=== PATIENT | male | born 1940 | race Caucasian/White ===

== ENCOUNTER 2016-02-07 14:31 | Inpatient (IN) | payer MEDICARE ==
[~2016-02-07] VITALS: Ht 182.9 cm; Wt 117.9 kg
[~2016-02-07 14:31] MED LIST: AMITRIPTYLINE100 MG PO; ANTIVERT12.5 MG PO; ANTIVERT25 MG PO; ASPIRIN325 MG PO; BUMEX 1 MG TAB1 MG PO; CELEXA20 MG PO; COLACE100 MG PO; EZFE 200200 MG PO; HUMALOG 30100 UNITS/ SC; HYDROCODONE-APA1 TAB PO; IPRAT-ALBUT 0.5-3 ML UPD; K-DUR20 MEQ PO; K-TAB10 MEQ PO; LANOXIN125 MCG PO; LANTUS INSULIN10 ML SC; LISINOPRIL10 MG PO; LOPRESSOR25 MG PO; METAGLIP 5/5001 TAB PO; MOTRIN800 MG PO; NASONEX NASAL S17 GM NS; NITROQUICK0.4 MG SL; NORCO 10/325 TA1 TA1 PO; NYSTATIN ORAL SU5 ML PO; OMEGA-3100 MG PO; PLAVIX75 MG PO; PRILOSEC20 MG PO; SINEMET CR 50-1 EACH PO; SINEMET CR 51 TAB.S1 PO; TOPICORT 0.25 %15 G1 TP; VIBRAMYCIN50 MG PO; ZOCOR40 MG PO
[2016-02-07 16:13] VITALS: BP 140/71
--- NOTE | 2016-02-07 17:58 | NUR ---
Pt was admitted to Rehab Unit from Med Surg. floor. He was and is alert and oriented x 3. Son was with him but has since gone home. He was brought to Rehab via wheelchair and 2 aides from Med Surg. floor. Vital signs were: Temp. 97.8 orally, pulse 76, resp. 14, b/p 140/71, 02Sat. 95%. Pt. has a saline lock in his left forearm. Bed alarm on. 02 at 3L/min per nc. Will be monitoring pt. and assisting prn with adl's. No voiced complaints of pain or discomfort. Call light in reach. Pt. was upset because he thought he was getting a single room and the Charge nurse was asked to speak with this pt. about this.
--- NOTE | 2016-02-07 19:35 | NUR ---
PT IS RESTING IN BED WITH EYES OPEN. ALERT AND ORIENTED X 3. DENIES ACUTE DISCOMFORT AT THIS TIME. LEFT FA SALINE LOCK NOTED. VSS. O2 IS ON @ 3LPM PER NC. SR'S ARE UP X 2 IN BED. CALL LIGHT AND BEDSIDE TABLE ARE WITHIN EASY REACH.
[2016-02-07 21:08] VITALS: BP 114/51
--- NOTE | 2016-02-07 22:11 | NUR ---
PT RESTING IN BED WITH EYES CLOSED. NO DISTRESS NOTED.
--- NOTE | 2016-02-07 23:49 | NUR ---
PT IS RESTING IN BED WITH EYES CLOSED.
--- NOTE | 2016-02-08 02:24 | NUR ---
PT RESTING IN BED WITH EYES CLOSED.
--- NOTE | 2016-02-08 05:45 | NUR ---
PT RESTING QUIETLY, RESPIRATIONS REGULAR AND UNLABORED, NO S/S OF ACUTE DISTRESS.
--- NOTE | 2016-02-08 07:00 | NUR ---
Pt. was received at the beginning of this shift in bed awake and oriented x 3. Call light was in reach. No voiced complaints or signs of discomfort or distress. Will be monitoring him throughout this shift and assisting prn with adl's.
[2016-02-08 08:38] VITALS: BP 132/78
[2016-02-08 12:57] VITALS: Ht 182.9 cm; Wt 117.9 kg
--- NOTE | 2016-02-08 16:56 | NUR ---
Pt. has had an uneventful day. Resting in bed at present time. No complaints of anykind. Blood sugar levels checked per order. Pt. wearing 02 per nc going at 3L/min.
[2016-02-08 19:00] VITALS: BP 141/68
--- NOTE | 2016-02-08 20:00 | NUR ---
PT IS RESTING IN BED WITH EYES OPEN. ALERT AND ORIENTED X 4. DENIES ACUTE DISCOMFORT AT THIS TIME. VSS. USING URINAL PRN. USES O2 @ 3LPM PRN. SR'S ARE UP X 2 IN BED. CALL LIGHT AND BEDSIDE TABLE ARE WITHIN EASY REACH.
--- NOTE | 2016-02-08 21:57 | NUR ---
PT IS RESTING QUIETLY IN BED WITH EYES CLOSED. RESPS ARE EVEN AND UNLABORED. NO ACUTE DISTRESS NOTED.
--- NOTE | 2016-02-09 00:10 | NUR ---
IN BED, RESTING ON LEFT SIDE, EYES CLOSED. WAS EARLIER ASSISTED TO SHOWER BY SNT. PATIENT WAS DRESSED AND LINENS CHANGED.
--- NOTE | 2016-02-09 00:21 | NUR ---
RESTING IN BED WITH EYES CLOSED.
--- NOTE | 2016-02-09 02:58 | NUR ---
PT IS RESTING QUIETLY IN BED WITH EYES CLOSED.
--- NOTE | 2016-02-09 03:55 | NUR ---
PT RESTING QUIETLY, EYES CLOSED, RESPIRATIONS REGULAR AND UNLABORED, NO S/S OF ACUTE DISTRESS.
[2016-02-09 06:58] LABS: BASOPHILS 0.2 % (0.0-2.0); HEMATOCRIT 38.2 % (42.0-54.0); HEMOGLOBIN 12.6 g/dL (13.5-17.5); IMMATURE GRANULOCYTES 0.3 % (0-5); LYMPHOCYTES 20.4 % (15-50); MCH 30.1 pg (26.0-34.0); MCV 91.2 fL (80.0-100.0); MEAN PLATELET VOLUME 11.2 fL (7.4-10.4); MONOCYTES 11.3 % (2-11); NEUTROPHILS 63.8 % (40-80); PLATELET COUNT 135 10x3/uL (130-400); RBC 4.19 10x6/uL (4.20-6.10); RDW 12.7 % (11.5-14.5); WBC 6.3 10x3/uL (4.8-10.8)
[2016-02-09 07:22] LABS: ANION GAP 13.7 mmol/L (8-16); CALCIUM 8.6 mg/dL (8.5-10.1); CARBON DIOXIDE 28.4 mmol/L (21.0-32.0); CREATININE - SERUM 1.8 mg/dL (0.6-1.3); POTASSIUM - SERUM 4.1 mmol/L (3.5-5.1)
--- NOTE | 2016-02-09 07:28 | NUR ---
RESTING QUIETLY IN BED. CALL LIGHT IN REACH
--- NOTE | 2016-02-09 07:40 | NUR ---
PATIENT ALERT/ORIENT X4 SITTING UP AT THE SIDE OF THE BED TO EAT BREAKFAST. CALL LIGHT WITHIN REACH. VOICES NO NEEDS
[2016-02-09 08:15] VITALS: BP 163/73
--- NOTE | 2016-02-09 10:23 | NUR ---
PATIENT IN REHAB ROOM. WORKING WITH PHYSICAL THERAPIST. DENIES ANY PAIN/DISC AT THIS TIME
--- NOTE | 2016-02-09 12:16 | NUR ---
PATIENT SITTING UP IN ROOM TO EAT LUNCH. HAS A VISITOR IN ROOM
--- NOTE | 2016-02-09 14:07 | NUR ---
PATIENT HAS A STEADY GAIT. WALKES FROM BED TO BATHROOM BY SELF
--- NOTE | 2016-02-09 14:34 | NUR ---
SALINE LOCK REMOVED FROM LEFT FOREARM. PATIENT IS NOT RECEIVING ANY IV MEDICATIONS
--- NOTE | 2016-02-09 16:34 | RHP ---
PATIENT: AMBROSE PADILLA MEDICAL RECORD: [id number] ACCOUNT: [id number] LOCATION:[facility] : 39 ADMISSION DATE: 02/07/16 REHABILITATION HISTORY AND PHYSICAL EXAMINATION POST ADMISSION PHYSICIAN EXAMINATION Post-admission Physical Exam and History and Physical DATE OF ADMISSION: 02/07/2016 HISTORY OF PRESENT ILLNESS: The patient is a 75-year-old gentleman who was admitted to the rehab with a working diagnosis of Parkinson's, diabetes and hypoglycemia. The patient is a very friendly 75-year-old gentleman who presents from home secondary to history of Parkinson's. He presented with severe weakness and hypoglycemia. He has got a history of diabetes, COPD, CHF, hypertension, and Parkinson's. He was recently in the hospital from January 03 and where he was brought to the ED with acute mental status changes. The patient was lethargic. He was somewhat arousable and followed commands, but did not remember the events. He knew that he is in the hospital, but could not report the year. His brother stated that he had been confused at home ____. He is admitted with acute mental status changes, fall, hyperkalemia, ____, dehydration at that time. He presents back to the hospital. His electrolyte abnormalities have been resolved, but he is still not able to get up and get around on his own. He lives by himself and will definitely benefit from inpatient rehabilitation. COMORBIDITIES: Include CHF, acute kidney injury, dementia, dehydration, hypertension, hypoglycemia, arthritis, chronic back pain, metabolic encephalopathy. History of numerous falls over the last couple of months, especially since December. History of coronary artery disease, esophageal reflux, hyperlipidemia, O2 dependence at home. He used smokeless tobacco and he has got a history of obstructive sleep apnea, but does not use CPAP. Current medical problems include Parkinson's, dementia, hypertension, coronary artery disease, depression, anxiety, chronic back pain, arthritis, and electrolyte abnormalities. PAST SURGICAL HISTORY: Includes gallbladder surgery, right knee, hernia, stents, and circumcision. ALLERGIES: No known drug allergies. CURRENT MEDICATIONS: Include potassium 10 mEq daily, Protonix 40 mg daily, Flonase nasal spray daily, metoprolol 25 mg daily, lisinopril 10 mg daily, digoxin 0.125 mg daily, Plavix 75 mg daily, Celexa 20 mg daily, Bumex 1.5 mg daily, aspirin 325 mg daily, meclizine 12.5 mg t.i.d. p.r.n., Zocor 40 mg at bedtime, sublingual nitroglycerin p.r.n., DuoNeb updrafts, ibuprofen 800 mg t.i.d. p.r.n. He is on [place] as needed for pain 10/325, metformin 1000 mg b.i.d., glipizide 10 mg b.i.d. with meals and Colace 100 mg daily. He is also on Sinemet 1 tab t.i.d. of the 50/200. He takes Elavil 100 mg q.h.s. HABITS: Does have a history of smokeless tobacco use. FAMILY HISTORY: Noncontributory. SOCIAL HISTORY: The patient wants to return home and be able to take care of HISTORY AND PHYSICAL [id number] AMBROSE PADILLA himself again. REVIEW OF SYSTEMS: GENERAL: Does complain of weakness. HEENT: Denies cold, cough, or congestion. CARDIOVASCULAR: Denies chest pain. PHYSICAL EXAMINATION: VITAL SIGNS: Stable, afebrile. GENERAL: Elderly gentleman in no acute distress, alert upon exam. HEENT: Normocephalic and atraumatic. Mucosa moist. NECK: Supple. No lymphadenopathy. LUNGS: Clear at this time. HEART: Regular rate and rhythm. ABDOMEN: Benign. EXTREMITIES: No clubbing, cyanosis or edema. NEUROLOGIC: He is intact. Does have some changes consistent with Parkinson's, especially shuffling gait when he gets up. I see no obvious pill rolling tremor at this time. ASSESSMENT: This is a 75-year-old gentleman who is admitted to rehab with a working diagnosis of Parkinson's. The patient has potential to make improvement. We instituted the following multidisciplinary therapies including to, but not limited to physical, occupational, respiratory, speech, nutritional services, prosthetics and orthotics. Given his complex condition and risk for more complications, rehabilitation services cannot be provided at a low level of care such as a long term facility. PLAN: 1. Admit to [facility] rehab for intensive inpatient therapy to include the following disciplines: A. Physical therapy to improve gait, all transfer skills and bed mobility to a modified independent level. B. Occupational therapy to improve activities of daily living to a modified independent level. C. Case management to assist with discharge planning and placement options. D. Nutrition to assist with nutritional needs. E. Rehabilitation nursing to assist and monitor the patient underlying medical conditions and to assist with any type of bowel or bladder management. 2. The patient's current medication and medical care will be continued. 3. The patient will be placed on standard fall precautions. 4. The patient's estimated length of stay is approximately 7-10 days. 5. Discuss this patient during care team staff meeting this week. TRANSINT:[id number] Voice Confirmation ID: [id number] DOCUMENT ID: [id number] HISTORY AND PHYSICAL [id number] AMBROSE PADILLA SCOTT MD at 1634 CC: [id number] DICTATION DATE: 02/08/16 151 GRAIN BROKER: 02/08/16 1729 ADM IN [facility] [address] [id number]
--- NOTE | 2016-02-09 16:40 | NUR ---
GLUCOSE LEVEL 60. APPLE JUICE AND VANILLA WAVERS GIVEN. HOLDING METFORMIN AND GLIPZIDE UNTIL AFTER PATENT EATS
--- NOTE | 2016-02-09 17:08 | NUR ---
CARE TEAM MEETING: PATIENT TENATIVE DISCHARGE DATE IS 02/21/16. HE HAS USED [employer] , PATIENT HAS 02, WALKER AND WHEELCHAIR AT HOME. HIS PCP IS DR. MCCARTNEY . WILL CONTINUE TO FOLLOW WITH PATIENT UNTIL DISCHARGED
[2016-02-09 19:00] VITALS: BP 166/69
--- NOTE | 2016-02-09 19:10 | NUR ---
PATIENT IN BED, AWAKE. FAMILY AT BEDSIDE.
--- NOTE | 2016-02-09 21:25 | NUR ---
ASSESSMENT AND HS MEDS COMPLETE. FAMILY MEMBERS PREPARING TO RETURN HOME. PATIENT DENIES CURRENT NEEDS.
--- NOTE | 2016-02-09 22:05 | NUR ---
ASSESSMENT AND HS MEDS COMPLETE. DENIES NEEDS.
--- NOTE | 2016-02-09 23:00 | NUR ---
SNT INFORMS ME PATIENT WANTS TO SLEEP IN BEDSIDE RECLINER HE SAYS BED IS UNCOMFORTABLE. BERNARDA SEAT PAD WAS PLACE IN RECLINER AT BEDSIDE AND ARMED. PATIENT WAS MADE COMFORTABLE IN RECLINER.
--- NOTE | 2016-02-10 02:00 | NUR ---
RESTING IN BED, SUPINE. APPEARS COMFORTABLE.
--- NOTE | 2016-02-10 04:00 | NUR ---
RESTING IN BED, SUPINE. SNORING. NO DISTRESS NOTED.
--- NOTE | 2016-02-10 07:00 | NUR ---
Pt. was received in bed at the beginning of this shift. Oriented x 3. Call light in reach. Vital signs: Temp. 98.0, pulse 78, resp. 14, b/p 148/69, 02Sat. 93%. 02 per nc going at 3L/min. Will be monitoring pt. throughout this shift and offering assist with adl's. No signs of any discomfort or distress.
[2016-02-10 13:26] VITALS: BP 148/69
--- NOTE | 2016-02-10 15:16 | NUR ---
Pt. has gone to therapy this afternoon. He did ask for pain medication this morning and received a [place] 10mg at 1005 because he said, "I hurt all over." His blood sugar levels are monitored closely. At 1000 bs was 226 and at 1130 bs was 164. Will be rechecking bs at 1630.
--- NOTE | 2016-02-10 19:15 | NUR ---
PATIENT IN BED, APPEARED TO BE DOZING BUT WAS WATCHING BOWL GAME ON TV. GAVE HIM HIS MENU TO COMPLETE.
[2016-02-10 21:45] VITALS: BP 152/90
--- NOTE | 2016-02-10 21:45 | NUR ---
ASSESSMENT AND HS MEDS COMPLETE. AGAIN PATIENT IS IRRITABLE AND BELABORING THE POINT THAT HE DOES NOT WANT TO BE BOTHERED BY NURSING AT CERTAIN HOURS WHEN HIS MEDICATIONS AND TREATMENTS ARE SCHEDULED. REMINDED HIM THAT HE IS IN REHAB FOR TREATMENT, THAT THE NURSING STAFF ARE FOLLOWING MD ORDERS TO TIME OF DELIVERY OF CERTAIN MEDICATIONS, AND THAT HE IS IN OUR CARE AND NOT AT HOME. THIS DID NOT SIT WELL WITH PATIENT, BUT I DISCUSSED IT WITH HIM THIS MORNING AND LAST NIGHT AND DAY SHIFT NURSE REPORTED THAT SHE DID ALSO. GAVE PATIENT HIS HS SNACK WITH ORANGE JUICE SUBSTITUTED FOR APPLESAUCE PER PATIENT REQUEST.
--- NOTE | 2016-02-11 | NUR ---
RESTING IN BED, EYES CLOSED.
--- NOTE | 2016-02-11 01:10 | NUR ---
SET OFF BED ALARM ATTEMPTING UP TO USE URINAL AT BEDSIDE. ASSISTED PATIENT UP TO BR COMMODE TO STAND AND URINATE HE WILL NOT SIT TO DO SO. PATIENT WAS INCONTINENT IN HIS UNDERWEAR, A SMALL AMOUNT ON HIS BED, REQUIRING A PINK PAD CHANGE, AND DRIBBLED ALL THE WAY TO COMMODE. CLEANED UP THE FLOOR AFTER CHANGING HIS PINK PAD, CLEANED THE COMMODE RIM (POOR AIM) AND ASSISTED HIM BACK TO BED WHERE HE CHANGED PUT ON FRESH UNDERWEAR. OFFERED HIM A PULL-UP DISPOSABLE BRIEF, BUT PATIENT REFUSED IT.
--- NOTE | 2016-02-11 02:15 | NUR ---
RESTING IN BED ON LEFT SIDE, EYES CLOSED. NO DISTRESS EVIDENT.
--- NOTE | 2016-02-11 04:15 | NUR ---
RESTING IN BED ON LEFT SIDE. AUDIBLE RESPIRATIONS ARE UNLABORED.
--- NOTE | 2016-02-11 06:50 | NUR ---
FSBS 122. PATIENT DENIES NEEDS.
[2016-02-11 06:57] LABS: BASOPHILS 0.2 % (0.0-2.0); EOSINOPHILS 4.5 % (0-7); HEMATOCRIT 41.3 % (42.0-54.0); HEMOGLOBIN 13.8 g/dL (13.5-17.5); IMMATURE GRANULOCYTES 0.2 % (0-5); LYMPHOCYTES 20.6 % (15-50); MCH 30.6 pg (26.0-34.0); MCHC 33.4 g/dL (31.0-37.0); MCV 91.6 fL (80.0-100.0); MEAN PLATELET VOLUME 11.5 fL (7.4-10.4); NEUTROPHILS 62.5 % (40-80); PLATELET COUNT 137 10x3/uL (130-400); RBC 4.51 10x6/uL (4.20-6.10); RDW 12.5 % (11.5-14.5); WBC 5.4 10x3/uL (4.8-10.8)
[2016-02-11 07:34] LABS: ANION GAP 13.3 mmol/L (8-16); CALCIUM 8.5 mg/dL (8.5-10.1); CARBON DIOXIDE 28.9 mmol/L (21.0-32.0); CREATININE - SERUM 1.6 mg/dL (0.6-1.3); POTASSIUM - SERUM 4.2 mmol/L (3.5-5.1)
--- NOTE | 2016-02-11 08:15 | NUR ---
PT RESTING IN BED WITH EYES OPEN CALL LIGHT IN REACH WILL MONITER
[2016-02-11 12:17] VITALS: BP 162/83
--- NOTE | 2016-02-11 14:41 | NUR ---
PT RESTING IN BED WITH EYES OPEN CALL LIGHT IN REACH NO PROBLEMS WILL MONITER
--- NOTE | 2016-02-11 17:39 | NUR ---
PT RESTING IN BED WITH EYES OPEN CALL LIGHT IN REACH WILL MONITER
[2016-02-11 20:00] VITALS: BP 151/81
--- NOTE | 2016-02-11 20:00 | NUR ---
PT IS RESTING IN BED WITH EYES OPEN. ALERT AND ORIENTED X 4. DENIES NEEDS AT THIS TIME. VSS. ASSISTED TO BATHROOM PRN. SR'S ARE UP X 2 IN BED. CALL LIGHT AND BEDSIDE TABLE ARE WITHIN EASY REACH.
--- NOTE | 2016-02-11 21:47 | NUR ---
PT IS RESTING QUIETLY IN BED WATCHING TV. REQUESTED AND GIVEN ORANGE JUICE FOR HIS HS SNACK.
--- NOTE | 2016-02-11 23:41 | NUR ---
PT IS RESTING QUIETLY IN BED WITH EYES CLOSED. RESPS ARE EVEN AND UNLABORED. NO ACUTE DISTRESS NOTED.
--- NOTE | 2016-02-12 00:16 | NUR ---
PT. IN BED LYING ALL THE WAY OVER ON HIS RIGHT SIDE WITH EYES CLOSED AND RESP. EVEN. PT. AROUSES EASILY AND DENIES ANY COMPLAINTS. CALL LIGHT WITHIN REACH.
--- NOTE | 2016-02-12 02:09 | NUR ---
RESTING IN BED WITH EYES CLOSED.
--- NOTE | 2016-02-12 06:18 | NUR ---
PT RESTING QUIETLY IN BED WITH EYES CLOSED. AWOKE EASILY TO VERBAL STIMULI. DENIES NEEDS.
[2016-02-12 07:00] VITALS: BP 171/70
--- NOTE | 2016-02-12 07:00 | NUR ---
Pt. was received in bed with eyes closed at the beginning of this shift. No voiced complaints or signs of discomfort or distress. Alert and oriented x 3. Vital signs were: Temp. 98.0, pulse 74, resp. 18, b/p 171/70, 02Sat. 97% on 3L/min. Will be monitoring him throughout this shift and offering assist with adl's as needed.
--- NOTE | 2016-02-12 19:30 | NUR ---
PT IS RESTING IN BED WATCHING TV. ALERT AND ORIENTED X 4. DENIES ACUTE DISCOMFORT AT THIS TIME. VSS. LARGE ABDOMINAL HERNIA NOTED. SR'S ARE UP X 2 IN BED. CALL LIGHT AND BEDSIDE TABLE ARE WITHIN EASY REACH.
[2016-02-12 19:54] VITALS: BP 143/84
--- NOTE | 2016-02-12 21:14 | NUR ---
PT IS RESTING IN BED WATCHING TV. NO NEEDS VOICED.
--- NOTE | 2016-02-13 00:06 | NUR ---
RESTING IN BED WITH EYES CLOSED.
--- NOTE | 2016-02-13 03:27 | NUR ---
PT RESTING QUIETLY IN BED WITH EYES CLOSED. NO DISTRESS NOTED.
--- NOTE | 2016-02-13 05:30 | NUR ---
PT RESTING QUIETLY, EYES CLOSED, RESPIRATIONS REGULAR AND UNLABORED, NO S/S OF ACUTE DISTRESS.
[2016-02-13 07:00] VITALS: BP 123/60
--- NOTE | 2016-02-13 07:00 | NUR ---
Pt. was received in bed at the begining of todays shift. No complaints of pain or discomfort. Vital signs: Temp. 97.5, pulse 75, resp. 18, b/p 123/60, 02Sat. 99%. Will be monitoring him throughout this day. He gets out of bed and to the bathroom on his own without help. Call light is in reach.
--- NOTE | 2016-02-13 17:43 | NUR ---
Pt. did ask for pain medication around 5pm and received a [place] 10mg at that time for his discomfort. Resting in bed, watching football game on tv.
--- NOTE | 2016-02-13 19:30 | NUR ---
PT IS RESTING IN BED WATCHING TV. ALERT AND ORIENTED X 4. DENIES ACUTE DISCOMFORT AT THIS TIME. VSS. SR'S ARE UP X 2 IN BED. CALL LIGHT AND BEDSIDE TABLE ARE WITHIN EASY REACH.
--- NOTE | 2016-02-13 21:11 | NUR ---
PT IS RESTING QUIETLY IN BED WITH EYES CLOSED. RESPS ARE EVEN AND UNLABORED. NO ACUTE DISTRESS NOTED.
[2016-02-13 22:05] VITALS: BP 152/91
--- NOTE | 2016-02-14 00:06 | NUR ---
RESTING QUIETLY IN BED WITH EYES CLOSED.
--- NOTE | 2016-02-14 03:00 | NUR ---
RESTING IN BED WITH EYES CLOSED.
--- NOTE | 2016-02-14 04:51 | NUR ---
pt resting supine position, respirations regular and unlabored, eyes closed, no s/s of acute distress.
[2016-02-14 06:01] LABS: BASOPHILS 0.3 % (0.0-2.0); EOSINOPHILS 4.3 % (0-7); HEMATOCRIT 40.2 % (42.0-54.0); HEMOGLOBIN 13.4 g/dL (13.5-17.5); IMMATURE GRANULOCYTES 0.2 % (0-5); LYMPHOCYTES 24.3 % (15-50); MCH 30.5 pg (26.0-34.0); MCHC 33.3 g/dL (31.0-37.0); MCV 91.4 fL (80.0-100.0); MEAN PLATELET VOLUME 11.7 fL (7.4-10.4); MONOCYTES 9.4 % (2-11); NEUTROPHILS 61.5 % (40-80); PLATELET COUNT 162 10x3/uL (130-400); RDW 12.3 % (11.5-14.5); WBC 6.3 10x3/uL (4.8-10.8)
[2016-02-14 06:33] LABS: ANION GAP 14.4 mmol/L (8-16); CALCIUM 9.3 mg/dL (8.5-10.1); CARBON DIOXIDE 28.2 mmol/L (21.0-32.0); CREATININE - SERUM 1.7 mg/dL (0.6-1.3); POTASSIUM - SERUM 4.6 mmol/L (3.5-5.1)
--- NOTE | 2016-02-14 08:15 | NUR ---
PT SITTING ON SIDE OF BED EATING BREAKFAST CALL LIGHT IN REACH WILL MONITER
[2016-02-14 08:44] VITALS: BP 124/58
--- NOTE | 2016-02-14 13:55 | NUR ---
PT IN THERAPY PT TOLERATING WELL WILL MONITER
[2016-02-14 19:40] VITALS: BP 144/76
--- NOTE | 2016-02-14 20:00 | NUR ---
PT IS RESTING QUIETLY IN BED WATCHING TV. ALERT AND ORIENTED X 4. VOICED COMPLAINT OF BACK PAIN LEVEL OF 6. STATES: "I WOULD LIKE A PAIN PILL WHEN YOU BRING MY NIGHT PILLS IN." SR'S ARE UP X 2 IN BED. CALL LIGHT AND BEDSIDE TABLE ARE WITHIN EASY REACH.
--- NOTE | 2016-02-14 22:03 | NUR ---
PT IS RESTING IN BED WATCHING TV. NO NEEDS VOICED.
--- NOTE | 2016-02-15 00:11 | NUR ---
PT RESTING IN BED WITH EYES CLOSED.
--- NOTE | 2016-02-15 02:38 | NUR ---
PT RESTING, EYES CLOSED. BED LOW. CL IN REACH.
--- NOTE | 2016-02-15 06:03 | NUR ---
PT RESTING IN BED WITH EYES OPEN. NO NEEDS VOICED.
--- NOTE | 2016-02-15 07:37 | NUR ---
RESTING QUIETLY IN BED. CALL LIGHT IN REACH
--- NOTE | 2016-02-15 08:15 | NUR ---
PT RESTING IN BED WITH EYES OPEN CALL LIGHT IN REACH NO PROBLEMS PT EATING BREAKFAST WILL MONITER
[2016-02-15 08:34] VITALS: BP 119/56
[2016-02-15] MEDS ORDERED: HYDROCODONE-APA1 TAB PO (11:39)
[2016-02-15] MEDS ORDERED: LISINOPRIL10 MG PO (11:39)
[2016-02-15] MEDS ORDERED: GLUCOPHAGE500 MG PO (11:40)
[2016-02-15] MEDS ORDERED: GLUCOTROL 5 MG T5 MG PO (11:40)
--- NOTE | 2016-02-15 14:56 | NUR ---
PT RESTING IN BED WITH EYES OPEN CALL LIGHT IN REACH NO PROBLEMS WILL MONITER
--- NOTE | 2016-02-15 16:04 | NUR ---
PATIENT DISCHARGING HOME 02/16/16 WITH FAMILY. [facility] WILL RESUME CARE OF PATIENT. NO DME NEEDED, PATIENT HAS O2, WALKER , WHEELCHAIR. APPOINTMENT: DR. MCCARTNEY 02/24/16 @ 9:15. PATIENT SCHOICE FORM FOR HOME HEALTH AND [facility] FORM SIGNED AND FILED IN CHART. WILL CONTINUE TO FOLLOW WITH PATIENT UNTIL DISCHARGED
--- NOTE | 2016-02-15 17:14 | NUR ---
PT RESTING IN BED WITH EYES OPEN CALL LIGHT IN REACH NO PROBLEMS WILL MONITER
--- NOTE | 2016-02-15 19:15 | NUR ---
PT. IN BED WITH HOB UP FOR COMFORT AND IS WATCHING TV. ASSESSMENT COMPLETED. PT. REQUESTING HIS PAIN PILL WITH NIGHTTIMES MEDICATIONS TONIGHT FOR HIS MAJOR JOINT PAINS. CALL LIGHT WITHIN REACH.
[2016-02-15 21:19] VITALS: BP 134/109
--- NOTE | 2016-02-15 23:14 | NUR ---
PT. IN BED WITH HOB UP FOR COMFORT AND IS STILL WATCHING TV AND DRINKING HIS ICE WATER. PT. DENIES ANY OTHER NEEDS AT THIS TIME AND HAS HIS CALL LIGHT WITHIN REACH.
[2016-02-16 04:58] LABS: BASOPHILS 0.3 % (0.0-2.0); EOSINOPHILS 4.8 % (0-7); HEMATOCRIT 39.4 % (42.0-54.0); HEMOGLOBIN 12.9 g/dL (13.5-17.5); IMMATURE GRANULOCYTES 0.2 % (0-5); LYMPHOCYTES 24.2 % (15-50); MCH 30.1 pg (26.0-34.0); MCHC 32.7 g/dL (31.0-37.0); MCV 92.1 fL (80.0-100.0); MEAN PLATELET VOLUME 11.7 fL (7.4-10.4); MONOCYTES 10.9 % (2-11); NEUTROPHILS 59.6 % (40-80); PLATELET COUNT 175 10x3/uL (130-400); RBC 4.28 10x6/uL (4.20-6.10); RDW 12.2 % (11.5-14.5); WBC 6.4 10x3/uL (4.8-10.8)
[2016-02-16 05:10] LABS: ANION GAP 11.6 mmol/L (8-16); CALCIUM 8.5 mg/dL (8.5-10.1); CARBON DIOXIDE 31.4 mmol/L (21.0-32.0); CREATININE - SERUM 1.8 mg/dL (0.6-1.3)
--- NOTE | 2016-02-16 06:24 | NUR ---
PT. IN BED WITH HOB UP FOR COMFORT WATCHING TV. PT. HAS NO VOICED NEEDS AND HIS CALL LIGHT IS WITHIN REACH.
--- NOTE | 2016-02-16 08:15 | NUR ---
PT RESTING IN BED WITH EYES OPEN CALL LIGHT IN REACH NO PROBLEMS WILL MONITER
[2016-02-16 09:51] VITALS: BP 178/86
--- NOTE | 2016-02-16 11:45 | NUR ---
PT DISCHARGED TO HOME VIA WHEELCHAIR WITH FAMILY MEMBER MED AND DISCHARGE SUMMARY REVIEWED WITH PT NO QUESTIONS OR CONCERNS PT STATED HE HAD ALL HIS MEDS TOLERATED WELL
== END 2016-02-16 13:59 | disposition home health service (06) | DRG 56 ==
LOC: D.REHAB 14:31
PROVIDERS: ADMIT Emergency Medicine
DX: G20 Parkinson's disease (principal); G93.41 Metabolic encephalopathy; N17.9 Acute kidney failure, unspecified; E11.649 Type 2 diabetes mellitus with hypoglycemia without coma; R53.1 Weakness; J44.9 Chronic obstructive pulmonary disease, unspecified; I11.0 Hypertensive heart disease with heart failure; I50.9 Heart failure, unspecified; F03.90 Unspecified dementia, unspecified severity, without behavioral disturbance, psychotic disturbance, mood disturbance, and anxiety; E86.0 Dehydration; M19.90 Unspecified osteoarthritis, unspecified site; G89.29 Other chronic pain; Z91.81 History of falling; K21.9 Gastro-esophageal reflux disease without esophagitis; E78.5 Hyperlipidemia, unspecified; G47.33 Obstructive sleep apnea (adult) (pediatric); E87.8 Other disorders of electrolyte and fluid balance, not elsewhere classified; F41.8 Other specified anxiety disorders

== ENCOUNTER 2016-04-11 21:24 | Inpatient (IN) | payer MEDICARE ==
[~2016-04-11] VITALS: Ht 188 cm; Wt 42.7 kg
--- NOTE | ~2016-04-11 | HEMODYNAMI ---
PATIENT:AMBROSE PADILLA MEDICAL RECORD: [id number] : 38 LOCATION:[address] ADMISSION DATE: 04/12/16 Generatedon:04/13/201612:33 Patient name: AMBROSE PADILLA Patient #: [id number] SSN: [id number] B: 1940 Date of study: 04/13/2016 Page: Of Hemodynamic Procedure Report Patient Data Patient Demographics Procedure consent was obtained First Name: AMBROSE Gender: Male Last Name: VALERIE : 1940 Middle Initial: R Age: 75 year(s) Patient #: [id number] Race: Unknown Additional ID: [id number] Contact details Address: [address] [place] [address] [address] State: [place] City: [place] Zip code: [address] Past Medical History Allergies: No known allergies Admission Admission Data Admission Date: 04/12/2016 Admission Time: 14:23 Room #: .[facility] Insurance Payor: Medicare, Medicaid Height (in.): 74 BSA: 2.43 (m2) Height (cm.): 187.96 BMI: 33.47 (kg/m2) Weight (lbs.): 260.65 Weight (kg.): 118.23 Lab Results Lab Result Date: 04/13/2016 Lab Result Time: 5:33 Biochemistry Name Units Result Min Max BUN mg/dl 32 --(----)-* 7 18 Creatinine mg/dl 1.4 --(----)*- 0.6 1.3 CBC Name Units Result Min Max Hematocrit % 42.7 --(*---)-- 42 54 Hemoglobin g/dl 13.9 --(*---)-- 13.5 17.5 Procedure Procedure Types Cath Procedure Diagnostic Procedure [facility] w/Coronaries PCI Procedure Coronary Stent Initial Miscellaneous Procedures Moderate Sedation up to 30 minutes Peripheral Cath Diagnostic Procedure Cath Peripheral Gnxhu-Gdotayi-Gnd-Off Procedure Description Procedure Date Procedure Date: 04/13/2016 Procedure Start Time: 12:08 Procedure End Time: 12:29 Procedure Staff Name Function Ronald Wray MD Performing Physician Zacarias Jett RT Scrub Ange Weaver RN Nurse Alek Calvillo RT Monitor Procedure Data Cath Procedure Fluoroscopy Diagnostic fluoroscopy Total fluoroscopy Time: 4.9 time: 4.9 min min Diagnostic fluoroscopy Total fluoroscopy dose: dose: 1105 mGy 1105 mGy Contrast Material Contrast Material Type Amount (ml) Isovue 300 143 Entry Location Entry Primary Successful Side Size Upsize Upsize Entry Closure Succes sful Closure Location (Fr) 1 (Fr) 2 (Fr) Remarks Device Remarks Femoral Left 5 Fr 6 Fr Vascade artery Short Closure System Estimated blood loss: 10 ml Diagnostic catheters Device Type Used For End Catheter Placement Cordis 5Fr Pigtail Procedure Catheter (MP) Cordis 5Fr JL 4.0 Procedure Catheter (MP) Cordis 5Fr 3DRC Catheter Procedure (MP) Cordis 5Fr Pigtail Procedure Catheter (MP) Procedure Complications No complications Procedure Medications Medication Administration Route Dosage Oxygen NC 2 l/min Heparin Flush Bag added to field 2 bags (1000units/500ml NS) Lidocaine 2% added to field 20 Versed I.V. 1 mg Fentanyl I.V. 50 mcg Heparin Bolus I.V. 4000 units Versed I.V. 1 mg Fentanyl I.V. 50 mcg Versed I.V. 1 mg Fentanyl I.V. 50 mcg Hemodynamics Rest BSA: 2.43 (m2) HGB: 13.9 (g/dl) O2 Consumption: Estimated: 292.05 (ml/min) O2 Co nsumption indexed: Estimated:120.19 (ml/min/m) Heart Rate: 84 (bpm) Snapshots Pre Cath Intra NCS Post Cath Vital Signs Time Heart Resp SPO2 etCO2 [id number] NIBP (mmHg) Rhythm Pain Sedation Rate (ipm) (%) (mmHg) (mmHg) Status Level (bpm) 11:58:49 79 16 94 0 0 135/92(128) NSR 0 (11) 10(A) , No pain 12:05:59 78 25 96 0 0 135/81(109) NSR 0 (11) 10(A) , No pain 12:10:19 76 16 97 0 0 134/68(98) NSR 0 (11) 10(A) , No pain 12:14:35 86 19 95 0 0 132/81(104) NSR 0 (11) 9(A) , No pain 12:18:51 80 20 95 0 0 142/84(121) NSR 0 (11) 9(A) , No pain 12:23:30 80 21 95 0 0 151/36(101) NSR 0 (11) 9(A) , No pain 12:27:42 79 22 95 0 0 144/90(111) NSR 0 (11) 9(A) , No pain Medications Time Medication Route Dose Verified Delivered Reason Notes Effectiveness by by 12:00:04 Oxygen NC 2 Ronald Ange Per physician l/min Nils Weaver RN 12:00:15 Heparin Flush added 2 Ronald Ronald used for Bag to bags Nils Wray MD procedure (1000units/500ml field NS) 12:00:22 Lidocaine 2% added 20ml Ronald Ronald used for to vial Nils Wray MD procedure field 12:07:38 Versed I.V. 1 mg Ronald Ange for sedation Nils Weaver RN 12:07:45 Fentanyl I.V. 50 Ronald Ange for sedation mcg Nils Weaver RN 12:09:49 Versed I.V. 1 mg Ronald Ange for sedation Nils Weaver RN 12:09:59 Fentanyl I.V. 50 Ronald Ange for sedation mcg Nils Weaver RN 12:12:06 Versed I.V. 1 mg Ronald Ange for sedation Nils Weaver RN 12:12:24 Fentanyl I.V. 50 Ronald Ange for sedation mcg Nils Weaver RN 12:17:47 Heparin Bolus I.V. 4000 Ronald Ange for dose units Nils Weaver RN anticoagulation verified with dr wray Procedure Log Time Note 11:43:39 Time tracking: Regular hours 11:44:09 Zacarias Jett RT(R) sent for patient. Start room use. 11:44:15 Plan of Care:Hemodynamics will remain stable., Cardiac rhythm will remain stable., Comfort level will be maintained., Respiratory function will remain adequate., Patient/ family verbilizes understanding of procedure., Procedure tolerated without complication., Recovers from procedure without complications.. 11:46:32 Informed consent obtained and on chart 11:48:30 Lab Result : Creatinine 1.4 mg/dl 11:48:30 Lab Result : BUN 32 mg/dl 11:48:30 Lab Result : Hematocrit 42.7 % 11:48:30 Lab Result : Hemoglobin 13.9 g/dl 11:48:50 Patient Height : 74 inches 11:49:00 Patient Weight : 260.65 lbs 11:49:11 Insurance Payor : Medicare, Medicaid 11:49:20 ACC Patient presents with Unstable Angina CCS Anginal Class 3--Marked limitation of physical activity, angina occurs with ordinary activity.. 11:50:23 Patient received from Med II to CCL 1 Alert and oriented. Tansferred to table in Supine position. 11:50:24 Warm blankets applied, and keira hugger turned on for patient comfort. 11:50:24 Correct patient and procedure confirmed by team. 11:50:25 ECG and BP/O2 sat monitors applied to patient. 11:50:38 H&P Date Dictated: 04/12/2016 Within 30 days and on chart.. 11:50:40 Pre-procedure instructions explained to patient. 11:50:40 Pre-op teaching completed and patient verbalized understanding. 12:00:04 Oxygen 2 l/min NC was given by Ange Weaver RN; Per physician; 12:00:15 Heparin Flush Bag (1000units/500ml NS) 2 bags added to field was given by Ronald Wray MD; used for procedure; 12:00:22 Lidocaine 2% 20ml vial added to field was given by Ronald Wray MD; used for procedure; 12:04:22 Family in patients room. 12:04:23 Patient NPO since Midnight. 12:04:29 Patient allergic to No known allergies 12:04:31 Is the patient allergic to Iodine/contrast media? No. 12:04:34 Is patient on blood thinner?Yes 12:04:37 ACC The patient was administered the following blood thiners within the last 24 hours: ACCPlavix 12:04:42 Patient diabetic? No. 12:04:51 Vital chart was started 12:04:52 Baseline sample Acquired. 12:05:05 Rhythm: atrial fibrillation 12:05:15 Previous problem with sedation/anesthesia? No ? 12:05:16 Snore? Yes 12:05:17 Sleep apnea? Yes 12:05:20 Deviated septum? No 12:05:21 Opens mouth fully? Yes 12:05:22 Sticks out tongue? Yes 12:05:27 Airway obstruction? Yes copd 12:05:33 Dentures? Yes out 12:05:37 Pre procedure: right dorsailis pedis pulse 1+ Palpable, but thready & weak; easily obliterated 12:05:39 Pre procedure: left dorsailis pedis pulse 1+ Palpable, but thready & weak; easily obliterated 12:05:42 Patient pain scale 0/10 ?. 12:05:48 IV patent on arrival in left antecubital with 0.9% NaCl at [facility]. 12:05:51 Lab results completed and on chart. 12:05:55 Bilateral groins area was prepped with chlora-prep and draped in sterile fashion 12:05:56 Alarms reviewed by R. N. 12:05:56 Sharps counted by scrub and verified by R.N. 12:05:59 Use device set Femoral Dx 12:06:00 Tegaderm 4 x 4 opened to sterile field. 12:06:01 Acist Manifold opened to sterile field. 12:06:02 Acist Hand Control opened to sterile field. 12:06:03 Acist Syringe opened to sterile field. 12:06:04 Bag Decanter opened to sterile field. 12:06:04 Medline Cath Pack opened to sterile field. 12:06:04 Terumo 5Fr [place] Sheath opened to sterile field. 12:06:05 St Sushil 260cm J .035 wire opened to sterile field. 12:06:06 Diagnostic Infinity 5Fr Multipack catheter opened to sterile field. 12:06:12 Physician arrived 12:06:12 --------ALL STOP TIME OUT------ 12:06:13 Final Timeout: patient, procedure, and site verified with staff and physician. All members of the team are in agreement. 12:06:14 Bilateral groins site verified by team. 12:06:17 Physical assessment completed. ASA score P 3 - A patient with severe systemic disease as per Ronald Wray MD. 12:06:22 Sedation plan: IV Moderate Sedation Versed, Fentanyl 12:07:38 Versed 1 mg I.V. was given by Ange Weaver RN; for sedation; 12:07:45 Fentanyl 50 mcg I.V. was given by Ange Weaver RN; for sedation; 12:08:40 Zero performed for pressure channel P1 12:08:44 Zero performed for pressure channel P1 12:08:53 Procedure started. 12:08:53 Full Disclosure recording started 12:08:57 Local anesthetic to left femerol artery with Lidocaine 2% by Ronald Wray MD.INITIAL ACCESS ONLY 12:09:05 A 5 Fr sheath was inserted into the Left Femoral artery 12:09:26 Procedure type changed to Cath procedure, Diagnostic procedure, LHC, LHC w/Coronaries, PCI procedure, Coronary Stent Initial, Miscellaneous Procedures, Moderate Sedation up to 30 minutes, Peripheral Cath Diagnostic Procedure, Cath Peripheral, Acfsz-Caxluhg-Rve-Off 12:09:49 Versed 1 mg I.V. was given by Ange Weaver RN; for sedation; 12:09:54 A Cordis 5Fr Pigtail Catheter (MP) was advanced over the wire and used for Procedure. 12:09:59 Fentanyl 50 mcg I.V. was given by Ange Weaver RN; for sedation; 12:11:31 LV gram done using ELMORE 12:11:34 Injector settings: Ml/sec: 10, Volume: 20, 12:11:35 LV hemodynamics recorded. 12:11:47 EF : 50 % 12:12:06 Versed 1 mg I.V. was given by Ange Weaver RN; for sedation; 12:12:19 Catheter removed. 12:12:23 A Cordis 5Fr JL 4.0 Catheter (MP) was advanced over the wire and used for Procedure. 12:12:24 Fentanyl 50 mcg I.V. was given by Ange Weaver RN; for sedation; 12:13:14 Lutz Whisper J 300cm 0.014 guide wire opened to sterile field. 12:13:15 LCA angiography performed. 12:13:15 Merit BasixCompak Inflation Kit opened to sterile field. 12:13:16 Terumo 6Fr [place] Sheath opened to sterile field. 12:13:21 Catheter exchanged over wire. 12:13:25 A Cordis 5Fr 3DRC Catheter (MP) was advanced over the wire and used for Procedure. 12:15:10 RCA angiography performed. 12:15:12 Catheter removed. 12:15:24 A Cordis 5Fr Pigtail Catheter (MP) was advanced over the wire and used for Procedure. 12:15:37 Abdominal angiogram w/ runoff was performed. 12:15:40 Right leg runoff performed. 12:15:42 Left leg runoff performed. 12:16:26 Cordis 6FR XBLAD 4.0 guide catheter opened to sterile field. 12:16:45 Catheter removed. 12:16:55 Sheath upsized to a 6 Fr Short. 12:17:47 Heparin Bolus 4000 units I.V. was given by Ange Weaver RN; for anticoagulation; dose verified with dr wray 12:17:53 6 Fr xblad 4 guide catheter was inserted over the wire 12:20:16 ACC PCI Site: [facility] has 95% stenosis. 12:20:18 ACC Pre-intervention JOSE Flow is 3. 12:20:25 [place] Restorius Choice PT Extra Support J 300cm .014 gu opened to sterile field. 12:20:30 choice pt wire advanced. 12:20:31 Wire advanced across lesion. 12:21:04 Inflation number: 1 A [place] Restorius Bacon 3.5 X 15 balloon was prepped and advanced across the Mid CX, then inflated to 21 PAULETTE for 0:10 (min:sec). 12:21:07 Balloon removed over the wire. 12:22:53 Inflation Number: 2 A Medtronic Integrity 4.0 X 15 stent was prepped and advanced across the Mid CX. The stent was deployed at 21 PAULETTE for 0:10 (min:sec). 12:22:57 ACC Post-intervention JOSE Flow is 3. 12:23:02 Stent catheter was removed intact over wire. 12:23:03 Wire removed. 12:23:04 Guide catheter removed. 12:23:56 Vascade 6/7 Fr Closure Device opened to sterile field. 12:24:41 Sheath removed intact; hemostasis achieved with Vascade Closure System to the Left Femoral artery. 12:24:43 Procedure ended.(Physican Out) 12:24:53 Fluoroscopy time 04.90 minutes. 12:24:57 Fluoroscopy dose: 1105 mGy 12:24:57 Flurop Dose total: 1105 12:25:15 Contrast amount:Isovue 300 143ml. 12:25:17 Sharps counted by scrub and verified by R.N. 12:25:20 Insertion/operative site no bleeding no hematoma. 12:25:23 Post-op/insertion site Left Femoral artery dressed using a 4 x 4 and Tegaderm. 12:25:40 Post left femerol artery:stable, soft, clean and dry 12:25:46 Post Procedure Pulses reassessed and unchanged 12:25:48 Post-procedure physical assessment completed. ASA score P 3 - A patient with severe systemic disease as per Ronald Wray MD. 12:25:51 Post procedure rhythm: unchanged. 12::54 Estimated blood loss: 10 ml 12::55 Post procedure instruction explained to patient.Patient verbalizes understanding. 12::56 Post procedure instruction explained to patient.Patient verbalizes understanding. 12::57 Patient needs reinforcement of post procedure teaching. 12:28:42 Procedure and supply charges have been captured, reviewed, submitted and are correct. 12::45 Procedure Complication : No complications 12::48 Vital chart was stopped 12::49 See physician's report for complete and final results. 12::50 Report given to PCU. 12::53 Patient transfered to PCU with Stretcher. 12:29:27 Procedure ended. 12:29:27 Full Disclosure recording stopped 12:30:02 ACC-PCI Only Patient was given prescriptions, or instructed by Ronald Wray MD to start/continue the following medications upon discharge: Plavix 12:30:04 End room use (Document Last) Intervention Summary Intervention Notes Time ActionType Lesion and Equipment Action# Pressure Duration Attributes Used 12:21:04 Inflate Mid CX [place] 1 21 00:10 balloon Sci Bacon 3.5 X 15 balloon 12:22:53 Place stent Mid CX Medtronic 2 21 00:10 Integrity 4.0 X 15 stent Device Usage Item Name Manufacture Quantity Catalog Number Hospital Part Current Mini [facility] Lot# / Charge Number Stock Stock Serial# Code Tegaderm 4 3M 1 [id number] 5 x 4 Acist Acist 1 39233 272763 [id number] [id number] 5 Manifold Medical Systems Inc Acist Hand Acist 1 97013 085867 356474 792290 5 Control Medical Systems Inc Acist Acist 1 24211 832053 644165 705524 20 Syringe Medical Systems Inc Bag Microtek 1 2002S 665125 47605 860730 5 Decanter Medical Inc. Medline Cardinal 1 [id number] 032524 25290 184457 5 Cath Pack Health Terumo 5Fr Terumo 1 [id number] 147061 430173 688753 [address] St Sushil 1 925743 925758 536350 050349 30 260cm J .035 wire Diagnostic Cardinal 1 [id number] 006435 82120 968317 30 Infinity Health 5Fr Multipack catheter Cordis 5Fr Cardinal 1 810358 5 Pigtail Health Catheter (MP) Cordis 5Fr Cardinal 1 388486 5 JL 4.0 Health Catheter (MP) Lutz Lutz 1 [id number] 796436 342378 175700 5 Whisper J Vascular 300cm 0.014 guide wire [facility] 1 [id number] 583550 089712 463491 15 BasixCompak Medical Inflation Kit Terumo 6Fr Terumo 1 [id number] 157670 671804 598768 40 [place] Sheath Cordis 5Fr Cardinal 1 075451 5 3DRC Health Catheter (MP) Cordis 6FR Cardinal 1 [id number] 146617 149130 203100 3 XBLAD 4.0 Health guide catheter [place] Sci [place] 1 [id number] 12223220180813 551487 5 Choice PT Scientific Extra Support J 300cm .014 gu [place] Sci [place] 1 [id number] 392185 871086 223578 1 [id number] Bacon Scientific 3.5 X 15 balloon Medtronic Medtronic 1 [id number] 326769 732687 7 [id number] Integrity 4.0 X 15 stent Vascade 6/7 Cardiva 1 [id number] 222573 284601 348238 5 Fr Closure Medical, Device Inc. Signature Audit Wyocena Stage Time Signature Unsigned Intra-Procedure 04/13/2016 Alek Calvillo 12:33:10 PM RT(R) Signatures Monitor : Alek Calvillo RT Signature : Date : Time : [facility] [address] [place] [place] [address]
--- NOTE | ~2016-04-11 | HEMODYNAMI ---
PATIENT:AMBROSE PADILLA MEDICAL RECORD: [id number] : 38 LOCATION[facility] [id number] ADMISSION DATE: 04/12/16 Generatedon:04/14/201615:23 Patient name: AMBROSE PADILLA Patient #: [id number] SSN: [id number] : 1940 Date of study: 04/14/2016 Page: Of Hemodynamic Procedure Report Patient Data Patient Demographics Procedure consent was obtained First Name: AMBROSE Gender: Male Last Name: VALERIE : 1940 Middle Initial: R Age: 75 year(s) Patient #: [id number] Race: SSN: [id number] Additional ID: [id number] Contact details Address: [address] [place] [address] [address] State: [place] City: [place] Zip code: [address] Past Medical History Allergies: No known allergies Admission Admission Data Admission Date: 04/12/2016 Admission Time: 14:23 Arrival Date: 04/12/2016 Arrival Time: 14:23 Admit Source: Other Insurance Payor: Medicare, Room #: D.2139 Medicaid Height (in.): 74 BSA: 2.43 (m2) Height (cm.): 187.96 BMI: 33.47 (kg/m2) Weight (lbs.): 260.65 Weight (kg.): 118.23 Lab Results Lab Result Date: 04/14/2016 Lab Result Time: 0:00 Biochemistry Name Units Result Min Max BUN mg/dl 32 --(----)-* 7 18 Creatinine mg/dl 1.4 --(----)*- 0.6 1.3 CBC Name Units Result Min Max Hemoglobin g/dl 13.9 --(*---)-- 13.5 17.5 Procedure Procedure Types Cath Procedure Diagnostic Procedure PCI Procedure Coronary Atherectomy Atherectomy w/Stent Coronary Initial Miscellaneous Procedures Moderate Sedation up to 45 minutes Procedure Description Procedure Date Procedure Date: 04/14/2016 Procedure Start Time: 14:04 Procedure End Time: 15:15 Procedure Staff Name Function Ronald Wray MD Performing Physician Alek Calvillo RT Scrub Audrey Peres RT Scrub Jakob Angel RN Nurse Marysol Power RT Monitor Procedure Data Cath Procedure Fluoroscopy Diagnostic fluoroscopy Total fluoroscopy Time: 31 time: 31 min min Diagnostic fluoroscopy Total fluoroscopy dose: dose: 3651 mGy 3651 mGy Contrast Material Contrast Material Type Amount (ml) Isovue 370 194 Entry Location Entry Primary Successful Side Size Upsize Upsize Entry Closure Montoya ccessful Closure Location (Fr) 1 (Fr) 2 (Fr) Remarks Device Remarks Femoral Right 7 Fr Exoseal artery Short Femoral Right 6 Fr Manual vein Short Compression Estimated blood loss: 5 ml Procedure Complications No complications Procedure Medications Medication Administration Route Dosage Oxygen NC 2 l/min Lidocaine 2% added to field 20 Heparin Flush Bag added to field 2 bags (1000units/500ml NS) 0.9% NaCl I.V. 100 ml/hr Versed I.V. 1 mg Fentanyl I.V. 50 mcg unlisted medication added to field 1000 Versed I.V. 1 mg Fentanyl I.V. 50 mcg Heparin Bolus I.V. 5000 units Versed I.V. 1 mg Fentanyl I.V. 50 mcg Versed I.V. 1 mg Fentanyl I.V. 50 mcg Versed I.V. 1 mg Fentanyl I.V. 50 mcg Nitroglycerin IC/IA I.C. 200 mcg Versed I.V. 1 mg Fentanyl I.V. 50 mcg Heparin Bolus I.V. 3000 units Versed I.V. 1 mg Versed I.V. 1 mg Versed I.V. 1 mg Fentanyl I.V. 50 mcg Fentanyl I.V. 50 mcg Plavix P.O. 75 mg Hemodynamics Rest BSA: 2.43 (m2) HGB: 13.9 (g/dl) O2 Consumption: Estimated: 291.8 (ml/min) O2 Con sumption indexed: Estimated:120.08 (ml/min/m) Heart Rate: 84 (bpm) Snapshots Pre Cath Intra NCS Post Cath Vital Signs Time Heart Resp SPO2 NIBP (mmHg) Rhythm Pain Sedation Rate (ipm) (%) Status Level (bpm) 13:48:01 80 17 95 199/98(142) NSR 0 (11) 10(A) , No pain 13:52:44 82 17 93 182/86(139) NSR 0 (11) 10(A) , No pain 13:57:19 80 20 95 179/95(131) NSR 0 (11) 10(A) , No pain 14:01:55 79 18 93 175/85(125) NSR 0 (11) 10(A) , No pain 14:06:23 78 17 95 160/92(130) NSR 0 (11) 9(A) , No pain 14:10:54 78 18 94 167/78(120) NSR 0 (11) 9(A) , No pain 14:17:21 80 20 96 158/67(107) NSR 0 (11) 9(A) , No pain 14:21:35 81 21 94 144/72(112) NSR 0 (11) 9(A) , No pain 14:25:55 82 18 96 156/75(110) NSR 0 (11) 9(A) , No pain 14:30:13 85 20 97 153/69(120) NSR 0 (11) 9(A) , No pain 14:34:23 89 18 93 132/70(96) NSR 0 (11) 9(A) , No pain 14:39:26 88 20 97 155/79(115) NSR 0 (11) 9(A) , No pain 14:43:44 89 19 95 160/92(110) NSR 0 (11) 9(A) , No pain 14:48:04 90 19 98 174/126(135) NSR 0 (11) 9(A) , No pain 14:52:32 91 19 97 191/113(143) NSR 0 (11) 9(A) , No pain 14:57:07 91 22 95 181/102(143) NSR 0 (11) 9(A) , No pain 15:01:35 94 18 94 176/99(139) NSR 0 (11) 9(A) , No pain 15:06:20 97 18 98 207/112(165) NSR 0 (11) 9(A) , No pain 15:12:41 96 16 96 Time NSR 0 (11) 10(A) Exceeded , No pain Medications Time Medication Route Dose Verified Delivered Reason N otes Effectiveness by by 13:46:08 Oxygen NC 2 l/min Ronald Buffie used for Nils Angel RN procedure 13:46:15 Lidocaine 2% added 20ml vial Ronald Ronald for local to Nils Wray MD anesthetic field 13:46:21 Heparin Flush added 2 bags Ronaldcortney Cardenas used for Bag to Nils Wray MD procedure (1000units/500ml field NS) 13:46:30 0.9% NaCl I.V. 100 ml/hr Ronaldcortney Robert Per physician Nils Angel RN 13:58:40 Versed I.V. 1 mg Ronald Buffie for sedation Nils Angel RN 13:58:46 Fentanyl I.V. 50 mcg Ronald Buffie for sedation Nils Angel RN 14:04:18 Versed I.V. 1 mg Ronald Buffie for sedation Nils Angel RN 14:04:22 Fentanyl I.V. 50 mcg Ronald Buffie for sedation Nils Angel RN 14:09:39 Heparin Bolus I.V. 5000 units Ronald Robert for v erified Nils Angel RN anticoagulation with dr wray 14:09:42 Versed I.V. 1 mg Ronald Buffie for sedation Nils Angel RN 14:09:46 Fentanyl I.V. 50 mcg Ronald Buffie for sedation Nils Angel RN 14:12:53 Versed I.V. 1 mg Ronald Buffie for sedation Nils Angel RN 14:12:58 Fentanyl I.V. 50 mcg Ronald Buffie for sedation Nils Angel RN 14:20:50 Versed I.V. 1 mg Ronald Buffie for sedation Nils Angel RN 14:20:53 Fentanyl I.V. 50 mcg Ronald Buffie for sedation Nils Angel RN 14:24:26 Versed I.V. 1 mg Ronald Ronald for sedation Nils Wray MD 14:24:29 Fentanyl I.V. 50 mcg Ronald Cardenas for sedation Nils Wray MD 14:24:42 diamondkiersten added 1000 ml Ronald Buffie Per physician mixture to ns/20ml Nils Angel RN field viperslide 14:32:31 Heparin Bolus I.V. 3000 units Ronald Robert for v erified Nils Angel RN anticoagulation with dr wray 14:33:43 Nitroglycerin I.C. 200 mcg Ronald Cardenas for IC/IA Nils johnson 14:45:03 Versed I.V. 1 mg Ronald Robert for sedation Nils Angel RN 14:45:07 Versed I.V. 1 mg Ronald Robert for sedation Nils Angel RN 14:50:14 Versed I.V. 1 mg Ronald Robert for sedation Nils Angel RN 14:50:27 Fentanyl I.V. 50 mcg Ronald Robert for sedation Nils Angel RN 15:04:31 Fentanyl I.V. 50 mcg Ronald Robert for sedation Nils Angel RN 15:23:05 Plavix P.O. 75 mg Ronald Robert for Nils Angel RN antiplatelet therapy Procedure Log Time Note 13:10:31 Jakob Angel RN sent for patient. Start room use. 13:23:58 Informed consent obtained and on chart 13:24:04 Admit Source: Other 13:24:08 Arrival Date: 04/12/2016 2:23:00 PM 13:24:40 Lab Result : Creatinine 1.4 mg/dl 13:24:40 Lab Result : BUN 32 mg/dl 13:24:40 Lab Result : Hemoglobin 13.9 g/dl 13:25:03 Diagnostic Cath Status : Elective 13:25:37 Time tracking: Regular hours 13:25:41 Plan of Care:Hemodynamics will remain stable., Cardiac rhythm will remain stable., Comfort level will be maintained., Respiratory function will remain adequate., Patient/ family verbilizes understanding of procedure., Procedure tolerated without complication., Recovers from procedure without complications.. 13:33:51 Patient received from Pre/Post Procedure Room to CCL 2 Alert and oriented. Tansferred to table in Supine position. 13:33:52 Warm blankets applied, and keira hugger turned on for patient comfort. 13:33:53 Correct patient and procedure confirmed by team. 13:33:56 ECG and BP/O2 sat monitors applied to patient. 13:45:32 Baseline sample Acquired. 13:45:32 Vital chart was started 13:45:46 Rhythm: sinus rhythm 13:45:47 Full Disclosure recording started 13:46:08 Oxygen 2 l/min NC was given by Jakob Angel RN; used for procedure; 13:46:09 H&P Date Dictated: 04/14/2016 Within 30 days and on chart.. 13:46:11 Pre-procedure instructions explained to patient. 13:46:11 Pre-op teaching completed and patient verbalized understanding. 13:46:12 Family in waiting room. 13:46:14 Patient NPO since Midnight. 13:46:15 Lidocaine 2% 20ml vial added to field was given by Ronald Wray MD; for local anesthetic; 13:46:19 Is the patient allergic to Iodine/contrast media? No. 13:46:21 Heparin Flush Bag (1000units/500ml NS) 2 bags added to field was given by Ronald Wray MD; used for procedure; 13:46:21 Was the patient premedicated? No 13:46:24 Is patient on blood thinner?Yes 13:46:27 ACC The patient was administered the following blood thiners within the last 24 hours: ACCPlavix 13:46:30 0.9% NaCl 100 ml/hr I.V. was given by Jakob Angel RN; Per physician; 13:46:38 Patient diabetic? No. 13:46:41 Previous problem with sedation/anesthesia? No ? 13:46:43 Snore? Yes 13:46:44 Sleep apnea? Yes 13:46:45 Deviated septum? No 13:46:47 Opens mouth fully? Yes 13:46:48 Sticks out tongue? Yes 13:46:53 Airway obstruction? Yes copd 13:47:01 Dentures? Yes in tight 13:47:04 Pre procedure: right dorsailis pedis pulse 1+ Palpable, but thready & weak; easily obliterated 13:47:07 Patient pain scale 0/10 ?. 13:47:13 IV patent on arrival in left forearm with 0.9% NaCl at [facility]. 13:47:16 Lab results completed and on chart. 13:47:20 Right groin area was prepped with chlora-prep and draped in sterile fashion 13:47:21 Alarms reviewed by R. N. 13:47:21 Sharps counted by scrub and verified by R.N. 13:53:12 Terumo 7Fr Costa Sheath opened to sterile field. 13:53:28 VIPER .014 335 CM guide wire opened to sterile field. 13:53:29 Viperslide LUBRICANT opened to sterile field. 13:54:23 Use device set Femoral PCI 13:54:30 Acist Syringe opened to sterile field. 13:54:30 Acist Hand Control opened to sterile field. 13:54:31 Bag Decanter opened to sterile field. 13:54:32 Medline Cath Pack opened to sterile field. 13:54:32 Terumo 6Fr Costa Sheath opened to sterile field. 13:54:39 St Sushil 260cm J .035 wire opened to sterile field. 13:54:39 Merit BasixCompak Inflation Kit opened to sterile field. 13:54:40 Acist Manifold opened to sterile field. 13:54:42 Tegaderm 4 x 4 opened to sterile field. 13:55:34 5Fr J Tip Temporary Pacing Catheter opened to sterile field. 13:56:10 Lutz Whisper J 300cm 0.014 guide wire opened to sterile field. 13:58:01 Physician arrived 13:58:02 --------ALL STOP TIME OUT------ 13:58:02 Final Timeout: patient, procedure, and site verified with staff and physician. All members of the team are in agreement. 13:58:04 Right groin site verified by team. 13:58:07 Physical assessment completed. ASA score P 2 - A patient with mild systemic disease as per Ronald Wray MD. 13:58:10 Sedation plan: IV Moderate Sedation Versed, Fentanyl 13:58:13 Zero performed for pressure channel P1 13:58:20 Zero performed for pressure channel P1 13:58:40 Versed 1 mg I.V. was given by Jakob Angel RN; for sedation; 13:58:46 Fentanyl 50 mcg I.V. was given by Jakob Angel RN; for sedation; 14:00:45 Diamondback 360 1.25 Micro Atherectomy catheter opened to sterile field. 14:01:52 PCI Cath status Elective 14:04:12 Procedure started. 14:04:15 Local anesthetic to right femoral artery with Lidocaine 2% by Ronald Wray MD.INITIAL ACCESS ONLY 14:04:18 Versed 1 mg I.V. was given by Jakob Angel RN; for sedation; 14:04:22 Fentanyl 50 mcg I.V. was given by Jakob Angel RN; for sedation; 14:05:05 A 7 Fr Short sheath was inserted into the Right Femoral artery 14:05:28 Local anesthetic to left femoral vein with Lidocaine 2% by Ronald Wray MD.ADDITIONAL ACCESS 14:05:46 A 6 Fr Short sheath was inserted into the Right Femoral vein 14:06:44 Temporary pacer inserted 14:07:43 Temporary pacer turned on with the following settings: Rate 40, MA 5, Mode: Demand. 14:08:02 7 Fr ar 2 sh guide catheter was inserted over the wire 14:09:39 Heparin Bolus 5000 units I.V. was given by Jakob Angel RN; for anticoagulation; verified with dr wray 14::42 Versed 1 mg I.V. was given by Jakob Angel RN; for sedation; 14::46 Fentanyl 50 mcg I.V. was given by Jakob Angel RN; for sedation; 14:10:17 Medtronic Launcher 7Fr HS II SH guide catheter opened to sterile field. 14:10:40 Guide Catheter removed. unable to cannulate vessel. 14:10:42 Medtronic Launcher 7Fr HS II guide catheter opened to sterile field. 14:10:50 7 Fr hs 2 sh guide catheter was inserted over the wire 14:10:54 RCA angiography performed. 14:11:00 Injector settings: Ml/sec: 3, Volume: 6, 14:12:51 5Fr J Tip Temporary Pacing Catheter opened to sterile field. 14:12:53 Versed 1 mg I.V. was given by Jakob Angel RN; for sedation; 14:12:58 Fentanyl 50 mcg I.V. was given by Jakob Angel RN; for sedation; 14:13:11 whisper wire advanced. 14:14:50 The [place] Sci Craighead 3.5 X 15 balloon was advanced and then removed because of failure to cross lesion 14:15:12 VIPER .014 335 CM guide wire opened to sterile field. 14:16:31 Wire removed. 14:17:22 viper wire advanced. 14:20:18 Wire advanced across lesion. 14:20:50 Versed 1 mg I.V. was given by Jakob Angel RN; for sedation; 14:20:53 Fentanyl 50 mcg I.V. was given by Jakob Angel RN; for sedation; 14:21:04 The [place] Sci [place] 1.5 X 20 balloon was advanced and then removed because of failure to cross lesion 14:22:04 Diamondback solution initiated IA via Diamondback device per MD: 0.9% NS 1000ml, Viperslide 20ml, Verapamil 5mg, Nitroglycerin 5mg. 14:22:04 Diamondback solution initiated IA via Diamondback device per MD: 0.9% NS 1000ml, Viperslide 20ml, Verapamil 5mg, Nitroglycerin 5mg. 14:24:26 Versed 1 mg I.V. was given by Ronald Wray MD; for sedation; 14::29 Fentanyl 50 mcg I.V. was given by Ronald Wray MD; for sedation; 14:24:42 diamondback mixture 1000 ml ns/20ml viperslide added to field was given by Jakob Angel RN; Per physician; 14:29:39 multiple runs made with diamondback to Mid RCA 14:32:31 Heparin Bolus 3000 units I.V. was given by Jakob Angel RN; for anticoagulation; verified with dr wray 14:33:43 Nitroglycerin IC/IA 200 mcg I.C. was given by Ronald Wray MD; for vasodilation; 14:41:34 diamondback removed 14:44:25 viper wire exchanged for choice pt extra support 14:45:03 Versed 1 mg I.V. was given by Jakob Angel RN; for sedation; 14:45:07 Versed 1 mg I.V. was given by Jakob Angel RN; for sedation; 14:45:24 Inflation number: 1 A [place] Sci Craighead 3.5 X 15 balloon was prepped and advanced across the Mid RCA, then inflated to 13 PAULETTE for 0:10 (min:sec). 14:45:40 Inflation number: 2 The [place] Sci Craighead 3.5 X 15 balloon was reinflated across the Mid RCA, to 13 PAULETTE for 0:10 (min:sec). 14:45:51 Inflation number: 3 The [place] Sci Craighead 3.5 X 15 balloon was reinflated across the Mid RCA, to 13 PAULETTE for 0:10 (min:sec). 14:46:15 Inflation number: 4 The [place] Sci Craighead 3.5 X 15 balloon was reinflated across the Mid RCA, to 17 PAULETTE for 0:10 (min:sec). 14:47:15 Balloon removed over the wire. 14:50:14 Versed 1 mg I.V. was given by Jakob Angel RN; for sedation; 14:50:27 Fentanyl 50 mcg I.V. was given by Jakob Angel RN; for sedation; 14:50:31 Inflation Number: 1 A Medtronic Integrity 3.5 X 26 stent was prepped and advanced across the Prox RCA. The stent was deployed at 23 PAULETTE for 0:10 (min:sec). 14:51:08 Stent catheter was removed intact over wire. 14:52:40 Inflation number: 5 A [place] Sci [place] 4.0 X 20 balloon was prepped and advanced across the Mid RCA, then inflated to 15 PAULETTE for 0:10 (min:sec). 14:53:05 Inflation number: 6 The [place] Sci Craighead 4.0 X 20 balloon was reinflated across the Mid RCA, to 15 PAULETTE for 0:10 (min:sec). 14:53:32 Inflation number: 7 The [place] Sci Craighead 4.0 X 20 balloon was reinflated across the Mid RCA, to 15 PAULETTE for 0:10 (min:sec). 14:53:48 Inflation number: 8 The [place] Sci Craighead 4.0 X 20 balloon was reinflated across the Mid RCA, to 17 PAULETTE for 0:10 (min:sec). 14:54:19 Balloon removed over the wire. 14:55:30 Inflation Number: 9 A Medtronic Integrity 3.5 X 22 stent was prepped and advanced across the Mid RCA. The stent was deployed at 21 PAULETTE for 0:10 (min:sec). 14:55:59 Stent catheter was removed intact over wire. 14:58:14 The Medtronic Integrity 3.5 X 22 stent was advanced then removed because of failure to cross lesion 15:00:04 wire exchanged for choice pt extra support 15:00:13 Washburn Sci Choice PT Extra Support J 300cm .014 gu opened to sterile field. 15:02:08 Balloon removed over the wire. 15:02:23 Inflation Number: 10 A Medtronic Integrity 3.5 X 22 stent was prepped and advanced across the Mid RCA. The stent was deployed at 23 PAULETTE for 0:10 (min:sec). 15:02:29 Inflation number: 11 The stent balloon was then re-inflated across the Mid RCA to 23 PAULETTE for 0:10 (min:sec). 15:03:18 Stent catheter was removed intact over wire. 15:04:21 Inflation Number: 12 A Medtronic Integrity 3.5 X 22 stent was prepped and advanced across the Mid RCA. The stent was deployed at 23 PAULETTE for 0:10 (min:sec). 15:04:31 Fentanyl 50 mcg I.V. was given by Jakob Angel RN; for sedation; 15:05:25 Stent catheter was removed intact over wire. 15:05:26 Wire removed. 15:05:27 Guide catheter removed. 15:05:40 Cordis 7Fr Exoseal opened to sterile field. 15:05:59 Sheath removed intact; hemostasis achieved with Exoseal to the Right Femoral artery. 15:06:28 Sheath removed intact; hemostasis achieved with Manual Compression to the Right Femoral vein. 15:06:32 Procedure ended.(Physican Out) 15:08:25 Fluoroscopy time 31.00 minutes. 15:08:37 Flurop Dose total: 3651 15:08:37 Fluoroscopy dose: 3651 mGy 15:08:52 Contrast amount:Isovue 370 194ml. 15:08:54 Sharps counted by scrub and verified by R.N. 15:08:55 Insertion/operative site no bleeding no hematoma. 15:08:58 Post-op/insertion site Right Femoral artery dressed using a 4 x 4 and Tegaderm. 15:09:01 Post right femoral artery:stable 15:09:03 Post Procedure Pulses reassessed and unchanged 15:09:19 Post procedure rhythm: unchanged. 15:09:37 Estimated blood loss: 5 ml 15:09:39 Post procedure instruction explained to patient.Patient verbalizes understanding. 15:09:39 Patient needs reinforcement of post procedure teaching. 15:11:16 Procedure type changed to Cath procedure, Diagnostic procedure, PCI procedure, Coronary Atherectomy, Atherectomy w/Stent Coronary Initial, Miscellaneous Procedures, Moderate Sedation up to 45 minutes 15:13:52 Medtronic Launcher 7Fr AR 2.0 SH guide catheter opened to sterile field. 15:14:06 Procedure and supply charges have been captured, reviewed, submitted and are correct. 15:14:13 Procedure Complication : No complications 15:14:16 Vital chart was stopped 15:14:16 See physician's report for complete and final results. 15:15:20 Report given to Pre/Post Procedure Room. 15:15:23 Patient transfered to Pre/Post Procedure Room with Stretcher. 15:15:25 Procedure ended. 15:15:25 Full Disclosure recording stopped 15:15:33 ACC-PCI Only Patient was given prescriptions, or instructed by Ronald Wray MD to start/continue the following medications upon discharge: Plavix 15:15:35 End room use (Document Last) 15:23:05 Plavix 75 mg P.O. was given by Jakob Angel RN; for antiplatelet therapy; Intervention Summary Intervention Notes Time ActionType Lesion and Equipment Action# Pressure Duration Attributes Used 14:14:50 Discard Washburn Balloon Sci Craighead 3.5 X 15 balloon 14:21:04 Discard [place] Balloon Sci [place] 1.5 X 20 balloon 14:45:24 Inflate Mid RCA Washburn 1 13 00:10 balloon Sci Craighead 3.5 X 15 balloon 14:45:40 Reinflate Mid RCA Washburn 2 13 00:10 balloon Sci Craighead 3.5 X 15 balloon 14:45:51 Reinflate Mid RCA Washburn 3 13 00:10 balloon Sci Craighead 3.5 X 15 balloon 14:46:15 Reinflate Mid RCA Wash[place] 4 17 00:10 balloon Sci Craighead 3.5 X 15 balloon 14:50:31 Place stent Prox RCA Medtronic 1 23 00:10 Integrity 3.5 X 26 stent 14:52:40 Inflate Mid RCA Wash[place] 5 15 00:10 balloon Sci [place]head 4.0 X 20 balloon 14:53:05 Reinflate Mid RCA Wash[place] 6 15 00:10 balloon Sci [place]head 4.0 X 20 balloon 14:53:32 Reinflate Mid RCA [place] 7 15 00:10 balloon Sci [place] 4.0 X 20 balloon 14:53:48 Reinflate Mid RCA [place] 8 17 00:10 balloon Sci [place] 4.0 X 20 balloon 14:55:30 Place stent Mid RCA Medtronic 9 21 00:10 Integrity 3.5 X 22 stent 14:58:14 Discard Medtronic Stent Integrity 3.5 X 22 stent 15:02:23 Place stent Mid RCA Medtronic 10 23 00:10 Integrity 3.5 X 22 stent 15:02:29 Reinflate Mid RCA Medtronic 11 23 00:10 stent Integrity balloon 3.5 X 22 stent 15:04:21 Place stent Mid RCA Medtronic 12 23 00:10 Integrity 3.5 X 22 stent Device Usage Item Name Manufacture Quantity Catalog Number [facility] Part Current M inimal Lot# / Charge Number Stock Stock Serial# Code Terumo 7Fr Terumo 1 [id number] 161044 205203 5 Costa Sheath VIPER .014 Cardiovascular 2 [id number] 830836 5 335 CM systems guide wire Viperslide Cardiovascular 1 VPR-SLD 311018 352168 5 LUBRICANT systems Acist ist Medical 1 15251 331875 686287 504968 2 0 Syringe Systems Inc Acist Hand Acist Medical 1 57147 910911 855811 067150 5 Control Systems Inc Bag Microtek 1 2002S 981807 76237 646179 5 DemystData Inc. Medline Cardinal 1 [id number] 371957 70765 883212 5 Cath Pack TempoIQ Terumo 6Fr Terumo 1 [id number] 447271 231597 956143 [address] St Sushil 1 [id number] 650645 168359 059912 3 0 260cm J .035 wire [facility] 1 [id number] 070969 997994 599513 1 5 BasixCompak Inflation Kit [facility] 1 96650 105600 200985 994643 5 Manifold Systems Inc Tegaderm 4 3M 1 1626W 857418 364810 892886 5 x 4 5Fr J Tip Persaud 2 [id number] 394222 75817 115794 2 Temporary Lifesciences Pacing Catheter Lutz Lutz 1 [id number] 028597 841060 298571 5 Whisper J Vascular 300cm 0.014 guide wire Diamondback Cardiovascular 1 [id number] 056554 867199 766804 5 360 1.25 systems Micro Atherectomy catheter Medtronic Medtronic 1 [id number] 671219 760501 088805 0 Launcher 7Fr HS II SH guide catheter Medtronic Medtronic 1 [id number] 956121 544754 247906 0 Launcher 7Fr HS II guide catheter Wash[place] Sci Washburn 1 [id number] 095806 505443 217415 1 [id number] Craighead Scientific 3.5 X 15 balloon Wash[place] Sci Washburn 1 [id number] 642839 730749 052802 1 [employer] Scientific 1.5 X 20 balloon Medtronic Medtronic 1 [id number] 937710 738423 176705 5 [id number] Integrity 3.5 X 26 stent Wash[place] Sci Washburn 1 [id number] 690172 460629 132510 1 [employer] [facility] 4.0 X 20 balloon Medtronic Medtronic 3 [id number] 575433 664289 2 [id number] Integrity [id number] 3.5 X 22 [id number] stent Wash[place] Sci Washburn 1 [id number] 458631 609379 786499 5 Choice PT Scientific Extra Support J 300cm .014 gu Cordis 7Fr Cardinal 1 EX700 017886 640996 696131 5 [facility] Medtronic Medtronic 1 [id number] 642982 645293 478629 0 Launcher 7Fr AR 2.0 SH guide catheter Signature Audit [place] Stage Time Signature Unsigned Intra-Procedure 04/14/2016 Marysol HOLT(Magali) 3:23:47 PM Signatures Monitor : Marysol Power RT Signature : Date : Time : [facility] [address], [place] [address]
[~2016-04-11 21:24] MED LIST changes: +GLUCOPHAGE500 MG PO; +GLUCOTROL 5 MG T5 MG PO
[2016-04-11 22:32] LABS: BASOPHILS 0.3 % (0.0-2.0); EOSINOPHILS 3.3 % (0-7); HEMATOCRIT 38.5 % (42.0-54.0); HEMOGLOBIN 12.5 g/dL (13.5-17.5); IMMATURE GRANULOCYTES 0.3 % (0-5); LYMPHOCYTES 17.2 % (15-50); MCH 29.2 pg (26.0-34.0); MCHC 32.5 g/dL (31.0-37.0); MEAN PLATELET VOLUME 10.8 fL (7.4-10.4); MONOCYTES 8.5 % (2-11); NEUTROPHILS 70.4 % (40-80); PLATELET COUNT 147 10x3/uL (130-400); RBC 4.28 10x6/uL (4.20-6.10); RDW 12.8 % (11.5-14.5); WBC 7.2 10x3/uL (4.8-10.8)
[2016-04-11 22:52] LABS: ALBUMIN 3.3 g/dL (3.4-5.0); ANION GAP 11.1 mmol/L (8-16); BILIRUBIN - TOTAL 0.52 mg/dL (0.2-1.3); CALCIUM 8.8 mg/dL (8.5-10.1); CARBON DIOXIDE 31.3 mmol/L (21.0-32.0); CREATININE - SERUM 1.2 mg/dL (0.6-1.3); POTASSIUM - SERUM 4.4 mmol/L (3.5-5.1); PROTEIN - SERUM 7.1 g/dL (6.4-8.2)
[2016-04-12 00:15] LABS: TROPONIN-I 0.067 ng/mL (0.000-0.060)
[2016-04-12] MEDS ORDERED: LANTUS INSULIN10 ML SC (01:52)
[2016-04-12 02:01] VITALS: BP 206/107; BMI 34.7
[2016-04-12 04:00] VITALS: BP 187/98
--- NOTE | 2016-04-12 04:44 | NUR ---
PT RECEIVED VIA STRETCHER FROM BREE FERRERA IN THE ER @ APPROX 01:30 THIS AM. PT IS AWAKE, ALERT, ORIENTED, PLEASANT, CAN ANSWER MOST OF HIS MEDICATION QUESTIONS, DENIES ANY ACUTE DISTRESS OR NEEDS AT THIS TIME. PT WAS EDUCATED ON HOW AND WHEN TO USE HIS CALL, PT DENIES THE NEED FOR A URINAL OR BEDSIDE COMMODE AT THIS TIME. TELEMETRY PLACED, PT UP AD GARIMA. CONTINUE TO MONITOR CLOSELY.
--- NOTE | 2016-04-12 06:25 | NUR ---
PT AWAKE, ALERT, ORIENTED, RECEIVING RESP TX AT THIS TIME. DENIES ANY NEEDS. CONTINUE TO MONITOR CLOSELY.
--- NOTE | 2016-04-12 07:43 | NUR ---
AM ROUNDING DONE WITH PATIENT ASKING FOR ORANGE JUICE, GIVEN. LEFT AC SEEN WITH SALINE LOCK. ON 3L PER NC. ON HEART MONITOR SHOWING SR, HR 89. WILL CONTINUE TO MONIOTOR.
[2016-04-12 08:49] VITALS: BP 175/84
--- NOTE | 2016-04-12 10:03 | NUR ---
PATIENT IS UP AD GARIMA TO RESTROOM TO VOID, ON LASIX. PATIENT HAS A VERY LARGE RIGHT HERNIA.
[2016-04-12 12:45] VITALS: BP 201/96
[2016-04-12 13:43] LABS: CKMB 94.4 U/L (0.0-3.6); CREATINE KINASE 87 UL (21-232); DIGOXIN 0.69 ng/mL (0.90-2.00)
[2016-04-12 14:09] VITALS: Ht 188 cm; Wt 42.7 kg
--- NOTE | 2016-04-12 15:20 | NUR ---
PATIENT TO REFUSE TO WEAR SCD'S.
[2016-04-12 15:44] VITALS: BP 181/90
[2016-04-12 17:50] LABS: CREATINE KINASE 88 UL (21-232); TROPONIN-I 0.038 ng/mL (0.000-0.060)
--- NOTE | 2016-04-12 18:39 | NUR ---
RECEIVING UPDRAFT TREATMENT AT THIS TIME. WILL CONTINUE TO MONITOR.
--- NOTE | 2016-04-12 19:50 | NUR ---
PT LYING IN BED WATCHING TV, ASSESSMENT COMPLETED, NO ACUTE DISTRESS NOTED, DENIES NEEDS, SR'S UP, CL IN REACH
[2016-04-12 20:00] VITALS: BP 134/86
--- NOTE | 2016-04-12 20:38 | NUR ---
MEDS GIVEN PER MAR, RADHA WELL, NO NEEDS NOTED FALL PRECAUTIONS IN PLACE, CL IN REACH
--- NOTE | 2016-04-12 23:27 | NUR ---
RESTING WITH EYES CLOSED, NO DISTRESS NOTED, FALL PRECATIONS IN PLACE, CL IN REACH
[2016-04-13] VITALS: BP 126/92
[2016-04-13 00:02] LABS: CKMB 214.9 U/L (0.0-3.6); CREATINE KINASE 91 UL (21-232); TROPONIN-I 0.041 ng/mL (0.000-0.060)
--- NOTE | 2016-04-13 01:11 | NUR ---
RESTING WITH EYES CLOSED, SNORING RESP, NO DISTRES NOTED, SR'S UP , CL IN REACH
[2016-04-13 04:00] VITALS: BP 122/65
--- NOTE | 2016-04-13 04:00 | NUR ---
MEDS GIVEN PER MAR, RADHA WELL, DENIES NEEDS, CL IN REACH
[2016-04-13 05:47] LABS: BASOPHILS 0.2 % (0.0-2.0); EOSINOPHILS 2.3 % (0-7); HEMATOCRIT 42.7 % (42.0-54.0); HEMOGLOBIN 13.9 g/dL (13.5-17.5); IMMATURE GRANULOCYTES 0.1 % (0-5); LYMPHOCYTES 17.3 % (15-50); MCH 29.3 pg (26.0-34.0); MCHC 32.6 g/dL (31.0-37.0); MCV 89.9 fL (80.0-100.0); MEAN PLATELET VOLUME 11.1 fL (7.4-10.4); NEUTROPHILS 70.1 % (40-80); PLATELET COUNT 169 10x3/uL (130-400); RBC 4.75 10x6/uL (4.20-6.10); RDW 12.7 % (11.5-14.5)
[2016-04-13 06:13] LABS: ANION GAP 12.9 mmol/L (8-16); CALCIUM 8.8 mg/dL (8.5-10.1); CARBON DIOXIDE 32.5 mmol/L (21.0-32.0); CREATININE - SERUM 1.4 mg/dL (0.6-1.3)
[2016-04-13 06:15] LABS: POTASSIUM - SERUM 3.4 mmol/L (3.5-5.1)
--- NOTE | 2016-04-13 06:28 | NUR ---
40 MEQ KCL GIVEN PER E. PROTOCOL FOR LEVEL OF 3.4 ALONG WITH ROUTINE MED, RADHA WELL, DENIES NEEDS, CL IN REACH
[2016-04-13 06:31] LABS: WBC 9.1 10x3/uL (4.8-10.8)
--- NOTE | 2016-04-13 07:38 | NUR ---
AM ROUNDING MADE. ON 3L PER NC. ON HEART MONITOR SHOWING UCAF TO CAF, HR 89-113. WILL BE MADE NPO PAST BREAKFAST FOR HEART CATH. LARGE RIGHT HERNIA SEEN. LEFT AC SALINE LOCK. WILL CONTINUE TO MONITOR.
[2016-04-13 07:49] VITALS: BP 129/89
--- NOTE | 2016-04-13 08:49 | NUR ---
AM MEDS GIVEN WITH WATER, MADE NPO NOW.
--- NOTE | 2016-04-13 11:54 | NUR ---
TO WRAPPER LEAF INSPECTOR VIA BED.
--- NOTE | 2016-04-13 12:06 | NUR ---
FIRST TIMED EKG DONE ORDERED. FSBS IS 271, COVERED WITH 10 U INSULIN ORDERED. WILL CONTINUE TO MONITOR.
--- NOTE | 2016-04-13 12:49 | NUR ---
1140-RETURNS FROM PACKAGING LINE ATTENDANT RECOVERY WITH DRESSING TO LEFT GROIN, DRY AND INTACT. AREA SOFT TO PALPATE, PPP AND STRONG. DENIES NEEDS, TO LAY FLAT X 4 HOURS.
--- NOTE | 2016-04-13 13:47 | NUR ---
Nutrition follow-up: Diet: AHA PO intake 100% of meals Labs reviewed +BM Wt: 260# RDN following.
--- NOTE | 2016-04-13 15:05 | NUR ---
Patient Name: AMBROSE PADILLA Admission Status: ER Accout number: [id number] Admission Date: 04-12-2016 : 1940 Admission Diagnosis: Attending: GIUSEPPE Current LOS: 1 Anticipated DC Date: Planned Disposition: Home with Home Health Primary Insurance: MEDICARE A & B Discharge Planning Comments: * Is the patient Alert and Oriented? Yes 0 * How many steps to enter\exit or inside your home? ELEVATOR 0 * PCP DR. MCCARTNEY 0 * Pharmacy [facility] [address] * Preadmission Environment Home Alone 0 * ADLs Independent 0 * Equipment Cane Other Oxygen Walker Wheelchair 0 * Other Equipment POWER WHEELCHAIR HOME AND PORTABLE OXYGEN [place] [facility] PATIENT - MEDICAL EQUIPMENT PROVIDER 0 * List name and contact numbers for known caregivers / representatives who currently or will assist patient after discharge: JHONATHAN PADILLA, SON, MAGEN PADILLA, BROTHER, BETH SOMMERS, DTR, 0 * Community resources currently utilized Home Health 0 * Please name any agencies selected above. [facility], 0 * Additional services required to return to the preadmission environment? No 0 * Can the patient safely return to the preadmission environment? Yes 0 * Has this patient been hospitalized within the prior 30 days at any hospital? No 0 CM MET WITH PT IN ROOM TO DISCUSS DISCHARGE PLANNING AND NEEDS. PT REPORTS LIVING AT HOME INDEPENDENTLY AND ALONE AT THE [facility]. PT REPORTS HAVING ALL NEEDED MEDICAL EQUIPMENT PROVIDED BY [place] PATIENT. PT HAS [facility] FOR NURSING, THE PHYSICAL THERAPY RECENTLY COMPLETED. M DISCUSSED AVAILABILITY OF HOME HEALTH, REHAB SERVICES AND MEDICAL EQUIPMENT. PT DENIES NEED FOR REHAB SERVICES AND IS UNSURE IF HE WILL NEED HOME HEALTH PHYSICAL THERAPY AFTER HOSPITALIZATION BUT DOES WANT HIS HOME HEALTH RESUMED AT DISCHARGE.PT DENIES OTHER DISCHARGE NEEDS, REPORTS HIS DAUGHTER OR SON WILL PICK HIM UP FOR DISCHARGE HOME. TO RESUME HOME HEALTH AT DISCHARGE, NOTIFY [facility] AT [phone], FAX DISCHARGE INFORMATION TO [facility] AT [phone]. CM TO FOLLOW AND ASSIST IF NEEDED. Sample Tester Grinder: Anthony Mc
--- NOTE | 2016-04-13 15:52 | NUR ---
PATIENT SAT AT 30 DEGREES POST LEFT HEART CATH. LEFT GROIN DRESSING STILL DRY AND INTACT. PPP AND STRONG. WILL CONTINUE TO MONITOR.
[2016-04-13 16:21] VITALS: BP 143/82
--- NOTE | 2016-04-13 18:25 | NUR ---
LEFT GROIN DRESSING STILL INTACT. WILL CONTINUE TO MONIOTR.
[2016-04-13 20:00] VITALS: BP 162/73
--- NOTE | 2016-04-13 22:43 | NUR ---
PT IS ALERT AND ORIENTED, ABLE TO VERBALIZE NEEDS. HE IS ABLE TO GET UP AND USE THE URINAL AT THE BEDISE. O2 IS AT 2 3 LITERS AND THE INCISION SITE FOR THE LEFT GROIN LOOKS GOOD. THE DRESSING IS INTACT. THERE IS TELEMETRY IN PLACE WHICH SHOWS CONTROLED AND UNCONTROLED A-FIB. THE BED IS LOW, RAILS UP X'S 2 WITH THE CALL LIGHT AT HAND.
[2016-04-14] VITALS: BP 143/80
[2016-04-14 04:00] VITALS: BP 147/70
--- NOTE | 2016-04-14 04:14 | NUR ---
PT HAS BEEN NPO SINCE MIDNIGHT FOR A ORDERED HEART CATH. HE HAD ONE BUT THE SURGERY FOR FOR A SECOND ONE WHICH IS TO BE DONE TODAY. THE 3RD ONE IS OT PATIENT AND WILL BE DONE BY OUTPATIENT.
[2016-04-14 06:53] LABS: BASOPHILS 0.2 % (0.0-2.0); EOSINOPHILS 3.1 % (0-7); HEMATOCRIT 42.2 % (42.0-54.0); HEMOGLOBIN 13.7 g/dL (13.5-17.5); IMMATURE GRANULOCYTES 0.2 % (0-5); LYMPHOCYTES 15.9 % (15-50); MCH 29.8 pg (26.0-34.0); MCHC 32.5 g/dL (31.0-37.0); MEAN PLATELET VOLUME 10.7 fL (7.4-10.4); MONOCYTES 9.6 % (2-11); PLATELET COUNT 198 10x3/uL (130-400); RBC 4.59 10x6/uL (4.20-6.10)
[2016-04-14 06:56] LABS: MCV 91.9 fL (80.0-100.0); WBC 11.9 10x3/uL (4.8-10.8)
[2016-04-14 07:01] LABS: ANION GAP 13.5 mmol/L (8-16); CARBON DIOXIDE 33.3 mmol/L (21.0-32.0); POTASSIUM - SERUM 3.8 mmol/L (3.5-5.1)
[2016-04-14 07:06] LABS: CREATININE - SERUM 1.9 mg/dL (0.6-1.3)
[2016-04-14 08:13] VITALS: BP 148/75
--- NOTE | 2016-04-14 09:24 | NUR ---
PT PREOPPED FOR ARCHERY INSTRUCTOR AND WAITING FOR CATH TEAM TO COME AND TAKE PT PT LAYING IN BED WITH FAMILY AT BEDSIDE NO DISTRESS OBSERVED WILL MONITOR
--- NOTE | 2016-04-14 10:37 | NUR ---
PT ASSESMENT COMPLETED NO DISTRESS OBSERVED CALL LIGHT IN REACHS RX2 BED LOW AND LOCKED RESPERATIONS EVEN AND UNLBOARED. PT VERY CONCERENED REGARDING METFORMIN BETH CORONEL SPOKE WITH PT AND EXPLAINED RATIONALE PER BETH PT VERBALIZED UNDERSTANDING, PT AMBULATORY WITH NO ASSISTANCE NEEDED WILL MONITOR
--- NOTE | 2016-04-14 10:39 | NUR ---
PT WAITING OF CABINET PROFESSIONAL TO ARRIVE TO TAKE PT TO HAVE STENT PLACED NO DISTRESS OBSERVED PT FAMILY IN ROOM AT SIDE WILL MONITOR
[2016-04-14 11:52] VITALS: BP 165/96
--- NOTE | 2016-04-14 14:05 | NUR ---
Nutrition Follow Up: Chart reviewed. Pt is eating 92% meal avg on an AHA diet. Wt gain of 12# since admit. ? +BM 04/13/16. I>O. Labs noted - BUN, Cr, Glucose elevated. Meds noted including Lasix, Glipizide, Metformin. Pt with good po intake at this time. Rec continue current diet. Will continue to provide selective menus and honor food preferences. RD following.
--- NOTE | 2016-04-14 15:41 | NUR ---
PT ARRIVED BACK FROM [facility] FAMILY IN ROOM AT BEDSIDE NO DISTRESS OBSERVED PT TO LAY FLAT UNTIL 1930 THIS EVENING NO S/S OF HEMOTOMA TO LEFT GROIN CALL LIGHT IN REACH SR X2 BED LOW AND LOCKED WILL MONITOR
--- NOTE | 2016-04-14 15:42 | NUR ---
PERIPHEAL PULSES CHECKED AND PRESENT AND STRONG FEET WARM TO TOUCH AND PT VERBALIZED UNDERSTANDING LAYING FLAT TELEMETRY PLACED ON PT AND READING SR AT THIS TIME
--- NOTE | 2016-04-14 16:12 | NUR ---
Patient Name: AMBROSE PADILLA Encounter No: [id number] : 1940 Primary Insurance: MEDICARE A & B Anticipated DC Date: Planned Disposition: Home with Home Health External Planned Provider: [facility] DCP follow-up note: CM MET WITH PT AND FAMILY IN ROOM TO DISCUSS DISCHAGE PLANNING AND NEEDS. PT CONTINUES TO REPORT PLAN TO DISCHARGE HOME WITH [facility] OF [facility], FAMILY TO TRANSPORT HOME. IMPORTANT MESSAGE FROM MEDICARE PROVIDED AND EXPLAINED. TO RESUME HOME HEALTH AT DISCHARGE, NOTIFY [facility] AT [phone], FAX DISCHARGE INFORMATION TO [facility] AT [phone]. CM TO FOLLOW AND ASSIST IF NEEDED. Harvest Worker Field Crop: Anthony Mc
--- NOTE | 2016-04-14 19:42 | NUR ---
RECEIVED REPORT, R,GROIN- DRESSING-CDI, L, [id number], VISITING WITH FAMILY, [id number], [id number], BED IS LOW, SRX2, CALL LIGHT IN REACH, WILL CONTINUE TO MONITOR
[2016-04-14 20:55] VITALS: BP 187/87
--- NOTE | 2016-04-14 22:34 | NUR ---
PT LAYING IN BED NO DISTRESS OBSERVED CALL LIGHT IN REACH NO HEMOTOMA OBSERVED NO BLEEDING WILL MONITOR
[2016-04-15 00:11] VITALS: BP 173/81
--- NOTE | 2016-04-15 02:39 | NUR ---
ASSESSMENT COMPLETE, DENIES ANY NEEDS, CALL LIGHT IN REACH, WILL CONTINUE TO MONITOR
[2016-04-15 04:49] VITALS: BP 172/73
[2016-04-15 06:38] LABS: BASOPHILS 0.1 % (0.0-2.0); HEMATOCRIT 36.6 % (42.0-54.0); HEMOGLOBIN 11.5 g/dL (13.5-17.5); IMMATURE GRANULOCYTES 0.1 % (0-5); LYMPHOCYTES 9.6 % (15-50); MCHC 31.4 g/dL (31.0-37.0); MCV 92.2 fL (80.0-100.0); MEAN PLATELET VOLUME 10.9 fL (7.4-10.4); MONOCYTES 9.7 % (2-11); NEUTROPHILS 78.5 % (40-80); RBC 3.97 10x6/uL (4.20-6.10); RDW 12.9 % (11.5-14.5)
[2016-04-15 06:41] LABS: PLATELET COUNT 139 10x3/uL (130-400); WBC 8.5 10x3/uL (4.8-10.8)
[2016-04-15 07:11] LABS: ANION GAP 12.6 mmol/L (8-16); CALCIUM 8.5 mg/dL (8.5-10.1); CARBON DIOXIDE 30.3 mmol/L (21.0-32.0); CREATININE - SERUM 1.7 mg/dL (0.6-1.3); POTASSIUM - SERUM 3.9 mmol/L (3.5-5.1)
[2016-04-15 08:01] VITALS: BP 140/70
--- NOTE | 2016-04-15 09:40 | NUR ---
PT ASSESSMENT COMPLETED PT LAYIN AZUL BED NO DISTRESS OBSERVED BED ALARM ON AND WORKING AND EXPLAINED OT PT PT VERBALIZED UNDERSTANDING. RIGHT AND LEFT GROIN AREA NO HEMOTOMA BRUSING OR BLEEDING OBSERVED TELEMETRY READING 86 SR AT THIS TIME WILL MONITOR
--- NOTE | 2016-04-15 11:56 | NUR ---
DR OLGUIN AND DR MOSS ROUNDED ON PT AND MIRIAMAY FOR DC HOME RX GIVEN TO PT BY DR BOWIE
[2016-04-15 12:02] VITALS: BP 159/80
[2016-04-15] MEDS ORDERED: HYDROCODON-ACE1 EAC7 PO (12:09)
--- NOTE | 2016-04-15 12:40 | NUR ---
PT DISCHARGED HOME DISCHARGE INSTRUCTIONS REVIEWED AND PT VERBALIZED UNDERSTANDING NO DISTRESS OBSERVED SON IN ROOM TO ESCORT PT HOME IVP DC'D AND CATH INTACT
--- NOTE | 2016-04-15 16:22 | NUR ---
Late Entry Patient discharged to home w/ [facility]. TC to [place] and spoke with on-call nurse. Faxed discharge instructions and discharge medication list. Faxed clinical update.
--- NOTE | 2016-04-24 10:08 | OP ---
PATIENT NAME: AMBROSE PADILLA MEDICAL RECORD: [id number] :[birth year] LOCATION:D.M2 D.2139 ADMISSION DATE:04/12/16 SURGEON: NARINDER SOUZA MD DATE OF OPERATION: 04/14/2016 PROCEDURES: 1. Rotational atherectomy, RCA. 2. PTCA stent, RCA. 3. Selective coronary angiography. INDICATIONS: Angina and coronary artery disease. PROCEDURE IN DETAIL: After informed consent was obtained and after a detailed explanation of risks, benefits as well as alternative therapies, the patient elected to proceed with angiogram and angioplasty. The right femoral area was prepped and draped in normal sterile fashion. The right femoral artery was cannulated via modified Seldinger technique with placement of 6-Bulgarian sheath. All catheters exchanged through this sheath. FINDINGS: The temporary pacemaker was placed secondary to bradycardia during the procedure. The right coronary has multiple areas of subtotal stenosis. This was addressed with a ____ Diamondback andreas. Multiple andreas runs were made. This was then extended going from distal to proximal, 3.5 x 22, 3.5 x 22, 3.5 x 22, 4 0. x 26, all Integrity stents. Result was 0% residual stenosis. OVERALL IMPRESSION: Successful percutaneous transluminal coronary angioplasty stent of the right coronary artery going from multiple areas of heavy calcified subtotal stenosis to 0% residual stenosis. TRANSINT:[id number] Voice Confirmation ID: [id number] DOCUMENT ID: [id number] NARINDER SOUZA MD at 1008 CC: [id number] DICTATION DATE: 04/14/16 1517 BATHING SUIT MAKER: 04/14/162058 DIS IN 04/15/16 [place] [id number]
--- NOTE | 2016-04-24 10:08 | OP ---
PATIENT NAME: AMBROSE PADILLA MEDICAL RECORD: [id number] :[birth year] LOCATION:D.M2 D.2139 ADMISSION DATE:04/12/16 SURGEON: NARINDER SOUZA MD DATE OF OPERATION: 04/13/2016 PROCEDURES: 1. Aortofemoral runoff. 2. Abdominal aortography. INDICATIONS: Claudication and peripheral vascular disease. PROCEDURE IN DETAIL: After informed consent was obtained and after detailed explanation of risks, benefits as well as alternative therapies, the patient elected to proceed with angiogram and aortofemoral runoff. The right femoral area was prepped and draped in normal sterile fashion. Right femoral artery was cannulated via modified Seldinger technique with placement of 6-German sheath. All catheters exchanged through this sheath. FINDINGS: Abdominal aortography was performed. The catheter was pulled down for aortofemoral runoff. Abdominal aortography reveals no significant abdominal aortic disease. No dissection or aneurysm formation. No renal artery stenosis. RIGHT LE. Iliac: The common internal and external iliacs are moderately calcified, moderately tortuous, but no significant flow-limiting disease. 2. Femoral system: The common superficial and deep femoral have moderate irregularities, but no flow-limiting stenosis. 3. Popliteal and infrapopliteal vessels: The popliteal is patent. Anterior tibial and posterior tibial were totally occluded. Peroneal is patent, although diffusely diseased, with single-vessel runoff to the foot. LEFT LE. Iliac: The common internal and external iliacs are moderately calcified, moderately tortuous, but no significant flow-limiting disease. 2. Femoral system: The common superficial and deep femoral have moderate irregularities, but no flow-limiting stenosis. 3. Popliteal and infrapopliteal vessels: The popliteal is patent. Anterior tibial and posterior tibial were totally occluded. Peroneal is patent, although diffusely diseased, with single-vessel runoff to the foot. OVERALL IMPRESSION: Infrapopliteal disease bilaterally, diffuse disease with one-vessel runoff to the foot through the peroneal. Continue medical management of the peripheral vascular disease and peripheral risk factors. TRANSINT:[id number] Voice Confirmation ID: [id number] DOCUMENT ID: [id number] NARINDER SOUZA MD at 1008 CC: [id number] DICTATION DATE: 04/13/16 1228 PIGMENT MIXER: 04/13/162012 DIS IN 04/15/16 [facility] [address] [place] [address]
--- NOTE | 2016-04-24 10:08 | EC ---
PATIENT:AMBROSE PADILLA DATE OF SERVICE: 04/12/16 SEX: M MEDICAL RECORD: [id number] DATE OF : [birth year] LOCATION:D.M2 D.213 AGE OF PATIENT: 75 ADMISSION DATE: 04/12/16 REFERRING PHYSICIAN: INTERPRETING PHYSICIAN: NARINDER WRAY MD ECHOCARDIOGRAM REPORT ECHO CHARGES 4 ECHO COMPLETE CLINICAL DIAGNOSIS: DYSPNEA ECHOCARDIOGRAPHIC MEASUREMENTS (adult normal given) AC root (d.<3.7cm) 4.1 LV Septum d (<1.2 cm> 1.7 Valve Excursion 1.2 LV Septum (systole) 2.4 Left Atria (s.<4.0cm> 4.0 LVPW d(<1.2cm) 1.4 RV (d.<2.3cm) 3.5 LVPW (sytole) 2.4 LV diastole(<5.6CM) 5.6 MV E-F(>70mm/sec) LV systole 2.9 LVOT Diameter 2.2 MV exc.(>10mm) Est.ejection fraction (50-75%) Pericardial Effusion N DOPPLER: LVIT A 93.0 E 73.0 LA RVSP 23.0 LVOT 101 AOP1/2T Asc. Ao 227 RVOT 85.0 RA PA 106 AV Gradient Peak 21.0 AV Mean 12.4 AV Area 1.7 MV Gradient Peak 4.0 MV Mean 1.6 MV Area COMMENTS: Health And Physical Education Professor: Momo BACHOE Grounds Maintenance Worker:1 Dr. Wray TAPE# PACS DATE OF SERVICE: 04/12/2016 Echocardiogram FINDINGS: 1. Left ventricular chamber size is within normal limits. Left ventricular systolic function is normal. Overall ejection fraction estimated at 55%. 2. Left atrium, right atrium, and right ventricular chamber sizes are upper limits of normal, left atrium measures 4.0 cm. 3. Valvular structures: Aortic valve demonstrates mild calcific aortic ECHOCARDIOGRAM REPORT [id number] AMBROSE PADILLA stenosis. Valve area calculates to 1.7 cm-squared. There is a gradient of 21 mm across the valve. The remaining valvular structures have normal structure and motion. 4. Doppler interrogation elsewise reveals mild mitral regurgitation. No other valvular insufficiency or stenosis. 5. No evidence of pericardial effusion or left ventricular thrombus. TRANSINT:[id number] Voice Confirmation ID: [id number] DOCUMENT ID: [id number] NARINDER WRAY MD at 1008 CC: [id number] DICTATION DATE: 04/12/16 1440 DUCO POLISHER: 04/12/16 1645 DIS IN 04/15/16 [place] [id number] [place] [address]
--- NOTE | 2016-04-24 10:08 | OP ---
PATIENT NAME: AMBROSE PADILLA MEDICAL RECORD: [id number] :38 LOCATION:D.M2 D.2139 ADMISSION DATE:04/12/16 SURGEON: NARINDER SOUZA MD DATE OF OPERATION: 04/13/2016 PROCEDURES: 1. PTCA stent, left circumflex. 2. Left heart catheterization. 3. Selective coronary angiography. 4. Left ventriculogram. INDICATIONS: Angina and coronary artery disease. PROCEDURE IN DETAIL: After informed consent was obtained and after a detailed explanation of the risks, benefits as well as alternative therapies, the patient elected to proceed with angiogram and angioplasty. The right femoral area had a pre-existing sheath from aortofemoral runoff. All catheters exchanged through this sheath. FINDINGS: The left ventriculogram was performed in the standard 30-degree ELMORE view, reveals good cardiac wall motion throughout all segments. Overall ejection fraction estimated 60%. SELECTIVE CORONARY ANGIOGRAPHY: 1. Left main showed no significant angiographic disease. 2. Left anterior descending has multiple areas of up to 90% stenosis throughout the mid vessel. 3. Left circumflex has 95% stenosis in the mid vessel. 4. Right coronary has multiple areas of 90%-95% stenosis. PTCA STENT OF THE LEFT CIRCUMFLEX: The stent used is a 4.0 x 18 mm Integrity. Result was 0% residual stenosis. OVERALL IMPRESSION: Successful percutaneous transluminal coronary angioplasty stent of the left circumflex going from 95% initial stenosis to 0% residual. PLAN: PTCA stent of the RCA and LAD in the near future in a staged fashion. TRANSINT:[id number] Voice Confirmation ID: [id number] DOCUMENT ID: [id number] NARINDER SOUZA MD at 1008 CC: [id number] DICTATION DATE: 04/13/16 1228 SUPERVISOR VOLUNTEER SERVICES: 04/13/162013 DIS IN 04/15/16 [place] [address] [place] [address]
--- NOTE | 2016-04-24 10:08 | CN ---
PATIENT NAME:AMBROSE PADILLA MEDICAL RECORD: [id number] : [birth year] LOCATION:. D.2139 ADMIT DATE: 04/12/16 ACCOUNT: [id number] CONSULTING PHYSICIAN: NARINDER SOUZA MD REFERRING PHYSICIAN: INES BOWIE MD DATE OF CONSULTATION: 04/12/2016 Cardiology Consultation DIAGNOSES: 1. Non-Q-wave myocardial infarction. 2. Coronary artery disease. 3. Previous coronary stenting. 4. Peripheral vascular disease. 5. Claudication. 6. Chronic obstructive pulmonary disease. 7. Hypertension. 8. Hyperlipidemia. HISTORY OF PRESENT ILLNESS: Mr. Padilla presents with increasing chest pain, chest discomfort compatible with angina. His troponin is positive. EKG has T-wave inversions throughout the lateral and anterior leads. He does have a history of cardiac stenting, multivessel stenting in the past, peripheral stenting as well. He is on simvastatin for cholesterol, metoprolol for blood pressure. He does remain on aspirin and Plavix. PHYSICAL EXAMINATION: GENERAL APPEARANCE: Well-nourished, well-developed, appears stated age. Level of distress, comfortable. PSYCHIATRIC: Mental status, alert, normal affect. Orientation, oriented to time, place and person. EYES: Lids and conjunctiva, noninjected. No discharge, no pallor. ENT: Lips, teeth, gums, normal dentition. Oropharynx, no cyanosis, no pallor. NECK: Carotid arteries, bilateral normal upstroke, no bruits, no thrills. JUGULAR VEINS: No jugular venous pressure or distention. CERVICAL LYMPH NODES: Nontender, nonenlarged. THYROID: Not enlarged. Nontender. No nodules. LUNGS: Respiratory effort, unlabored. CHEST: Normal curvature. No thoracic deformity. No chest wall tenderness. Percussion, resonant. Auscultation, clear. No wheezes, no rales, no rhonchi. CARDIOVASCULAR: Precordial exam, nondisplaced. No heaves or pericardial thrills. Rate and rhythm, regular. Heart sounds, normal S1, normal S2. No S3, no gallop, no rub. Systolic murmur, not heard. Diastolic murmur, not heard. EXTREMITIES: No cyanosis, no edema. Peripheral pulses, full and equal in all extremities, except as noted. No bruits appreciated. ABDOMEN: Soft, nondistended. Normal aorta. No bruit. Nontender. No masses. Liver, nontender, no hepatomegaly. Spleen, nontender, no splenomegaly. MUSCULOSKELETAL: No joint tenderness. No joint swelling. No erythema. NEUROLOGICAL: Normal gait, normal strength, normal tone. SKIN: Warm and dry. REVIEW OF SYSTEMS: The patient reports easy bruising but reports no swollen glands. The patient reports no fever, no night sweats, no significant weight gain, no significant weight loss. No significant exercise tolerance. The patient reports no dry eyes, no irritation, no vision change. Patient reports CONSULT REPORT [id number] AMBROSE PADILLA no difficulty hearing and no ear pain. Patient reports no frequent nose bleeds or nose and sinus problems. Patient reports on arm pain on exertion. No shortness of breath while lying down. No history of heart murmur. Patient reports no cough, no wheezing or coughing up blood. Patient reports no abdominal pain, no vomiting. Normal appetite. No diarrhea and not vomiting blood. No nausea and no constipation. Patient reports no incontinence. No difficulty urinating. No hematuria. No increased frequency. Patient reports no muscle aches. No weakness, no arthralgias, no back pain. No swelling of the extremities. Patient reports no abnormal mole, no jaundice, no rashes. Reports no loss of consciousness. No weakness and no numbness. No seizures, dizziness, or headaches. The patient reports no depression, no sleep disturbance, feeling safe in a relationship and no alcohol abuse. Patient reports on fatigue. Reports no runny nose or sinus pressure. No itching, no hives, and no frequent sneezing. OVERALL IMPRESSION: Non-Q-wave myocardial infarction with abnormal ECG, most likely he has recurrent hemodynamically significant coronary artery disease. We will proceed with coronary angiography. Further care depends upon findings of the angiography. TRANSINT:[id number] Voice Confirmation ID: [id number] DOCUMENT ID: [id number] NARINDER SOUZA MD at 1008 CC: [id number] DICTATION DATE: 04/12/16 1346 DIRECTIONAL BORE OPERATOR: 04/12/16 1811 DIS IN 04/15/16 [facility] [address] [place] [address]
== END 2016-04-15 12:53 | disposition home health service (06) | DRG 248 ==
LOC: D.ER 21:24 → D.M2 04-12 00:36 → OBSVTIME 04-12 00:36 → D.M2 04-12 14:23
PROVIDERS: Emergency Medicine; Internal Medicine Interventional Cardiology; ADMIT Emergency Medicine
PROC: B205YZZ Plain Radiography of Left Heart using Other Contrast (ICD-10-PCS; 2016-04-13)
PROC: 02703DZ Dilation of Coronary Artery, One Artery with Intraluminal Device, Percutaneous Approach (ICD-10-PCS; principal; 2016-04-13 13:30)
PROC: 02703GZ Dilation of Coronary Artery, One Artery with Four or More Intraluminal Devices, Percutaneous Approach (ICD-10-PCS; 2016-04-13 13:30)
PROC: 4A023N7 Measurement of Cardiac Sampling and Pressure, Left Heart, Percutaneous Approach (ICD-10-PCS; 2016-04-13 13:30)
PROC: 02C03ZZ Extirpation of Matter from Coronary Artery, One Artery, Percutaneous Approach (ICD-10-PCS; 2016-04-13 13:30)
PROC: B201YZZ Plain Radiography of Multiple Coronary Arteries using Other Contrast (ICD-10-PCS; 2016-04-13 13:30)
DX: I21.4 Non-ST elevation (NSTEMI) myocardial infarction (principal); I50.23 Acute on chronic systolic (congestive) heart failure; J96.21 Acute and chronic respiratory failure with hypoxia; I13.0 Hypertensive heart and chronic kidney disease with heart failure and stage 1 through stage 4 chronic kidney disease, or unspecified chronic kidney disease; J44.1 Chronic obstructive pulmonary disease with (acute) exacerbation; J98.11 Atelectasis; I70.213 Atherosclerosis of native arteries of extremities with intermittent claudication, bilateral legs; I25.10 Atherosclerotic heart disease of native coronary artery without angina pectoris; E11.22 Type 2 diabetes mellitus with diabetic chronic kidney disease; N18.9 Chronic kidney disease, unspecified; G47.33 Obstructive sleep apnea (adult) (pediatric); G20 Parkinson's disease; F02.80 Dementia in other diseases classified elsewhere, unspecified severity, without behavioral disturbance, psychotic disturbance, mood disturbance, and anxiety; E78.5 Hyperlipidemia, unspecified; Z99.81 Dependence on supplemental oxygen; D64.9 Anemia, unspecified; K21.9 Gastro-esophageal reflux disease without esophagitis; Z87.891 Personal history of nicotine dependence

== ENCOUNTER → 2016-04-24 07:33 | Outpatient (CLI) | payer MEDICARE ==
[~2016-04-24] VITALS: Ht 188 cm; Wt 122.7 kg
--- NOTE | ~2016-04-24 | HEMODYNAMI ---
PATIENT:AMBROSE PADILLA MEDICAL RECORD: [id number] : 38 LOCATION:D.CAT ADMISSION DATE: 04/24/16 Generatedon:04/24/201610:32 Patient name: AMBROSE PADILLA Patient #: [id number] SSN: [id number] : 1940 Date of study: 04/24/2016 Page: Of Hemodynamic Procedure Report Patient Data Patient Demographics Procedure consent was obtained First Name: AMBROSE Gender: Male Last Name: VALERIE : 1940 Middle Initial: R Age: 75 year(s) Patient #: [id number] Race: SSN: [id number] Additional ID: [id number] Contact details Address: [address] [place] [address] [place] State: [place] City: [facility] Zip code: [address] Past Medical History Allergies: No known allergies Admission Admission Data Admission Date: 04/24/2016 Admission Time: 7:33 Arrival Date: 04/24/2016 Arrival Time: 10:00 Admit Source: Other Insurance Payor: Medicare Weight (lbs.): 270 Weight (kg.): 122.47 Lab Results Lab Result Date: 04/24/2016 Lab Result Time: 0:00 Biochemistry Name Units Result Min Max BUN mg/dl 25 --(----)-* 7 18 Creatinine mg/dl 1.1 --(--*-)-- 0.6 1.3 CBC Name Units Result Min Max Hemoglobin g/dl 10.9 *-(----)-- 13.5 17.5 Procedure Procedure Types Cath Procedure PCI Procedure Coronary Stent Initial Miscellaneous Procedures Moderate Sedation up to 30 minutes Procedure Description Procedure Date Procedure Date: 04/24/2016 Procedure Start Time: 10:16 Procedure End Time: 10:29 Procedure Staff Name Function Ronald Wray MD Performing Physician Marysol Power RT Scrub Jakob Angel RN Nurse Audrey Peres RT Monitor Indication Angina Procedure Data Cath Procedure Fluoroscopy Diagnostic fluoroscopy Total fluoroscopy Time: 2.7 time: 2.7 min min Diagnostic fluoroscopy Total fluoroscopy dose: 416 dose: 416 mGy mGy Contrast Material Contrast Material Type Amount (ml) Isovue 370 55 Entry Location Entry Primary Successful Side Size Upsize Upsize Entry Closure Succes sful Closure Location (Fr) 1 (Fr) 2 (Fr) Remarks Device Remarks Femoral Right 7 Fr Exoseal artery Short Estimated blood loss: 5 ml Procedure Complications No complications Procedure Medications Medication Administration Route Dosage Oxygen NC 2 l/min Lidocaine 2% added to field 20 Heparin Flush Bag added to field 2 bags (1000units/500ml NS) 0.9% NaCl I.V. 100 ml/hr Versed I.V. 1 mg Fentanyl I.V. 50 mcg Fentanyl I.V. 100 mcg Versed I.V. 1 mg Fentanyl I.V. 50 mcg Heparin Bolus I.V. 4000 units Hemodynamics Rest HGB: 10.9 (g/dl) Heart Rate: 80 (bpm) Snapshots Pre Cath Intra NCS Post Cath Vital Signs Time Heart Resp SPO2 etCO2 AL2gwgg NIBP (mmHg) Rhythm Pain Sedatio n Rate (ipm) (%) (mmHg) (mmHg) Status Level (bpm) 8:58:19 84 17 95 0 0 173/97(149) NSR 0 (11) 10(A) , No pain 9:02:47 73 12 97 0 0 177/104(147) NSR 0 (11) 10(A) , No pain 9:09:00 85 23 96 0 0 174/101(144) NSR 0 (11) 10(A) , No pain 9:13:29 72 19 96 0 0 175/101(144) NSR 0 (11) 10(A) , No pain 9:17:57 72 20 96 0 0 179/99(144) NSR 0 (11) 10(A) , No pain 9:22:23 73 20 95 0 0 182/102(152) NSR 0 (11) 10(A) , No pain 9:26:53 73 20 96 0 0 175/98(157) NSR 0 (11) 10(A) , No pain 9:31:22 79 24 95 0 0 173/92(146) NSR 0 (11) 10(A) , No pain 9:35:46 73 15 96 0 0 178/98(144) NSR 0 (11) 10(A) , No pain 9:40:14 75 21 96 0 0 178/94(143) NSR 0 (11) 10(A) , No pain 9:44:40 82 19 96 0 0 178/89(133) NSR 0 (11) 10(A) , No pain 9:49:07 81 20 94 0 0 176/93(142) NSR 0 (11) 10(A) , No pain 9:53:35 79 15 95 0 0 176/87(140) NSR 0 (11) 10(A) , No pain 9:57:59 73 18 96 0 0 168/101(141) NSR 0 (11) 10(A) , No pain 10:02:25 77 14 94 0 0 166/91(139) NSR 0 (11) 10(A) , No pain 10:06:52 72 21 93 0 0 170/93(132) NSR 0 (11) 10(A) , No pain 10:11:16 70 19 95 0 0 166/96(139) NSR 0 (11) 10(A) , No pain 10:15:38 71 21 94 0 0 159/89(146) NSR 0 (11) 9(A) , No pain 10:19:56 73 19 94 0 0 169/92(127) NSR 0 (11) 9(A) , No pain 10:24:20 77 20 93 0 0 159/93(131) NSR 0 (11) 9(A) , No pain 10:28:41 84 17 95 0 0 163/98(137) NSR 0 (11) 9(A) , No pain 10:31:14 82 16 96 0 0 174/94(134) NSR 0 (11) 10(A) , No pain Medications Time Medication Route Dose Verified Delivered Reason Notes Effectiveness by by 8:55:37 Oxygen NC 2 Ronald Robert used for l/min 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 100 Ronald Buffie Per physician ml/hr Nils Angel RN 10:06:22 Fentanyl I.V. 100 Ronald Magañaie for back pain mcg Nils Angel RN 10:11:05 Versed I.V. 1 mg Ronald Magañaie for sedation Nils Angel RN 10:11:12 Fentanyl I.V. 50 Ronald Magañaie for sedation mcg Nils Angel RN 10:18:35 Versed I.V. 1 mg Ronald Robert for sedation Nils Angel RN 10:19:08 Fentanyl I.V. 50 Ronald Magañaie for back pain mcg Nils Angel RN 10:21:48 Heparin Bolus I.V. 4000 Ronald Robert for verifi ed units Nils Angel RN anticoagulation with dr wray Procedure Log Time Note 8:31:18 Informed consent obtained and on chart 8:31:24 Diagnostic Cath Status : Elective 8:32:57 Indication : Angina 8:33:08 Admit Source: Other 8:33:18 Arrival Date: 04/24/2016 10:00:00 AM 8:33:27 Insurance Payor : Medicare 8:33:45 Jakob Angel RN sent for patient. Start room use. 8:34:53 Time tracking: Regular hours 8:34:59 Plan of Care:Hemodynamics will remain stable., Cardiac rhythm will remain stable., Comfort level will be maintained., Respiratory function will remain adequate., Patient/ family verbilizes understanding of procedure., Procedure tolerated without complication., Recovers from procedure without complications.. 8:55:37 Oxygen 2 l/min NC was given by Jakob Angel RN; used for procedure; 8:56:57 Patient received from Pre/Post Procedure Room to CCL 1 Alert and oriented. Tansferred to table in Supine position. 8:56:58 Warm blankets applied, and keira hugger turned on for patient comfort. 8:56:59 Correct patient and procedure confirmed by team. 8:56:59 ECG and BP/O2 sat monitors applied to patient. 8:57:04 Vital chart was started 9:00:02 Patient diabetic? Yes. 9:00:05 If diabetic: On Metformin? No 9:00:06 Is patient on blood thinner?Yes 9:00:10 ACC The patient was administered the following blood thiners within the last 24 hours: ACCPlavix 9:00:14 Snore? Yes 9:00:15 Sleep apnea? Yes 9:00:22 Airway obstruction? Yes COPD 9:00:27 Dentures? Yes OUT 9:00:38 Baseline sample Acquired. 9:00:44 Rhythm: sinus rhythm 9:00:46 Full Disclosure recording started 9:01:01 H&P Date Dictated: 04/21/2016 Within 30 days and on chart., H&P Addendum completed by physician on day of procedure. (MUST COMPLETE FOR ALL OUTPATIENTS). 9:01:03 Pre-procedure instructions explained to patient. 9:01:06 Pre-op teaching completed and patient verbalized understanding. 9:01:40 Family in waiting room. 9:01:50 Patient NPO since Midnight. 9:01:55 Is the patient allergic to Iodine/contrast media? No. 9:02:08 Patient pain scale 0/10 ?. 9:02:16 IV patent on arrival in left hand with 0.9% NaCl at KVO. 9:02:26 Lab results completed and on chart. 9:02:30 Right groin area was prepped with chlora-prep and draped in sterile fashion 9:02:40 Alarms reviewed by R. N. 9:02:41 Sharps counted by scrub and verified by R.N. 9:10:01 Lab Result : Hemoglobin 10.9 g/dl 9:10:01 Lab Result : Creatinine 1.1 mg/dl 9:10:01 Lab Result : BUN 25 mg/dl 9:10:16 Use device set Femoral PCI 9:10:17 Acist Syringe opened to sterile field. 9:10:18 Acist Hand Control opened to sterile field. 9:10:18 Bag Decanter opened to sterile field. 9:10:19 Medline Cath Pack opened to sterile field. 9:10:20 St Sushil 260cm J .035 wire opened to sterile field. 9:10:20 Merit BasixCompak Inflation Kit opened to sterile field. 9:10:20 Acist Manifold opened to sterile field. 9:10:21 Tegaderm 4 x 4 opened to sterile field. 9:19:10 Baseline sample Acquired. 9:23:11 Lidocaine 2% 20ml vial added to field was given by Ronald Wray MD; for local anesthetic; 9:23:20 Heparin Flush Bag (1000units/500ml NS) 2 bags added to field was given by Ronald Wray MD; used for procedure; 9:23:30 0.9% NaCl 100 ml/hr I.V. was given by Jakob Angel RN; Per physician; 9:36:41 Zero performed for pressure channel P1 9:38:49 Zero performed for pressure channel P1 ::44 Physician arrived ::44 --------ALL STOP TIME OUT------ :44 Final Timeout: patient, procedure, and site verified with staff and physician. All members of the team are in agreement. 10:05:46 Right groin site verified by team. 10::49 Physical assessment completed. ASA score P 2 - A patient with mild systemic disease as per Ronald Wray MD. 10:05:56 Sedation plan: IV Moderate Sedation Versed, Fentanyl 10:06:22 Fentanyl 100 mcg I.V. was given by Jakob Angel RN; for back pain; 10:11:05 Versed 1 mg I.V. was given by Jakob Angel RN; for sedation; 10:11:12 Fentanyl 50 mcg I.V. was given by Jakob Angel RN; for sedation; 10:12:14 Lutz Portable Internetisper J 300cm 0.014 guide wire opened to sterile field. 10:13:27 Terumo 7Fr Provencal Sheath opened to sterile field. 10:16:20 PCI Cath status Elective 10:16:22 Procedure started. 10:16:31 Local anesthetic to right femoral artery with Lidocaine 2% by Ronald Wray MD.INITIAL ACCESS ONLY 10:16:42 A 7 Fr Short sheath was inserted into the Right Femoral artery 10:17:40 SinglePlatformtronic Launcher 7Fr EBU 4.0 guide catheter opened to sterile field. 10:18:35 Versed 1 mg I.V. was given by Jakob Angel RN; for sedation; 10:19:08 Fentanyl 50 mcg I.V. was given by Jakob Angel RN; for back pain; 10:19:39 Heavener Sci Amplatz Super Stiff 75CM guide wire opened to sterile field. 10:19:49 7 Fr ebu 4 guide catheter was inserted over the wire 10:20:02 whisper wire advanced. 10:21:48 Heparin Bolus 4000 units I.V. was given by Jakob Angel RN; for anticoagulation; verified with dr wray 10::58 Inflation Number: 1 A Medtronic Integrity 3.0 X 18 stent was prepped and advanced across the Mid LAD. The stent was deployed at 17 PAULETTE for 0:10 (min:sec). 10:25:12 Inflation number: 2 The stent balloon was then re-inflated across the Mid LAD to 21 PAULETTE for 0:10 (min:sec). 10::56 Stent catheter was removed intact over wire. 10::57 Wire removed. 10::58 Guide catheter removed. 10:26:25 Cordis 7Fr Exoseal opened to sterile field. 10::48 Sheath removed intact; hemostasis achieved with Exoseal to the Right Femoral artery. 10::50 Procedure ended.(Physican Out) 10:27:30 Fluoroscopy time 02.70 minutes. 10::52 Flurop Dose total: 416 10::52 Fluoroscopy dose: 416 mGy 10::00 Contrast amount:Isovue 370 55ml. 10:28:02 Sharps counted by scrub and verified by R.N. 10:28:03 Insertion/operative site no bleeding no hematoma. 10:28:16 Post-op/insertion site Right Femoral artery dressed using a 4 x 4 and Tegaderm. 10:28:19 Post right femoral artery:stable 10::21 Post Procedure Pulses reassessed and unchanged 10:28:24 Post procedure rhythm: unchanged. 10:28:27 Estimated blood loss: 5 ml 10::29 Post procedure instruction explained to patient.Patient verbalizes understanding. 10:28:29 Patient needs reinforcement of post procedure teaching. 10:28:34 Procedure type changed to Cath procedure, PCI procedure, Coronary Stent Initial, Miscellaneous Procedures, Moderate Sedation up to 30 minutes 10:28:35 Procedure and supply charges have been captured, reviewed, submitted and are correct. 10:29:00 Procedure Complication : No complications 10::03 Vital chart was stopped 10::03 See physician's report for complete and final results. 10:29:08 Report given to Pre/Post Procedure Room. 10:29:11 Patient transfered to Pre/Post Procedure Room with Stretcher. 10::19 Procedure ended. 10:: Full Disclosure recording stopped 10:29:27 ACC-PCI Only Patient was given prescriptions, or instructed by Ronald Wray MD to start/continue the following medications upon discharge: Plavix 10:29:28 End room use (Document Last) 10:30:04 Patient Weight : 270 kg Intervention Summary Intervention Notes Time ActionType Lesion and Equipment Action# Pressure Duration Attributes Used 10:24:58 Place stent Mid LAD Medtronic 1 17 00:10 Integrity 3.0 X 18 stent 10:25:12 Reinflate Mid LAD Medtronic 2 21 00:10 stent Integrity balloon 3.0 X 18 stent Device Usage Item Name Manufacture Quantity Catalog Hospital Part Current Minimal Lot# / Number Charge Number Stock Stock Serial# Code Acist Acist 1 [id number] [id number] 875976 [id number] 20 Syringe Medical Systems Inc Acist Hand Acist 1 56557 457159 996743 520370 5 Control Medical Systems Inc Bag Microtek 1 2002S 813200 98217 912504 5 Thoughtful Media Inc. Medline Cardinal 1 [id number] 222910 [address] St Sushil 1 290923 398099 461766 238192 30 260cm J .035 wire Merit Merit 1 [id number] 053496 428708 767673 15 Basix[place] Lights Medical Inflation Kit Acist Acist 1 30503 260893 490065 198779 5 Kurtosys Medical Systems Inc Tegaderm 4 3M 1 1626W 731427 314787 228494 5 x 4 Lutz Lutz 1 [id number] 713503 719463 296835 5 Whisper J Vascular 300cm 0.014 guide wire Terumo 7Fr Terumo 1 [id number] 614377 016908 261122 5 Provencal Sheath Medtronic Medtronic 1 [id number] 687363 044571 595055 0 Launcher 7Fr EBU 4.0 guide catheter Heavener Sci Heavener 1 [id number] 658373 052862 069502 5 Amplatz Scientific Super Stiff 75CM guide wire Medtronic Medtronic 1 [id number] 336849 752486 752514 5 [id number] Integrity 3.0 X 18 stent Cordis 7Fr Cardinal 1 EX700 320033 447451 418154 5 SocialStay Signature Audit [place] Stage Time Signature Unsigned Intra-Procedure 04/24/2016 Marysol Power 10:32:47 AM RT(R) Signatures Monitor : Audrey Peres Signature : RT Date : Time : [facility] [address] [place] [address]
[~2016-04-24 07:33] MED LIST changes: +HYDROCODON-ACE1 EAC7 PO
[2016-04-24 08:20] VITALS: BP 164/86; Ht 188 cm; Wt 122.7 kg
[2016-04-24 08:37] LABS: BASOPHILS 0.1 % (0.0-2.0); EOSINOPHILS 3.6 % (0-7); HEMATOCRIT 34.5 % (42.0-54.0); HEMOGLOBIN 10.9 g/dL (13.5-17.5); IMMATURE GRANULOCYTES 0.3 % (0-5); LYMPHOCYTES 12.6 % (15-50); MCH 28.5 pg (26.0-34.0); MCHC 31.6 g/dL (31.0-37.0); MCV 90.3 fL (80.0-100.0); MEAN PLATELET VOLUME 10.3 fL (7.4-10.4); MONOCYTES 7.8 % (2-11); NEUTROPHILS 75.6 % (40-80); RBC 3.82 10x6/uL (4.20-6.10); RDW 12.9 % (11.5-14.5); WBC 7.7 10x3/uL (4.8-10.8)
[2016-04-24 08:38] LABS: PLATELET COUNT 177 10x3/uL (130-400)
[2016-04-24 08:45] LABS: ANION GAP 10.9 mmol/L (8-16); CALCIUM 8.8 mg/dL (8.5-10.1); CARBON DIOXIDE 30.6 mmol/L (21.0-32.0); CREATININE - SERUM 1.1 mg/dL (0.6-1.3); POTASSIUM - SERUM 4.5 mmol/L (3.5-5.1)
--- NOTE | 2016-04-24 11:00 | NUR ---
BP 155/82 HR 82 CHEST PAIN IS DENIED O2 AT 2 LITERS NASAL NO DISTRESS NOTED. FEMSTOP TO R/GROIN CDI NO BLEEDING HEMATOMA MARKED. PRESSURE TO FEMSTOP AT 178 INSTRUCTED PATIENT TO KEEP HEAD FLAT ON PILLOW WITH RLE STRAIGHT
--- NOTE | 2016-04-24 11:30 | NUR ---
1130 VSS WITH CHEST PAIN DENIED FEMSTOP REMAINS IN PLACE WITH NO BLEEDING AT SITE.
--- NOTE | 2016-04-24 11:42 | NUR ---
PATIENT COMPLAINS OF PAIN TO R/LEG PRESSURE RELEASED ON FEMSTOP TO 90 NO BLEEDING NO HEMATOMA NOTED. DR SOUZA NOTIFIED FOR PAIN MED WITH ORDERS RECIEVED
--- NOTE | 2016-04-24 12:15 | NUR ---
1215 PATIENT RESTING QUIELTY RESPONDS TO VERBAL WITH PAIN RATED AT 2 ON SCALE AFTER NORCO GIVEN ORAL. FEMSTOP REMAINS IN PLACE WITH NO PRESSURE HELD NO BLEEDING NO HEMATOMA NOTED
--- NOTE | 2016-04-24 12:45 | NUR ---
RESTING IN BED WITH EYES CLOSED. VSS, NO C/O AT THIS TIME. RIGHT GROIN DRSG CDI, NO BLEEDING OR HEMATOMA NOTED.
--- NOTE | 2016-04-24 13:15 | NUR ---
1315 FEMSTOP REMOVED WITH DRESSING APPLIED NO BLEEDING NO HEMATOMA NOTED 1345 RESTING QUIETLY WITH EYES CLOSED NO DISTRESS NOTED FAMILY AT SIDE VSS WITH DRESSING TO R/GROIN CDI
--- NOTE | 2016-04-24 13:56 | NUR ---
PIV REMOVED FROM LEFT ARM WITH DRESSING APPLIED 7 FR VASCADE R/GROIN CDI NO BLEEDING NO HEMATOMA NOTED. CHEST PAIN IS DENIED PATIENT REPOSITIONED TO SITTING WITH HOB UP 45 DEGREES TO GET DRESSED FOR DISCHARGE HOME
--- NOTE | 2016-04-24 13:59 | NUR ---
PATIENT UP TO BEDSIDE DRESSED VERBAL AND WRITTEN DISCHARGE GONE OVER WITH PATIENT AND FAMILY. CHEST PAIN IS DENIED. TRANSPORTED VIA TO PARKING FOR FAMILY TO DRIVE HOME
--- NOTE | 2016-05-09 14:37 | HP ---
PATIENT: AMBROSE PADILLA MEDICAL RECORD: [id number] ACCOUNT: [id number] LOCATION:ARIANA : 38 ADMISSION DATE: 04/24/16 HISTORY AND PHYSICAL EXAMINATION ADMITTING DIAGNOSES: 1. Angina. 2. Coronary artery disease. 3. Recent percutaneous transluminal coronary angioplasty stent right coronary artery and left circumflex with significant disease left anterior descending. 4. Hypertension. 5. Hyperlipidemia. HISTORY OF PRESENT ILLNESS: Mr. Padilla presented with unstable angina, found to have severe history of coronary artery disease. He underwent Diamondback atherectomy, PTCA stent of the RCA, underwent PTCA stent of the left circumflex. He is now brought back for PTCA stent of the LAD. PHYSICAL EXAMINATION: GENERAL APPEARANCE: Well-nourished, well-developed, appears stated age. Level of distress, comfortable. PSYCHIATRIC: Mental status, alert, normal affect. Orientation, oriented to time, place and person. EYES: Lids and conjunctiva, noninjected. No discharge, no pallor. ENT: Lips, teeth, gums, normal dentition. Oropharynx, no cyanosis, no pallor. NECK: Carotid arteries, bilateral normal upstroke, no bruits, no thrills. JUGULAR VEINS: No jugular venous pressure or distention. CERVICAL LYMPH NODES: Nontender, nonenlarged. THYROID: Not enlarged. Nontender. No nodules. LUNGS: Respiratory effort, unlabored. CHEST: Normal curvature. No thoracic deformity. No chest wall tenderness. Percussion, resonant. Auscultation, clear. No wheezes, no rales, no rhonchi. CARDIOVASCULAR: Precordial exam, nondisplaced. No heaves or pericardial thrills. Rate and rhythm, regular. Heart sounds, normal S1, normal S2. No S3, no gallop, no rub. Systolic murmur, not heard. Diastolic murmur, not heard. EXTREMITIES: No cyanosis, no edema. Peripheral pulses, full and equal in all extremities, except as noted. No bruits appreciated. ABDOMEN: Soft, nondistended. Normal aorta. No bruit. Nontender. No masses. Liver, nontender, no hepatomegaly. Spleen, nontender, no splenomegaly. MUSCULOSKELETAL: No joint tenderness. No joint swelling. No erythema. NEUROLOGICAL: Normal gait, normal strength, normal tone. SKIN: Warm and dry. REVIEW OF SYSTEMS: The patient reports easy bruising but reports no swollen glands. The patient reports no fever, no night sweats, no significant weight gain, no significant weight loss. No significant exercise tolerance. The patient reports no dry eyes, no irritation, no vision change. Patient reports no difficulty hearing and no ear pain. Patient reports no frequent nose bleeds or nose and sinus problems. Patient reports on arm pain on exertion. No shortness of breath while lying down. No history of heart murmur. Patient reports no cough, no wheezing or coughing up blood. Patient reports no abdominal pain, no vomiting. Normal appetite. No diarrhea and not vomiting blood. No nausea and no constipation. Patient reports no incontinence. No difficulty urinating. No hematuria. No increased frequency. Patient reports no muscle aches. No weakness, no arthralgias, no back pain. No swelling of the HISTORY AND PHYSICAL [id number] [facility] extremities. Patient reports no abnormal mole, no jaundice, no rashes. Reports no loss of consciousness. No weakness and no numbness. No seizures, dizziness, or headaches. The patient reports no depression, no sleep disturbance, feeling safe in a relationship and no alcohol abuse. Patient reports on fatigue. Reports no runny nose or sinus pressure. No itching, no hives, and no frequent sneezing. OVERALL IMPRESSION: Critical disease of the left anterior descending. We will proceed with transcatheter revascularization of the left anterior descending. TRANSINT:[id number] Voice Confirmation ID: [id number] DOCUMENT ID: [id number] NARINDER SOUZA MD at 1437 CC: [id number] DICTATION DATE: 04/24/16 1013 AGRONOMY SPECIALIST: 04/24/16 1039 DEP CLI 04/24/16 [place] [id number]
--- NOTE | 2016-05-09 14:37 | OP ---
PATIENT NAME: ABMROSE PADILLA MEDICAL RECORD: [id number] :38 LOCATION:D.CAT ADMISSION DATE: SURGEON: NARINDER SOUZA MD DATE OF OPERATION: 04/24/2016 PROCEDURES: 1. PTCA stent of LAD. 2. Selective coronary angiography. INDICATION: Angina and coronary artery disease. DESCRIPTION OF THE PROCEDURE: After informed consent was obtained and after a detailed explanation of risks, benefits as well as alternative therapies, the patient elected to proceed with angiogram and angioplasty. The right femoral area was prepped and draped in normal sterile fashion. The right femoral artery was cannulated via modified Seldinger technique with placement of a 7-Kittitian sheath. All catheters exchanged through this sheath. FINDINGS: The left anterior descending has an 80% stenosis. The mid vessel was addressed with a 3.0 x 18 mm Integrity stent. Result was 0% residual stenosis. OVERALL IMPRESSION: Successful percutaneous transluminal coronary angioplasty stent of the left anterior descending going from 80% initial stenosis to 0% residual. TRANSINT:[id number] Voice Confirmation ID: [id number] DOCUMENT ID: [id number] NARINDER SOUZA MD at 1437 CC: [id number] DICTATION DATE: 04/24/16 1031 CEMENTER MACHINE APPLICATOR: 04/24/16 1750 [facility] CLI 04/24/16 [place] [id number] [place] [address]
== END | disposition home or self-care (01) ==
LOC: D.CATH 07:33
PROVIDERS: Internal Medicine Interventional Cardiology
DX: I25.119 Atherosclerotic heart disease of native coronary artery with unspecified angina pectoris (principal); Z95.5 Presence of coronary angioplasty implant and graft; I10 Essential (primary) hypertension; E78.5 Hyperlipidemia, unspecified

== ENCOUNTER 2016-07-10 09:31 | Observation (INO) | payer MEDICARE ==
[~2016-07-10] VITALS: Ht 188 cm; Wt 77.3 kg
--- NOTE | ~2016-07-10 | HEMODYNAMI ---
PATIENT:AMBROSE PADILLA MEDICAL RECORD: [id number] : 38 LOCATION[facility] D[id number] ADMISSION DATE: 07/10/16 Generatedon:07/11/201610:31 Patient name: AMBROSE PADILLA Patient #: [id number] SSN: [id number] : 1940 Date of study: 07/11/2016 Page: Of Hemodynamic Procedure Report Patient Data Patient Demographics Procedure consent was obtained First Name: AMBROSE Gender: Male Last Name: VALERIE : 1940 Middle Initial: R Age: 75 year(s) Patient #: [id number] Race: SSN: [id number] Additional ID: [id number] Contact details Address: [address] [place] [address] [place] State: [place] City: [facility] Zip code: [address] Past Medical History Allergies: No known allergies Admission Admission Data Admission Date: 07/10/2016 Admission Time: 9:31 Arrival Date: 07/10/2016 Arrival Time: 9:31 Admit Source: Other Insurance Payor: Medicare Room #: D.2114 Weight (lbs.): 169.76 Weight (kg.): 77 Lab Results Lab Result Date: 07/11/2016 Lab Result Time: 0:00 Biochemistry Name Units Result Min Max BUN mg/dl 31 --(----)-* 7 18 Creatinine mg/dl 1.3 --(---*)-- 0.6 1.3 CBC Name Units Result Min Max Hemoglobin g/dl 11 *-(----)-- 13.5 17.5 Procedure Procedure Types Cath Procedure Diagnostic Procedure C [facility] w/Coronaries PCI Procedure Coronary Stent Initial Miscellaneous Procedures Moderate Sedation up to 30 minutes Procedure Description Procedure Date Procedure Date: 07/11/2016 Procedure Start Time: 10:10 Procedure End Time: 10:28 Procedure Staff Name Function Ronald Wray MD Performing Physician Marysol Power RT Scrub Jakob Angel RN Nurse Audrey Peres RT Monitor Indication Angina Procedure Data Cath Procedure Fluoroscopy Diagnostic fluoroscopy Total fluoroscopy Time: 3.8 time: 3.8 min min Diagnostic fluoroscopy Total fluoroscopy dose: dose: 467.5 mGy 467.5 mGy Contrast Material Contrast Material Type Amount (ml) Isovue 300 136 Entry Location Entry Primary Successful Side Size Upsize Upsize Entry Closure Succes sful Closure Location (Fr) 1 (Fr) 2 (Fr) Remarks Device Remarks Femoral Right 5 Fr 6 Fr Exoseal artery Short Estimated blood loss: 5 ml Diagnostic catheters Device Type Used For End Catheter Placement Cordis 5Fr Pigtail Procedure Catheter (MP) Cordis 5Fr JL 4.0 Procedure Catheter (MP) Diagnostic Infinity 5Fr Left Coronary JL 5 catheter Angiography Cordis 5Fr 3DRC Catheter Right Coronary (MP) Angiography Procedure Complications No complications Procedure Medications Medication Administration Route Dosage Oxygen NC 3 l/min Oxygen 6 l/min Lidocaine 2% added to field 20 Heparin Flush Bag added to field 2 bags (1000units/500ml NS) 0.9% NaCl I.V. 100 ml/hr Zofran I.V. 4 mg Plavix P.O. 75 mg Versed I.V. 0.5 mg Fentanyl I.V. 25 mcg Versed I.V. 0.5 mg Fentanyl I.V. 25 mcg Versed I.V. 0.5 mg Fentanyl I.V. 25 mcg Fentanyl I.V. 25 mcg Heparin Bolus I.V. 4000 units Fentanyl I.V. 25 mcg Hemodynamics Rest HGB: 11 (g/dl) Heart Rate: 75 (bpm) Pressure Samples Time Site Value (mmHg) Purpose Heart Use Rate(bpm) 10:12 LV 169/29,76 Snapshot 74 Snapshots Pre Cath Intra NCS Post Cath Vital Signs Time Heart Resp SPO2 NIBP (mmHg) Rhythm Pain Sedation Rate (ipm) (%) Status Level (bpm) 9:41:16 86 22 81 191/98(163) NSR 0 (11) 10(A) , No pain 9:45:58 68 16 90 191/104(156) NSR 0 (11) 10(A) , No pain 9:50:41 86 15 93 190/109(149) NSR 0 (11) 10(A) , No pain 9:55:21 66 27 94 166/88(149) NSR 0 (11) 10(A) , No pain 9:59:54 72 25 94 158/107(133) NSR 0 (11) 10(A) , No pain 10:04:22 68 16 94 162/94(128) NSR 0 (11) 10(A) , No pain 10:08:55 70 24 94 167/92(137) NSR 0 (11) 10(A) , No pain 10:13:23 74 21 96 158/80(111) NSR 0 (11) 10(A) , No pain 10:17:49 76 16 94 136/110(126) NSR 0 (11) 10(A) , No pain 10:22:48 68 22 93 Measuring NSR 0 (11) 10(A) , No pain 10:23:11 68 22 92 140/89(127) NSR 0 (11) 10(A) , No pain 10:27:37 70 23 93 161/79(141) NSR 0 (11) 10(A) , No pain Medications Time Medication Route Dose Verified Delivered Reason Notes Effectiveness by by 9:29:17 Oxygen NC 3 Ronald Buffie used for l/min Nils Angel RN procedure 9:41:34 Oxygen simple 6 Ronald Buffie for low 02 mask l/min Nils Angel RN sats 9:48:46 Lidocaine 2% added 20ml Ronaldcortney Cardenas for local to vial Nils Wray MD anesthetic field 9:48:52 Heparin Flush added 2 Ronaldcortney Cardenas used for Bag to bags Nils Wray MD procedure (1000units/500ml field NS) 9:49:05 Zofran I.V. 4 mg Ronald Robert Per pt Nils Angel RN physician states nausea. 9:49:05 0.9% NaCl I.V. 100 Ronald Robert Per ml/hr Nils Angel RN physician 9:52:18 Plavix P.O. 75 mg Ronald Robert for Nils Angel RN antiplatelet therapy 9:55:19 Versed I.V. 0.5 Ronald Buffie for sedation mg Nils Angel RN 9:55:25 Fentanyl I.V. 25 Ronald Magañaie for sedation mcg Nils Angel RN 9:57:57 Versed I.V. 0.5 Ronald Magañaie for sedation mg Nils Angel RN 9:58:02 Fentanyl I.V. 25 Ronald Robert for sedation mcg Nils Angel RN 10:08:05 Versed I.V. 0.5 Ronald Robert for sedation mg Nils Angel RN 10:08:11 Fentanyl I.V. 25 Ronald Robert for sedation mcg Nils Angel RN 10:11:45 Fentanyl I.V. 25 Ronald Robert for sedation mcg Nils Angel RN 10:17:17 Heparin Bolus I.V. 4000 Ronald Robert Per verified units Nils Angel RN physician with dr wray 10:20:09 Fentanyl I.V. 25 Ronald Robert for sedation mcg Nils Angel RN Procedure Log Time Note 9:06:07 Informed consent obtained and on chart 9:06:12 Diagnostic Cath Status : Elective 9:07:01 Indication : Angina 9:07:06 Jakob Angel RN sent for patient. Start room use. 9:07:07 Time tracking: Regular hours 9:07:11 Plan of Care:Hemodynamics will remain stable., Cardiac rhythm will remain stable., Comfort level will be maintained., Respiratory function will remain adequate., Patient/ family verbilizes understanding of procedure., Procedure tolerated without complication., Recovers from procedure without complications.. 9:07:48 Lab Result : BUN 31 mg/dl 9:07:48 Lab Result : Hemoglobin 11 g/dl 9:07:48 Lab Result : Creatinine 1.3 mg/dl 9:11:04 Patient Weight : 77 kg 9:11:07 Admit Source: Other 9:11:10 Arrival Date: 07/10/2016 9:31:00 AM 9:11:32 Insurance Payor : Medicare 9:29:17 Oxygen 3 l/min NC was administered by Jakob Angel RN; used for procedure; 9:29:17 Patient received from Med II to CCL 3 Alert and oriented. Tansferred to table in Supine position. 9:29:35 Warm blankets applied, and keira hugger turned on for patient comfort. 9:29:35 Correct patient and procedure confirmed by team. 9:29:37 ECG and BP/O2 sat monitors applied to patient. 9:38:34 Vital chart was started 9:38:37 Baseline sample Acquired. 9:38:46 Rhythm: sinus tachycardia 9:38:48 Full Disclosure recording started 9:39:14 H&P Date Dictated: 07/10/2016 Within 30 days and on chart., H&P Addendum completed by physician on day of procedure. (MUST COMPLETE FOR ALL OUTPATIENTS). 9:39:16 Pre-procedure instructions explained to patient. 9:39:22 Pre-op teaching completed and patient verbalized understanding. 9:39:24 Family in waiting room. 9:39:26 Patient NPO since Midnight. 9:39:35 Patient allergic to No known allergies 9:39:40 Is the patient allergic to Iodine/contrast media? No. 9:39:45 Is patient on blood thinner?Yes 9:39:56 Patient diabetic? Yes. 9:40:04 If diabetic: On Metformin? Yes 9:40:11 If on Metformin: Last Dose? 07/11/2016 9:40:32 Previous problem with sedation/anesthesia? No ? 9:40:36 Snore? Yes 9:41:34 Oxygen 6 l/min simple mask was administered by Jakob Angel RN; for low 02 sats; 9:42:32 Sleep apnea? Yes 9:42:33 Deviated septum? No 9:42:35 Opens mouth fully? Yes 9:42:37 Sticks out tongue? Yes 9:42:40 Airway obstruction? Yes copd 9:44:20 Dentures? Yes out 9:44:23 Pre procedure: right dorsailis pedis pulse 1+ Palpable, but thready & weak; easily obliterated 9:44:25 Patient pain scale 0/10 ?. 9:44:32 IV patent on arrival in right forearm with 0.9% NaCl at KVO. 9:44:35 Lab results completed and on chart. 9:45:03 Right groin area was prepped with chlora-prep and draped in sterile fashion 9:45:04 Alarms reviewed by R. N. 9:45:04 Sharps counted by scrub and verified by R.N. 9:48:46 Lidocaine 2% 20ml vial added to field was administered by Ronald Wray MD; for local anesthetic; 9:48:52 Heparin Flush Bag (1000units/500ml NS) 2 bags added to field was administered by Ronald Wray MD; used for procedure; 9:49:05 Zofran 4 mg I.V. was administered by Jakob Angel RN; Per physician; pt states nausea. 9:49:05 0.9% NaCl 100 ml/hr I.V. was administered by Jakob Angel RN; Per physician; 9:52:18 Plavix 75 mg P.O. was administered by Jakob Angel RN; for antiplatelet therapy; 9:52:42 Use device set Femoral Dx 9:52:44 Acist Syringe opened to sterile field. 9:52:44 Bag Decanter opened to sterile field. 9:52:45 Medline Cath Pack opened to sterile field. 9:52:45 Terumo 5Fr [place] Sheath opened to sterile field. 9:52:46 St Sushil 260cm J .035 wire opened to sterile field. 9:52:47 Acist Hand Control opened to sterile field. 9:52:48 Acist Manifold opened to sterile field. 9:52:48 Diagnostic Infinity 5Fr Multipack catheter opened to sterile field. 9:52:49 Tegaderm 4 x 4 opened to sterile field. 9:53:49 Physician arrived 9:53:49 --------ALL STOP TIME OUT------ 9:53:50 Final Timeout: patient, procedure, and site verified with staff and physician. All members of the team are in agreement. 9:53:52 Right groin site verified by team. 9:53:54 Physical assessment completed. ASA score P 3 - A patient with severe systemic disease as per Ronald Wray MD. 9:53:57 Sedation plan: IV Moderate Sedation Versed, Fentanyl 9:55:14 Zero performed for pressure channel P1 9:55:19 Versed 0.5 mg I.V. was administered by Jakob Angel RN; for sedation; 9:55:25 Fentanyl 25 mcg I.V. was administered by Jakob Angel RN; for sedation; 9:55:56 Procedure type changed to Cath procedure, Diagnostic procedure, LHC, LHC w/Coronaries, PCI procedure, Coronary Stent Initial, Miscellaneous Procedures, Moderate Sedation up to 30 minutes 9:57:57 Versed 0.5 mg I.V. was administered by Jakob Angel RN; for sedation; 9:58:02 Fentanyl 25 mcg I.V. was administered by Jakob Angel RN; for sedation; 10:08:05 Versed 0.5 mg I.V. was administered by Jakob Angel RN; for sedation; 10:08:11 Fentanyl 25 mcg I.V. was administered by Jakob Angel RN; for sedation; 10:10:05 Procedure started. 10:10:20 Local anesthetic to right femoral artery with Lidocaine 2% by Ronald Wray MD.INITIAL ACCESS ONLY 10:11:02 A 5 Fr sheath was inserted into the Right Femoral artery 10:11:31 A Cordis 5Fr Pigtail Catheter (MP) was advanced over the wire and used for Procedure. 10:11:45 Fentanyl 25 mcg I.V. was administered by Jakob Angel RN; for sedation; 10:12:30 LV hemodynamics recorded. 10:12:32 LV gram done using ELMORE 10:12:41 EF : 50 % 10:12:43 Catheter removed. 10:13:02 A Cordis 5Fr JL 4.0 Catheter (MP) was advanced over the wire and used for Procedure. 10:13:37 Catheter removed. unable to cannulate vessel. 10:14:40 A Diagnostic Infinity 5Fr JL 5 catheter was advanced over the wire and used for Left Coronary Angiography. 10:15:26 LCA angiography performed. 10:15:29 Injector settings: Ml/sec: 3, Volume: 6, 10:16:03 [place]-8 BasixCompak Inflation Kit opened to sterile field. 10:16:34 Lutz Whisper J 300cm 0.014 guide wire opened to sterile field. 10:16:40 Terumo 6Fr [place] Sheath opened to sterile field. 10:16:57 Catheter removed. 10:17:01 A Cordis 5Fr 3DRC Catheter (MP) was advanced over the wire and used for Right Coronary Angiography. 10:17:17 Heparin Bolus 4000 units I.V. was administered by Jakob Angel RN; Per physician; verified with dr wray 10:17:18 Glofoxtronic Launcher 6Fr EBU 4.5 guide catheter opened to sterile field. 10:19:15 RCA angiography performed. 10:19:18 Injector settings: Ml/sec: 3, Volume: 6, 10:19:21 Catheter removed. 10:19:22 Proceeding to intervention. 10:19:28 Sheath upsized to a 6 Fr Short. 10:19:39 6 Fr ebu 4.5 guide catheter was inserted over the wire 10:19:50 whisper wire advanced. 10:20:09 Fentanyl 25 mcg I.V. was administered by Jakob Angel RN; for sedation; 10::49 Inflation Number: 1 A Medtronic Resolute 3.5 X 26 stent was prepped and advanced across the Prox CX. The stent was deployed at 0 PAULETTE for 0:10 (min:sec). 10::17 Inflation number: 2 The stent balloon was then re-inflated across the Prox CX to 17 PAULETTE for 0:10 (min:sec). 10::51 Stent catheter was removed intact over wire. 10::52 Wire removed. 10::52 Guide catheter removed. 10:23:18 Cordis 6Fr Exoseal opened to sterile field. 10:23:50 Sheath removed intact; hemostasis achieved with Exoseal to the Right Femoral artery. 10:24:00 Procedure ended.(Physican Out) 10::52 Fluoroscopy time 03.80 minutes. 10:25:59 Flurop Dose total: 467.5 10:25:59 Fluoroscopy dose: 467.5 mGy 10:26:19 Contrast amount:Isovue 300 136ml. 10:26:21 Sharps counted by scrub and verified by R.N. 10:26:35 Insertion/operative site no bleeding no hematoma. 10:26:40 Post-op/insertion site Right Femoral artery dressed using a 4 x 4 and Tegaderm. 10:26:44 Post right femoral artery:stable 10:26:47 Post Procedure Pulses reassessed and unchanged 10::52 Post procedure rhythm: unchanged. 10:26:55 Estimated blood loss: 5 ml 10:27:09 Post procedure instruction explained to patient.Patient verbalizes understanding. 10:27:10 Patient needs reinforcement of post procedure teaching. 10:27:12 Procedure and supply charges have been captured, reviewed, submitted and are correct. 10:27:38 Procedure Complication : No complications 10:27:41 Vital chart was stopped 10:27:42 See physician's report for complete and final results. 10:28:02 Report given to [facility]. 10:28:05 Patient transfered to [facility] with Stretcher. 10:28:07 Procedure ended. 10:28:07 Full Disclosure recording stopped 10:28:15 ACC-PCI Only Patient was given prescriptions, or instructed by Ronald Wray MD to start/continue the following medications upon discharge: Plavix 10::17 End room use (Document Last) Intervention Summary Intervention Notes Time ActionType Lesion and Equipment Action# Pressure Duration Attributes Used 10:21:49 Place stent Prox CX Medtronic 1 0 00:10 Resolute 3.5 X 26 stent 10:22:17 Reinflate Prox CX Medtronic 2 17 00:10 stent Resolute balloon 3.5 X 26 stent Device Usage Item Name Manufacture Quantity Catalog Hospital Part Current Minimal Lot# / Number Charge Number Stock Stock Serial# Code Acist Acist 1 [id number] 519817 898054 20 Syringe Medical Systems Inc Bag Microtek 1 2002S 215478 55779 870766 5 DecAscension [employer] Inc. Medline Cardinal 1 [id number] 045202 89920 439230 5 Cath Pack Health Terumo 5Fr Terumo 1 [id number] 419169 354526 201398 [address] St Sushil 1 925810 520037 214783 269001 30 260cm J .035 wire Acist Hand Acist 1 24809 059134 033330 921243 5 Euroling Medical Systems Inc Acist Acist 1 45296 116056 444473 335776 5 PharmMD Medical Systems Inc Diagnostic Cardinal 1 [id number] 642482 08118 049166 30 Infinity Health 5Fr Multipack catheter Tegaderm 4 3M 1 1626W 076472 609439 522212 5 x 4 Cordis 5Fr Cardinal 1 021378 5 Pigtail Health Catheter (MP) Cordis 5Fr Cardinal 1 486985 5 JL 4.0 Health Catheter (MP) Diagnostic Cardinal 1 [id number] 209654 896517 176100 5 Infinity Health 5Fr JL 5 catheter Merit Merit 1 [id number] 972229 540196 662313 15 BasixCompak Medical Inflation Kit Lutz Lutz 1 [id number] 339294 265110 748075 5 Whisper J Vascular 300cm 0.014 guide wire Terumo 6Fr Terumo 1 [id number] 345168 829192 392882 40 [place] Sheath Cordis 5Fr Cardinal 1 313854 5 3DRC Health Catheter (MP) Medtronic Medtronic 1 [id number] 854713 80433 879442 0 Launcher 6Fr EBU 4.5 guide catheter Medtronic Medtronic 1 [id number] 451608 605566 3 [id number] Resolute 3.5 X 26 stent Cordis 6Fr Cardinal 1 EX600 722690 174689 761960 10 [facility] Health Signature Audit [place] Stage Time Signature Unsigned Intra-Procedure 07/11/2016 Marysol Tono 10:31:42 AM RT(R) Signatures Monitor : Audrey Peres Signature : RT Date : Time : [facility] [address] [place] [address]
[2016-07-10 10:12] LABS: BASOPHILS 0.1 % (0-2); EOSINOPHILS 2.4 % (0-7); IMMATURE GRANULOCYTES 0.1 % (0-5); LYMPHOCYTES 11.9 % (15-50); MCHC 31.4 g/dL (31.0-37.0); MCV 89.1 fL (80.0-100.0); MEAN PLATELET VOLUME 10.1 fL (7.4-10.4); MONOCYTES 6.7 % (2-11); NEUTROPHILS 78.8 % (40-80); PLATELET COUNT 136 10x3/uL (130-400); RBC 3.93 10x6/uL (4.20-6.10); RDW 13.8 % (11.5-14.5); WBC 6.7 10x3/uL (4.8-10.8)
[2016-07-10 10:22] LABS: ALBUMIN 2.9 g/dL (3.4-5.0); ALKALINE PHOSPHATASE 70 U/L (46-116); ALT (SGPT) 16 U/L (10-68); CALC OSMOLALITY 292 mosm/kg (275-300); CARBON DIOXIDE 29.1 mmol/L (21.0-32.0); CHLORIDE - SERUM 107 mmol/L (98-107); CREATININE - SERUM 1.3 mg/dL (0.6-1.3); POTASSIUM - SERUM 4.9 mmol/L (3.5-5.1); PROTEIN - SERUM 6.7 g/dL (6.4-8.2); SODIUM 143 mmol/L (136-145); UREA NITROGEN 31 mg/dL (7-18); eGFR NON AFRICAN AMERICAN 57 mL/min (90-120)
[2016-07-10 10:27] LABS: GLUCOSE 118 mg/dL (74-106)
[2016-07-10 10:31] LABS: CHOL - HDL RATIO 5.1 ratio (2.3-4.9); CHOLESTEROL, TOTAL 143 mg/dL (0-200); CKMB 81.1 U/L (0.0-3.6); CREATINE KINASE 74 UL (21-232); HDL CHOLESTEROL 28 mg/dL (32-96); LDL CHOLESTEROL 82 mg/dL (0-100); LDL-HDL RATIO 2.9 ratio (1.5-3.5); TRIGLYCERIDE 169 mg/dL (30-200); TROPONIN-I 0.029 ng/mL (0.000-0.060)
[2016-07-10 12:32] VITALS: BP 169/84; Ht 188 cm; Wt 77.3 kg
[2016-07-10] MEDS ORDERED: K-DUR20 MEQ PO (12:51)
[2016-07-10 14:42] LABS: CKMB 90.4 U/L (0.0-3.6); CREATINE KINASE 80 UL (21-232); TROPONIN-I 0.055 ng/mL (0.000-0.060)
[2016-07-10 17:06] VITALS: BP 167/83
[2016-07-10 19:45] VITALS: BP 164/86
[2016-07-10 20:42] LABS: CKMB 112.8 U/L (0.0-3.6); CREATINE KINASE 82 UL (21-232); TROPONIN-I 0.048 ng/mL (0.000-0.060)
[2016-07-11 01:51] VITALS: BP 196/94
[2016-07-11 05:48] VITALS: BP 198/94
[2016-07-11 08:19] VITALS: BP 189/88
[2016-07-11 08:38] LABS: BASOPHILS 0.1 % (0-2); EOSINOPHILS 1.5 % (0-7); HEMATOCRIT 38.2 % (42.0-54.0); HEMOGLOBIN 11.9 g/dL (13.5-17.5); IMMATURE GRANULOCYTES 0.1 % (0-5); LYMPHOCYTES 11.5 % (15-50); MCH 27.6 pg (26.0-34.0); MCHC 31.2 g/dL (31.0-37.0); MCV 88.6 fL (80.0-100.0); MEAN PLATELET VOLUME 10.9 fL (7.4-10.4); MONOCYTES 8.2 % (2-11); NEUTROPHILS 78.6 % (40-80); PLATELET COUNT 142 10x3/uL (130-400); RBC 4.31 10x6/uL (4.20-6.10); RDW 13.9 % (11.5-14.5); WBC 6.7 10x3/uL (4.8-10.8)
[2016-07-11 08:54] LABS: CALCIUM 8.7 mg/dL (8.5-10.1); CARBON DIOXIDE 28.4 mmol/L (21.0-32.0); CREATININE - SERUM 1.2 mg/dL (0.6-1.3); POTASSIUM - SERUM 4.4 mmol/L (3.5-5.1)
[2016-07-11 11:52] VITALS: BP 159/77
--- NOTE | 2016-07-11 15:49 | OP ---
PATIENT NAME: AMBROSE PADILLA MEDICAL RECORD: [id number] :38 LOCATION:D.M2 D.2114 ADMISSION DATE:07/11/16 SURGEON: NARINDER SOUZA MD DATE OF OPERATION: 07/11/2016 PROCEDURES: 1. PTCA stent left circumflex. 2. Left heart catheterization. 3. Selective coronary angiography. 4. Left ventriculogram. INDICATIONS: Angina and coronary artery disease. PROCEDURE IN DETAIL: After informed consent was obtained and after detailed explanation of risks, benefits as well as alternative therapies, the patient elected to proceed with angiogram and angioplasty. The right femoral area was prepped and draped in normal sterile fashion. The right femoral artery was cannulated via modified Seldinger technique with placement of 6-Maori sheath. All catheters exchanged through this sheath. FINDINGS: Left ventriculogram was performed in standard 30 degree ELMORE view, reveals preserved cardiac wall motion, ejection fraction 50%. SELECTIVE CORONARY ANGIOGRAPHY: 1. Left main showed no significant angiographic disease. 2. Left anterior descending has previously placed stents, these are widely patent with no significant restenosis. No disease elsewhere throughout the LAD or its branches. 3. Right coronary has previously placed stents, these are widely patent with no significant restenosis. No disease elsewise throughout the RCA or its branches. 4. Left circumflex has previously placed stents. The stents are patent; however, proximal to the stent, there is 80% stenosis. PTCA STENT OF THE LEFT CIRCUMFLEX: The stent used was a 3.5 x 26 mm Resolute, taken to 17 atmospheres. Result was 0% residual stenosis. OVERALL IMPRESSION: Successful percutaneous transluminal coronary angioplasty stent of the left circumflex going from 80% initial stenosis to 0% residual. TRANSINT:[id number] Voice Confirmation ID: [id number] DOCUMENT ID: [id number] NARINDER SOUZA MD at 1549 CC: [id number] DICTATION DATE: 07/11/16 1028 COMMERCIAL SALES REPRESENTATIVE: 07/11/16 1045 [place] [address]
== END 2016-07-11 15:48 | disposition home or self-care (01) ==
LOC: D.ER 09:31 → D.M2 09:31 → D.OPS 09:31 → EDSTATUS 11:25 → D.M2 11:26 → OBSVTIME 07-11 10:30 → D.OPS 07-11 10:30 → D.M2 07-11 15:48
PROVIDERS: Emergency Medicine; ADMIT Internal Medicine Interventional Cardiology
DX: I25.119 Atherosclerotic heart disease of native coronary artery with unspecified angina pectoris (principal); I11.0 Hypertensive heart disease with heart failure; I50.9 Heart failure, unspecified; Z95.5 Presence of coronary angioplasty implant and graft; E11.9 Type 2 diabetes mellitus without complications; F03.90 Unspecified dementia, unspecified severity, without behavioral disturbance, psychotic disturbance, mood disturbance, and anxiety; G20 Parkinson's disease; J44.9 Chronic obstructive pulmonary disease, unspecified; F41.9 Anxiety disorder, unspecified; F32.9 Major depressive disorder, single episode, unspecified
CPT/HCPCS: 93458; C9600

== ENCOUNTER 2016-07-11 17:10 | Inpatient (IN) | payer MEDICARE ==
[~2016-07-11] VITALS: Ht 188 cm; Wt 118.7 kg
[2016-07-11 19:12] LABS: ANION GAP 13.4 mmol/L (8-16); CALCIUM 8.2 mg/dL (8.5-10.1); CARBON DIOXIDE 28.5 mmol/L (21.0-32.0); CREATININE - SERUM 1.5 mg/dL (0.6-1.3); POTASSIUM - SERUM 4.9 mmol/L (3.5-5.1)
[2016-07-11 19:17] LABS: BASOPHILS 0.1 % (0-2); EOSINOPHILS 0.7 % (0-7); HEMATOCRIT 38.5 % (42.0-54.0); HEMOGLOBIN 11.7 g/dL (13.5-17.5); IMMATURE GRANULOCYTES 0.2 % (0-5); LYMPHOCYTES 9.2 % (15-50); MCH 27.3 pg (26.0-34.0); MCHC 30.4 g/dL (31.0-37.0); MEAN PLATELET VOLUME 10.8 fL (7.4-10.4); MONOCYTES 6.8 % (2-11); RBC 4.28 10x6/uL (4.20-6.10); RDW 14.2 % (11.5-14.5); WBC 8.1 10x3/uL (4.8-10.8)
[2016-07-11 19:20] LABS: PLATELET COUNT 174 10x3/uL (130-400)
[2016-07-11 19:27] LABS: TROPONIN-I 0.164 ng/mL (0.000-0.060)
--- NOTE | 2016-07-11 20:45 | NUR ---
RECEIVED FROM ER, IV-LFA-SL, TELEMTRY ORDER, PT HAS OWN 02 AND CALL PHONE WITH HIM, BED IS LOW, SRX2, CALL LIGHT IN REACH, WILL CONTINUE PLAN OF CARE
[2016-07-11 23:29] VITALS: BMI 21.8
[2016-07-11 23:40] VITALS: BP 169/68
--- NOTE | 2016-07-12 00:53 | NUR ---
PT RESTING, PLACED ON FALL PRECAUTION, EXPLAINED HE HAD CATH TODAY AND WHEN HE GOT HOME HAD A SYNCOPE EPISODE, WE ARE JUST TRYING TO PROTECT HIM FROM FALLS, BOX ALARM IS ON, CALL LIGHT IN REACH, WILL CONTINUE TO MONITOR
--- NOTE | 2016-07-12 01:57 | NUR ---
OUTPUT 600
[2016-07-12 03:31] VITALS: BP 162/71
[2016-07-12 08:31] VITALS: BP 166/62
[2016-07-12 12:29] VITALS: BP 172/84
--- NOTE | 2016-07-12 12:32 | NUR ---
HIT ARM ON BEDSIDE TABLE AND TORE SKIN L FOREARM - DRSG APPLIED
[2016-07-12 13:30] VITALS: Ht 188 cm; Wt 118.7 kg
[2016-07-12 15:45] VITALS: BP 190/80
--- NOTE | 2016-07-12 16:31 | NUR ---
RATIONALE FOR SCD'S EXPLAINED. REFUSED SCD'S
--- NOTE | 2016-07-12 19:32 | NUR ---
RECEIVED REPORT, SON IN ROOM, PT ASKING TO TAKE SHOWER, REMOVED TELEMTRY AND WRAP IV, IV-LFA-SL,WILL CONTINUE PLAN OF CARE
[2016-07-12 20:00] VITALS: BP 175/67
[2016-07-13] VITALS: BP 196/94
--- NOTE | 2016-07-13 01:43 | NUR ---
ASSESSMENT COMPLETE, SEE FLOW SHEET, PT SLEEPING, BED IS LOW, SRX2, CALL LIGHT IN REACH, WILL CONTINUE TO MONITOR
--- NOTE | 2016-07-13 03:38 | NUR ---
FIELD REP AT BEDSIDE TO OBTAIN VITALS, WILL CONTINUE WITH PLAN OF CARE.
[2016-07-13 04:00] VITALS: BP 136/77
[2016-07-13 05:46] LABS: BASOPHILS 0.1 % (0-2); EOSINOPHILS 3.5 % (0-7); HEMATOCRIT 36.4 % (42.0-54.0); HEMOGLOBIN 11.4 g/dL (13.5-17.5); IMMATURE GRANULOCYTES 0.3 % (0-5); LYMPHOCYTES 16.1 % (15-50); MCH 27.7 pg (26.0-34.0); MCHC 31.3 g/dL (31.0-37.0); MCV 88.6 fL (80.0-100.0); MEAN PLATELET VOLUME 10.9 fL (7.4-10.4); PLATELET COUNT 162 10x3/uL (130-400); RBC 4.11 10x6/uL (4.20-6.10); RDW 13.9 % (11.5-14.5); WBC 7.6 10x3/uL (4.8-10.8)
[2016-07-13 06:12] LABS: ANION GAP 8.9 mmol/L (8-16); CALCIUM 8.2 mg/dL (8.5-10.1); CARBON DIOXIDE 31.1 mmol/L (21.0-32.0); CREATININE - SERUM 1.6 mg/dL (0.6-1.3)
--- NOTE | 2016-07-13 07:08 | NUR ---
AM ROUNDS- PT IN BED, REQUESTED A TOWEL TO BE SPREAD OUT ON THE FLOOR BY THE BATHROOM. DENIES ANY OTHER NEEDS AT THIS TIME. CALL LIGHT IN REACH, NAD NOTED, WILL CONTINUE TO MONITOR.
[2016-07-13 08:00] VITALS: BP 126/78
[2016-07-13 12:00] VITALS: BP 122/69
--- NOTE | 2016-07-13 13:29 | HP ---
PATIENT: AMBROSE PADILLA MEDICAL RECORD: [id number] ACCOUNT: [id number] LOCATION:[address] : 38 ADMISSION DATE: 07/11/16 HISTORY AND PHYSICAL EXAMINATION DATE OF SERVICE: 07/12/2016 DIAGNOSES: 1. Shortness of breath and pulmonary edema. 2. Cardiomyopathy. 3. Coronary artery disease. 4. Recent percutaneous transluminal coronary angioplasty stent of the left circumflex. 5. Hypertension. 6. Diabetes. HISTORY OF PRESENT ILLNESS: Mr. Padilla underwent PTCA stent yesterday as an outpatient. When he got home, he became very short of breath, presented to the Emergency Room and found to have pulmonary edema. He does have a cardiomyopathy, ischemic with moderately reduced ejection fraction. The cardiomyopathy is not new most likely with the IV fluids after the cardiac procedure, he went into congestive heart failure because of this and due to his chronic systolic dysfunction. PHYSICAL EXAMINATION: GENERAL APPEARANCE: Well-nourished, well-developed, appears stated age. Level of distress, comfortable. PSYCHIATRIC: Mental status, alert, normal affect. Orientation, oriented to time, place and person. EYES: Lids and conjunctiva, noninjected. No discharge, no pallor. ENT: Lips, teeth, gums, normal dentition. Oropharynx, no cyanosis, no pallor. NECK: Carotid arteries, bilateral normal upstroke, no bruits, no thrills. JUGULAR VEINS: No jugular venous pressure or distention. CERVICAL LYMPH NODES: Nontender, nonenlarged. THYROID: Not enlarged. Nontender. No nodules. LUNGS: Respiratory effort, unlabored. CHEST: Normal curvature. No thoracic deformity. No chest wall tenderness. Percussion, resonant. Auscultation, clear. No wheezes, no rales, no rhonchi. CARDIOVASCULAR: Precordial exam, nondisplaced. No heaves or pericardial thrills. Rate and rhythm, regular. Heart sounds, normal S1, normal S2. No S3, no gallop, no rub. Systolic murmur, not heard. Diastolic murmur, not heard. EXTREMITIES: No cyanosis, no edema. Peripheral pulses, full and equal in all extremities, except as noted. No bruits appreciated. ABDOMEN: Soft, nondistended. Normal aorta. No bruit. Nontender. No masses. Liver, nontender, no hepatomegaly. Spleen, nontender, no splenomegaly. MUSCULOSKELETAL: No joint tenderness. No joint swelling. No erythema. NEUROLOGICAL: Normal gait, normal strength, normal tone. SKIN: Warm and dry. REVIEW OF SYSTEMS: The patient reports easy bruising but reports no swollen glands. The patient reports no fever, no night sweats, no significant weight gain, no significant weight loss. No significant exercise tolerance. The patient reports no dry eyes, no irritation, no vision change. Patient reports no difficulty hearing and no ear pain. Patient reports no frequent nose bleeds or nose and sinus problems. Patient reports on arm pain on exertion. No HISTORY AND PHYSICAL [id number] AMBROSE PADILLA shortness of breath while lying down. No history of heart murmur. Patient reports no cough, no wheezing or coughing up blood. Patient reports no abdominal pain, no vomiting. Normal appetite. No diarrhea and not vomiting blood. No nausea and no constipation. Patient reports no incontinence. No difficulty urinating. No hematuria. No increased frequency. Patient reports no muscle aches. No weakness, no arthralgias, no back pain. No swelling of the extremities. Patient reports no abnormal mole, no jaundice, no rashes. Reports no loss of consciousness. No weakness and no numbness. No seizures, dizziness, or headaches. The patient reports no depression, no sleep disturbance, feeling safe in a relationship and no alcohol abuse. Patient reports on fatigue. Reports no runny nose or sinus pressure. No itching, no hives, and no frequent sneezing. OVERALL IMPRESSION: Marked improvement after IV diuresis. He still remains hypertensive. We will add Procardia XL to his medical regimen for his hypertension. We will not increase his beta-german as his heart rate is often in the 50s and 40s. He is on lisinopril. We will continue the IV Lasix, hopefully the heart failure and pulmonary edema will clear. TRANSINT:[id number] Voice Confirmation ID: [id number] DOCUMENT ID: [id number] NARINDER SOUZA MD at 1329 CC: [id number] DICTATION DATE: 07/12/16 1634 QUARTER SUPERVISOR: 07/12/16 1720 [place] [address]
[2016-07-13 16:22] VITALS: BP 162/92
--- NOTE | 2016-07-13 17:00 | NUR ---
Patient Name: AMBROSE PADILLA Admission Status: ER Accout number: [id number] Admission Date: 07-11-2016 : 1940 Admission Diagnosis:HEART FAILURE, UNSPECIFIED Attending: OLMAN Current LOS: 2 Anticipated DC Date: 07-15-2016 Planned Disposition: Home with Home Health Primary Insurance: MEDICARE A & B PLANNED EXTERNAL PROVIDER: [facility] Discharge Planning Comments: * Is the patient Alert and Oriented? Yes 0 * How many steps to enter\exit or inside your home? ELEVATOR 0 * PCP DR. MCCARTNEY 0 * Pharmacy [facility] 0 * Preadmission Environment Home Alone 0 * ADLs Independent 0 * Equipment Cane Other Oxygen Wheelchair 0 * Other Equipment POWER WHEELCHAIR HOME AND PORTABLE OXYGEN [facility] PATIENT - MEDICAL EQUIPMENT PROVIDER 0 * List name and contact numbers for known caregivers / representatives who currently or will assist patient after discharge: JHONATHAN PADILLA, SON, MAGEN PADILLA, BROTHER, BETH SOMMERS, DTR, 0 * Community resources currently utilized Home Health 0 * Please name any agencies selected above. [facility] - NURSING 0 * Additional services required to return to the preadmission environment? No 0 * Can the patient safely return to the preadmission environment? Yes 0 * Has this patient been hospitalized within the prior 30 days at any hospital? No 0 CM MET WITH PT IN ROOM TO DISCUSS DISCHARGE PLANNING AND NEEDS. PT REPORTS LIVING AT HOME INDEPENDENTLY AND ALONE. PT HAS ALL NEEDED MEDICAL EQUIPMENT FROM [facility] PATIENT. PT HAS [facility] FOR NURSING THE THERAPY SERVICES WERE RECENTLY COMPLETED. CM DISCUSSED AVAILABILITY OF HOME HEALTH, REHAB SERVICES AND MEDICAL EQUIPMENT. PT WOULD LIKE HOME HEALTH RESUMED, REPORTS HIS BROTHER WILL PICK HIM UP FOR DISCHARGE HOME TOMORROW. IMPORTANT MESSAGE FROM MEDICARE PROVIDED AND EXPLAINED. FOR DISCHARGE, NOTIFY [facility] AT [phone]; FAX DISCHARGE INFORMTION TO [facility] AT [phone]. CM TO FOLLOW AND ASSIST NEEDED. Clinical Trials Assistant: Anthony Mc
--- NOTE | 2016-07-13 19:33 | NUR ---
RECEIVED REPORT, PT RESTING, DENIES ANY NEEDS AT THIS TIME, 02-3L, IV-LFA-SL, [id number], DRESSING TO L. ARM. SORE ON L. KNEE, BED IS LOW, SRX2, CALL LIGHT IN REACH, WILL CONTINUE PLAN OF CARE
[2016-07-13 20:00] VITALS: BP 158/86
[2016-07-14] VITALS: BP 155/84
--- NOTE | 2016-07-14 02:04 | NUR ---
ASSESSMENT COMPLETE, SEE FLOWSHEET, PT SLEEPING, BED IS LOW, SRX1, CALL LIGHT IN REACH, WILL CONTINUE PLAN OF CARE
--- NOTE | 2016-07-14 03:46 | NUR ---
PT RESTING WELL WITHOUT C/O OR DISTRESS NOTED. NO NEEDS VOICED. CALL LIGHT WITHIN REACH. WILL MONITOR.
[2016-07-14 04:00] VITALS: BP 141/85
--- NOTE | 2016-07-14 07:39 | NUR ---
AM ROUNDS - PT IS SITTING ON THE SIDE OF THE BED, ALERT. DSG TO LEFT ARM. IV TO LEFT FA, SL. O2 AT 3L VIA NC. MONITOR SHOWING UNCON. AFIB, HR 102. BED AT LOWEST POSITION WITH SIDE RAILS UP X2. NO FUTHER NEEDS AT THIS TIME. WILL CONTINUE TO MONITOR
[2016-07-14 08:04] VITALS: BP 139/83
[2016-07-14 12:00] VITALS: BP 148/81
--- NOTE | 2016-07-14 12:57 | NUR ---
PT IS IN THE BED EATING LUNCH. PT HAS NO NEEDS AT THIS TIME.
[2016-07-14] MEDS ORDERED: NIFEDIPINE ER60 MG PO (14:14)
--- NOTE | 2016-07-14 14:37 | NUR ---
WRITTEN AND VERBAL D/C INSTRUCTIONS GIVEN TO PT. IV IN LEFT FA REMOVED. CATH TIP INTACT. PT TOLERATED WELL. WILL D/C
--- NOTE | 2016-07-14 14:40 | NUR ---
PT LEFT FLOOR VIA WHEELCHAIR WITH VOLUNTEER.
--- NOTE | 2016-07-14 15:03 | NUR ---
Patient Name: AMBROSE PADILLA Encounter No: [id number] : 1940 Primary Insurance: MEDICARE A & B Anticipated DC Date: 07-14-2016 Planned Disposition: Home with Home Health External Planned Provider: [facility] RESUMPTION LATE ENTRY: DCP follow-up note: CM RECEIVED DISCHARGE ORDER, SPOKE TO PT IN ROOM WHO IS IN AGREEMENT FOR DISCHARGE, BROTHER TO PICK HIM UP FOR TRANSPORT HOME TODAY. CM NOTIFIED MEY OF [facility] AT [phone]; FAXED DISCHARGE INFORMATION TO [facility] AT [phone]. Tanning Consultant: Anthony Mc
== END 2016-07-14 14:41 | disposition home health service (06) | DRG 293 ==
LOC: D.ER 17:10 → D.M2 18:29
PROVIDERS: Emergency Medicine; ADMIT Internal Medicine Interventional Cardiology
DX: I11.0 Hypertensive heart disease with heart failure (principal); I50.23 Acute on chronic systolic (congestive) heart failure; E11.9 Type 2 diabetes mellitus without complications; F03.90 Unspecified dementia, unspecified severity, without behavioral disturbance, psychotic disturbance, mood disturbance, and anxiety; J44.9 Chronic obstructive pulmonary disease, unspecified; Z99.81 Dependence on supplemental oxygen

== ENCOUNTER 2016-09-11 12:50 | Emergency (ER) | payer MEDICARE ==
[2016-07-12 13:30] VITALS: BMI 34.4
[~2016-09-11 12:50] MED LIST changes: +NIFEDIPINE ER60 MG PO
[2016-09-11 21:48] LABS: CKMB 12.6 U/L (0.0-3.6); CREATINE KINASE 418 UL (21-232)
[2016-09-11 21:50] LABS: TROPONIN-I 1.334 ng/mL (0.000-0.060)
== END 2016-09-11 15:27 | disposition home or self-care (01) ==
LOC: D.ER 12:50
PROVIDERS: Family Medicine
DX: S20.219A Contusion of unspecified front wall of thorax, initial encounter (principal); W19.XXXA Unspecified fall, initial encounter; Y93.89 Activity, other specified; Y92.89 Other specified places as the place of occurrence of the external cause; M54.2 Cervicalgia

== ENCOUNTER 2016-09-11 17:19 | Inpatient (IN) | payer MEDICARE ==
[~2016-09-11] VITALS: Ht 185.4 cm; Wt 129.3 kg
[2016-09-11 18:59] LABS: BASOPHILS 0.2 % (0-2); EOSINOPHILS 0.1 % (0-7); HEMATOCRIT 31.3 % (42.0-54.0); HEMOGLOBIN 9.3 g/dL (13.5-17.5); IMMATURE GRANULOCYTES 0.2 % (0-5); MCH 25.5 pg (26.0-34.0); MCHC 29.7 g/dL (31.0-37.0); MCV 85.8 fL (80.0-100.0); MEAN PLATELET VOLUME 10.5 fL (7.4-10.4); MONOCYTES 7.7 % (2-11); NEUTROPHILS 84.8 % (40-80); PLATELET COUNT 192 10x3/uL (130-400); RBC 3.65 10x6/uL (4.20-6.10); WBC 8.7 10x3/uL (4.8-10.8)
[2016-09-11 19:48] LABS: ALBUMIN 3.1 g/dL (3.4-5.0); ANION GAP 14.7 mmol/L (8-16); BILIRUBIN - TOTAL 0.34 mg/dL (0.2-1.3); CALCIUM 7.9 mg/dL (8.5-10.1); CARBON DIOXIDE 29.9 mmol/L (21.0-32.0); CREATININE - SERUM 3.8 mg/dL (0.6-1.3); POTASSIUM - SERUM 5.6 mmol/L (3.5-5.1); PROTEIN - SERUM 6.9 g/dL (6.4-8.2)
[2016-09-11 22:56] LABS: CREATINE KINASE 418 UL (21-232)
[2016-09-11 22:57] LABS: TROPONIN-I 1.333 ng/mL (0.000-0.060)
[2016-09-11 22:58] LABS: CKMB 12.6 U/L (0.0-3.6)
--- NOTE | 2016-09-11 23:30 | NUR ---
PT RECEIVED FROM ER. ADMITTED FOR CHF, AND RENAL FAILURE. DR GREGORIO AND DR GOMEZ HAVE BEEN CONSULTED BY ER. PT HAD A TROPONIN LEVEL OF 1.334. HAD BEEN IN ER PREVIOUSLY FOR A FALL, AND HAS SOME BRUISING AROUND A LARGE ABDOMINAL HERNIA. ACTIVE BOWEL SOUNDS IN ALL QUADRANTS, AND NO C/O PAIN. SOFT TO PALPATION. PT DOES HAVE CHRONIC BACK PAIN, AND HAS BEEN REPOSITIONED FOR COMEFORT AT THIS TIME. PT IS IN A-FIB AT A RATE OF 97 AT THIS TIME. WILL MONITOR THROUGHOUT SHIFT.
[2016-09-11 23:36] VITALS: BP 124/63; BMI 36.0
[2016-09-12] VITALS (26 sets, daily range): BP systolic 87–151; BP diastolic 46–79; Ht 185.4 cm; Wt 129.3 kg
--- NOTE | 2016-09-12 00:25 | NUR ---
PT IS ORIENTED TO PERSON PLACE TIME AND SITUATION THOUGH IS FORGETFUL AT TIMES. WILL CONTINUE TO MONITOR
--- NOTE | 2016-09-12 01:00 | NUR ---
PT NOW RESTING QUIETLY IN ROOM. NO FURTHER CHANGES IN STATUS AT THIS TIME. WILL CONTINUE TO MONITOR
--- NOTE | 2016-09-12 03:00 | NUR ---
REASSESSMENT COMPLETED. PT REPOSITIONED IN BED. SEE FLOWSHET FOR FULL DETAILS. SPOKE WITH RESPIRATORY. THEY WILL BE HERE FOR AN EKG LATER IN THE SHIFT. WILL FOLLOW UP.
[2016-09-12 05:36] LABS: TROPONIN-I 1.667 ng/mL (0.000-0.060)
--- NOTE | 2016-09-12 05:49 | NUR ---
PT ATTEMPTED TO URINATE, AND SPILLED URINAL ALL OVER SELF. LINEN CHANGE AND BEDBATH GIVEN.
[2016-09-12 05:51] LABS: BASOPHILS 0.1 % (0-2); EOSINOPHILS 1.2 % (0-7); HEMATOCRIT 30.4 % (42.0-54.0); HEMOGLOBIN 8.8 g/dL (13.5-17.5); IMMATURE GRANULOCYTES 0.3 % (0-5); LYMPHOCYTES 11.7 % (15-50); MCH 25.1 pg (26.0-34.0); MCHC 28.9 g/dL (31.0-37.0); MCV 86.9 fL (80.0-100.0); MEAN PLATELET VOLUME 10.5 fL (7.4-10.4); MONOCYTES 14.9 % (2-11); NEUTROPHILS 71.8 % (40-80); PLATELET COUNT 180 10x3/uL (130-400); RDW 15.2 % (11.5-14.5); WBC 7.6 10x3/uL (4.8-10.8)
[2016-09-12 06:14] LABS: ALBUMIN 2.9 g/dL (3.4-5.0); ANION GAP 15.6 mmol/L (8-16); BILIRUBIN - TOTAL 0.35 mg/dL (0.2-1.3); CALCIUM 7.8 mg/dL (8.5-10.1); CARBON DIOXIDE 28.6 mmol/L (21.0-32.0); CREATININE - SERUM 3.8 mg/dL (0.6-1.3); POTASSIUM - SERUM 5.2 mmol/L (3.5-5.1); PROTEIN - SERUM 6.8 g/dL (6.4-8.2)
--- NOTE | 2016-09-12 07:00 | NUR ---
REC'D REPORT AND RESUMED CARE, SLEEPING AROUSABLE TO VERBAL STIMULI, VSS, DENIES PAIN AT THIS TIME, ASSESSMENT COMPLETE PER FLOWSHEET, CALL LIGHT IN REACH, MODERATE ASSIST TO REPOSTION UP IN BED, NO NEEDS AT THIS TIME
--- NOTE | 2016-09-12 07:45 | NUR ---
BREAKFAST TRAY TO BEDSIDE, INDEPENDENT WITH SET UP AND EATING
--- NOTE | 2016-09-12 08:00 | NUR ---
150 CC URINE EMPTIED FROM URINAL
--- NOTE | 2016-09-12 08:40 | NUR ---
AM MEDS GIVEN WITHOUT DIFFICULTY, TOLERATED WITH SIPS OF WATER
[2016-09-12 10:08] LABS: APPEARANCE HAZY (CLEAR); BACTERIA MODERATE /hpf (NONE SEEN); BILIRUBIN NEGATIVE (NEGATIVE); COLOR DK YELLOW (YELLOW); EPITHELIAL CELLS 0-5 /hpf (0-5); GLUCOSE NEGATIVE (NEGATIVE); HYALINE CAST OCC /lpf (NONE SEEN); KETONE NEGATIVE (NEGATIVE); LEUKOCYTE ESTERASE TRACE (NEGATIVE); MUCUS <1+ /lpf (NONE SEEN); NITRITE NEGATIVE (NEGATIVE); PROTEIN NEGATIVE (NEGATIVE); UROBILINOGEN NORMAL (NORMAL); WHITE CELLS - URINE 0-5 /hpf (0-5)
--- NOTE | 2016-09-12 11:00 | NUR ---
SLEEPING WITH NO SIGNS OF DISTRESS, AROUSABLE TO VERBAL STIMULI, VSS, O2 VIA NC, NO ACUTE CHANGE FROM PREVIOUS ASSESSMENT
--- NOTE | 2016-09-12 11:35 | NUR ---
200 CC URINE TO URINAL
--- NOTE | 2016-09-12 12:01 | NUR ---
CHEST XRAY COMPLETED
--- NOTE | 2016-09-12 12:22 | NUR ---
LUNCH TRAY TO BEDSIDE, INDEPENDENT WITH SET UP AND EATING
[2016-09-12 12:23] LABS: CREATINE KINASE 263 UL (21-232); DIGOXIN 0.97 ng/mL (0.90-2.00); THYROID STIMULATING HORMONE 0.63 uIU/mL (0.36-3.74)
[2016-09-12 13:31] LABS: CKMB 16.1 U/L (0.0-3.6)
[2016-09-12 13:32] LABS: TROPONIN-I 1.668 ng/mL (0.000-0.060)
--- NOTE | 2016-09-12 14:35 | NUR ---
SWALLOW EVAL COMPLETED, RECOMMENDATION MADE FOR MECHANICAL SOFT WITH THIN LIQUIDS, PATIENT IS ENDENTULOUS AND PREFERS TO EAT WITHOUT DENTURES
--- NOTE | 2016-09-12 15:00 | NUR ---
ASSESSMENT COMPLETE, NO ACUTE CHANGE FROM PREVIOUS, BROTHER AT BEDSIDE, STATUS UPDATED VOICES NO NEEDS AT THIS TIME
--- NOTE | 2016-09-12 15:30 | NUR ---
300 CC EMPTIED FROM URINAL
--- NOTE | 2016-09-12 16:38 | NUR ---
SECOND CALL TO [facility]: CONSULT, PER LASHAWN VALLES NOTIFIED AND WILL SEND OUT SECOND PAGE
--- NOTE | 2016-09-12 16:57 | NUR ---
PC FROM BETH BASS APN, NEW ORDER WILL FOR BUPERNEX WILL BE GIVEN FOR PAIN
--- NOTE | 2016-09-12 17:38 | NUR ---
DR VALLES HERE FOR EVAL, NO NEW ORDERS AT THIS TIME
--- NOTE | 2016-09-12 18:44 | NUR ---
ATTEMPTS X2 TO RESITE PIV, WITHOUT RESULTS, PROCEDURE TOLERATED WITHOUT DIFFCULTY, LEFT AC PIV SITE ABD PAD PLACED AND WRAPPED WITH COBAN TO STABLIZED AREA, BED BATH GIVEN, OOB TO CHAIR WITH STAND BY ASSIST, BP 125/57, HR 104, CALL LIGHT IN REACH, NO NEEDS AT THIS TIME
--- NOTE | 2016-09-12 19:30 | NUR ---
REPORT REC'D AND CARE ASSUMED, REC'D PT SITTING UP IN CHAIR, ASSISTED X 2 BACK TO BED PER REQUEST, PT DISORIENTED TO TIME, GETS FRUSTRATED WITH NURSE WHEN ATTEMPTING TO ANSWER ORIENTATION QUESTIONS, LEFT A/C PIV WITH NS @ 100CC/HR, COBAN DRSG IN PLACE, O2 @ 6LITERS, LARGE ABDOMINAL HERNIA NOTED TO RLQ, PT REPORTS TENDERNESS TO PALPATION, BS ACTIVE X 4, PT MAEE, SR UP X 2, WILL MONITOR CLOSELY FOR CHANGES.
--- NOTE | 2016-09-12 20:00 | NUR ---
PT WANTING TO SIT UP IN SIDE OF BED, ASSISTED TO DO SO, PT INSTRUCTED NOT TO GET UP OOB, VERBALIZES UNDERSTANDING, CALL LIGHT IN REACH.
--- NOTE | 2016-09-12 20:40 | NUR ---
EVENING MEDS GIVEN, PT REMAINS UP ON SIDE OF BED, ASSISTED BACK TO BED AT THIS TIME, LIGHT TURNED OUT FOR PT TO REST
--- NOTE | 2016-09-12 22:00 | NUR ---
PT SITTING ON SIDE OF BED LOOKING FOR URINAL, URINAL ON BS TABLE, PT ASSISTED TO STAND TO VOID, VOIDED 200CC CONCENTRATED URINE, ASSISTED BACK TO BED, PT STATES " I JUST DON'T FEEL RIGHT", REQUEST BS BE CHECKED, FSBS 91, SNACK PROVIDED ON REQUEST
--- NOTE | 2016-09-12 22:45 | NUR ---
ROUTINE MEDS GIVEN, PT ASSISTED TO LIE BACK IN BED, HOB ADJUSTED FOR COMFORT, BP STABLE, WILL CONT TO MONITOR FOR CHANGES.
--- NOTE | 2016-09-12 23:30 | NUR ---
PT SITTING UP ON SIDE OF BED, STATES " I AM TRYING TO GET MY HEAD RIGHT IT HAS A DAY", REORIENTED TO TIME, URINAL AND CALL LIGHT IN REACH, VISIBLE TO NURSES STATION.
[2016-09-13] VITALS (15 sets, daily range): BP systolic 109–135; BP diastolic 45–87
--- NOTE | 2016-09-13 00:30 | NUR ---
PT'S BED PAD WET WITH URINE, PT ASSISTED TO STAND AND ATTEMPT TO VOID VIA URINAL, VOIDED 50CC CLEAR YELLOW URINE, SAMPLE OBTAINED TO SEND TO LAB FOR URINE CULTURE, PERICARE AND PARTIAL LINEN CHANGE GIVEN PROVIDED, PT REPOSITIONED UP IN BED FOR COMFORT, SR UP X 2, CALL LIGHT IN REACH.
--- NOTE | 2016-09-13 02:00 | NUR ---
PT ASSISTED WITH URINAL, DENIES FURTHER NEEDS, VSS.
--- NOTE | 2016-09-13 04:00 | NUR ---
PT CALLING FOR NURSE, ASSISTED PT UP TO SIDE OF BED TO VOID, ASSISTED PT WITH URINAL, VOIDED 175CC CLEAR YELLOW URINE, PT COMPLAINS OF UPPER ABDOMINAL PAIN, 0.1MG OF BUPRENEX GIVEN SLOW IVP FOR PAIN, PT ASSISTED BACK UP IN BED, SR UP X 2, CALL LIGHT IN REACH.
[2016-09-13 04:12] LABS: BASOPHILS 0.2 % (0-2); EOSINOPHILS 2.1 % (0-7); HEMATOCRIT 30.5 % (42.0-54.0); HEMOGLOBIN 8.8 g/dL (13.5-17.5); IMMATURE GRANULOCYTES 0.5 % (0-5); LYMPHOCYTES 11.7 % (15-50); MCH 25.3 pg (26.0-34.0); MCHC 28.9 g/dL (31.0-37.0); MCV 87.6 fL (80.0-100.0); MEAN PLATELET VOLUME 10.5 fL (7.4-10.4); MONOCYTES 11.7 % (2-11); NEUTROPHILS 73.8 % (40-80); PLATELET COUNT 155 10x3/uL (130-400); RBC 3.48 10x6/uL (4.20-6.10); RDW 15.2 % (11.5-14.5); WBC 6.6 10x3/uL (4.8-10.8)
[2016-09-13 04:30] LABS: ALBUMIN 2.8 g/dL (3.4-5.0); ANION GAP 12.5 mmol/L (8-16); BILIRUBIN - TOTAL 0.39 mg/dL (0.2-1.3); CALCIUM 7.5 mg/dL (8.5-10.1); CARBON DIOXIDE 31.1 mmol/L (21.0-32.0); CREATININE - SERUM 2.9 mg/dL (0.6-1.3); POTASSIUM - SERUM 4.6 mmol/L (3.5-5.1); PROTEIN - SERUM 6.9 g/dL (6.4-8.2)
--- NOTE | 2016-09-13 05:55 | NUR ---
PT SITTING UP ON SIDE OF BED, VSS, WILL MONITOR FOR CHANGES.
--- NOTE | 2016-09-13 06:30 | NUR ---
PT ASSISTED TO LIE BACK IN BED, AM PROTONIX GIVEN, NO VISITORS IN THIS AM, VSS
--- NOTE | 2016-09-13 07:30 | NUR ---
SHIFT ASSESSMENT VIA FLOWSHEET, SEE FOR DETAILS.
--- NOTE | 2016-09-13 08:30 | NUR ---
BREAKFAST TRAY PROVIDED. PT STATES HE NEEDS TO USE THE URINAL. PT PROCEEDED TO STAND, ATTEMPT TO USE URINAL AND VOIDED MOSTLY ON THE FLOOR.
--- NOTE | 2016-09-13 09:06 | NUR ---
PT'S BROTHER AT BEDSIDE, UPDATE PROVIDED. PT AWAKE AND CONVERSING WITH VISITOR. CON AFIB ON CM.
--- NOTE | 2016-09-13 10:20 | NUR ---
* Is the patient Alert and Oriented? Yes 0 * How many steps to enter\exit or inside your home? 0 0 * PCP Dr. Donovan 0 * Pharmacy [facility] on [address] 0 * Preadmission Environment Home Alone 0 * ADLs Partial Dependent 0 * Partial ADLs (Assistance needed) Ambulation 0 * Equipment Cane Hospital Bed Oxygen Rolling Walker Wheelchair 0 * Other Equipment Power Chair 0 * List name and contact numbers for known caregivers / representatives who currently or will assist patient after discharge: Son Mohsen Gupta [employer]iance [phone] Dtr - Mariia Peraltacesar [phone] Brother Mohsen Mcdonald Reliance [phone] 0 * Additional services required to return to the preadmission environment? Yes 0 * Can the patient safely return to the preadmission environment? Yes 0 * Has this patient been hospitalized within the prior 30 days at any hospital? No Patient Name: AMBROSE PADILLA Admission Status: ER Accout number: [id number] Admission Date: 09-11-2016 : 1940 Admission Diagnosis:ALTERED MENTAL STATUS, UNSPECIFIED Attending: AJAY Current LOS: 2 Planned Disposition: Home with Home Health Primary Insurance: MEDICARE A & B Discharge Planning Comments: CM met with patient to assess DC plans/needs. Also spoke with son, Alonso, via telephone. Patient lives alone at the [facility]. He requires assistance with mobility but is independent with other ADL's. His brother, Harry, drives him to MD appointments, shopping, etc. He uses a power chair primarily. He has had home health services in the past with [facility] but is not currently on service. He is agreeable to referral at discharge. CIPRIANO signed for [facility]. CM will follow & assist as needed. Puppet Engineer: Akua Caal
--- NOTE | 2016-09-13 10:45 | NUR ---
PT IN BED. CON AFIB ON CM. VOICES NO ADDITIONAL NEEDS AT THIS TIME, CALL LIGHT WITHIN REACH.
--- NOTE | 2016-09-13 12:30 | NUR ---
LUNCH TRAY PROVIDED. PT ASSISTED TO POSITION OF COMFORT. VOICES NO ADDITIONAL NEEDS AT THIS TIME. CALL LIGHT WITHIN REACH.
--- NOTE | 2016-09-13 15:37 | NUR ---
REPORT CALLED TO [facility].
--- NOTE | 2016-09-13 15:58 | NUR ---
PT TO ROOM 2129 VIA WHEELCHAIR. ALL BELONGINGS TRANSPORTED WITH PATIENT. SMALL BLACK FLIP PHONE IN PATIENT HAND AT TIME OF TRANSFER. CALL LIGHT WITHIN REACH.
--- NOTE | 2016-09-13 16:07 | NUR ---
PT RECIEVED TO ROOM ICU, INTRODUCED SELF AND PLACED NAME ON WHITE BOARD. RR EVEN AND UNLABORED. NC ON PT DELIVERING O2 AT 4L. BED IN LOWEST POSTION, CALL BASSETT IN REACH, WILL CTM.
--- NOTE | 2016-09-13 19:36 | NUR ---
RECEIVED REPORT, WILL ASSUME CARE OF PT, SLEEPING AT THIS TIME, BED IS LOW, SRX2, CALL LIGHT IN REACH, WILL CONTINUE PLAN OF CARE
--- NOTE | 2016-09-14 03:16 | NUR ---
ASSESSMENT COMPLETE, PT SLEEPING, BED IS LOW, SRX2, BOX ALARM IS ON, WILL CONTINUE PLAN OF CARE
[2016-09-14 06:08] LABS: BASOPHILS 0.2 % (0-2); EOSINOPHILS 1.8 % (0-7); HEMATOCRIT 32.4 % (42.0-54.0); HEMOGLOBIN 9.4 g/dL (13.5-17.5); IMMATURE GRANULOCYTES 0.3 % (0-5); LYMPHOCYTES 10.1 % (15-50); MCH 25.1 pg (26.0-34.0); MCV 86.6 fL (80.0-100.0); MONOCYTES 12.2 % (2-11); NEUTROPHILS 75.4 % (40-80); PLATELET COUNT 169 10x3/uL (130-400); RBC 3.74 10x6/uL (4.20-6.10); RDW 14.8 % (11.5-14.5); WBC 6.1 10x3/uL (4.8-10.8)
[2016-09-14 06:22] VITALS: BP 140/81
[2016-09-14 06:38] LABS: ALBUMIN 3.2 g/dL (3.4-5.0); ANION GAP 13.4 mmol/L (8-16); BILIRUBIN - TOTAL 0.58 mg/dL (0.2-1.3); CALCIUM 7.9 mg/dL (8.5-10.1); CARBON DIOXIDE 30.8 mmol/L (21.0-32.0); POTASSIUM - SERUM 4.2 mmol/L (3.5-5.1); PROTEIN - SERUM 7.3 g/dL (6.4-8.2)
[2016-09-14 06:40] LABS: CREATININE - SERUM 2.1 mg/dL (0.6-1.3)
--- NOTE | 2016-09-14 07:19 | NUR ---
PT SITTING UP IN BED WATCHING TV, DENIES NEEDS WILL CONT TO MONITOR.
[2016-09-14 08:27] VITALS: BP 112/66
--- NOTE | 2016-09-14 08:56 | NUR ---
Patient Name: AMBROSE PADILLA Encounter No: [id number] : 1940 Primary Insurance: MEDICARE A & B Anticipated DC Date: Planned Disposition: Home with Home Health External Planned Provider: [facility] DCP follow-up note: CM RECEIVED REPORT FROM RN BRENDAN MAO AFTER PT TRANSFEERRED TO FLOOR FROM ICU. CM MET WITH PT IN ROOM WHO IS IN AGREEMENT WITH DISCHARGE HOME AND HOME HEALTH WITH SP [facility], PT REPORTS HIS BROTHER WILL TRANSPORT HOME AT DISCHARGE. IMPORTANT MESSAGE FROM MEDICARE PROVIDED AND EXPLAINED. CM TO ARRANGE HOME HEALTH SERVICES WITH [facility] IF PHYSICIAN AGREES WITH NEED AND PROVIDES ORDERS. Anthony Mc, CASE MANAGEMENT
--- NOTE | 2016-09-14 10:20 | NUR ---
Nutrition Follow Up: Pt is eating 94% meal avg on a renal ADA mech soft diet with thin liquids. No BM since admit. Wt gain noted. Labs reviewed. Meds noted. Rec continue current diet. RD following.
[2016-09-14 12:05] VITALS: BP 117/55
[2016-09-14 16:43] VITALS: BP 138/70
--- NOTE | 2016-09-14 19:01 | NUR ---
PT SITTING UP ON SIDE OF BED FAMILY AT BEDSIDE VISITING DENIES NEEDS
--- NOTE | 2016-09-14 19:10 | NUR ---
SITTING ON SIDE OF BED. ALERT/ORIENTED X 4. DENIES PAIN OR ANY NEEDS. HAS 02 AT 3L/NC. RR EVEN U/L. IV IN L FA WITH NS INFUSING AT 30ML/HR. ORIENTED TO CL FOR ANY NEEDS.
[2016-09-14 20:00] VITALS: BP 149/45
--- NOTE | 2016-09-14 21:45 | NUR ---
ADMIN SCHED MEDS. CHECKED BS AT 108. NO INSULIN REQUIRED PER SLIDING SCALE. EMPTIED URINAL OF 200CC. REQUESTED LIGHTS OFF AND DOOR PARTIALY CLOSED. NO OTHER NEEDS VOICED.
[2016-09-15] VITALS: BP 144/75
[2016-09-15 04:00] VITALS: BP 97/70
[2016-09-15 06:24] LABS: BASOPHILS 0 % (0-2); EOSINOPHILS 1.6 % (0-7); HEMOGLOBIN 8.8 g/dL (13.5-17.5); IMMATURE GRANULOCYTES 0.2 % (0-5); LYMPHOCYTES 10.7 % (15-50); MCHC 29.3 g/dL (31.0-37.0); MCV 85.2 fL (80.0-100.0); MEAN PLATELET VOLUME 10.1 fL (7.4-10.4); MONOCYTES 12.8 % (2-11); NEUTROPHILS 74.7 % (40-80); PLATELET COUNT 161 10x3/uL (130-400); RBC 3.52 10x6/uL (4.20-6.10); RDW 14.8 % (11.5-14.5); WBC 5.1 10x3/uL (4.8-10.8)
[2016-09-15 06:49] LABS: ALBUMIN 2.8 g/dL (3.4-5.0); ANION GAP 11.2 mmol/L (8-16); BILIRUBIN - TOTAL 0.56 mg/dL (0.2-1.3); CALCIUM 7.8 mg/dL (8.5-10.1); CARBON DIOXIDE 29.5 mmol/L (21.0-32.0); CREATININE - SERUM 1.6 mg/dL (0.6-1.3); POTASSIUM - SERUM 3.7 mmol/L (3.5-5.1); PROTEIN - SERUM 6.9 g/dL (6.4-8.2)
--- NOTE | 2016-09-15 08:22 | NUR ---
ASSESSMENT COMPLETED. DENIES ANY NEEDS. 02 AT 4 L/M PER NC. LEFT FORE ARM IV WITH NS AT 30. UP AB GARIMA. ALERT AND ORIENTED. SR UP WITH CALL LIGHT IN REACH
[2016-09-15 08:58] VITALS: BP 119/49
--- NOTE | 2016-09-15 09:26 | NUR ---
UP ON SIDE OF BED. DENIES ANY NEEDS. CALL LIGHT IN REACH WITH SR UP. WILL MONITOR
--- NOTE | 2016-09-15 10:27 | NUR ---
RESTING QUIETLY NAD NOTED VISITING WITH FAMILY
[2016-09-15 11:55] VITALS: BP 143/72
--- NOTE | 2016-09-15 18:10 | NUR ---
UP ON SIDE OF BED. DENIES ANY NEEDS. CALL LIGHT IN REACH WITH SR UP. WILL MONITOR
--- NOTE | 2016-09-15 19:30 | NUR ---
PT IS RESTING IN BED WITH EYES OPEN. ALERT AND ORIENTED X 3. PT STATED: "IF I WAKE UP DOING DUMB STUFF, PLEASE WAKE ME UP." O2 IS ON @ 4 LPM PER NC. NO SOB NOTED. USING URINAL PRN. SR'S ARE UP X 3 IN BED. CALL LIGHT AND BEDSIDE TABLE ARE WITHIN EASY REACH.
[2016-09-15 20:00] VITALS: BP 151/82
--- NOTE | 2016-09-15 22:11 | NUR ---
PT IS RESTING QUIETLY IN BED WITH EYES CLOSED. RESPS ARE EVEN AND UNLABORED. NO ACUTE DISTRESS NOTED.
[2016-09-16] VITALS: BP 133/68
--- NOTE | 2016-09-16 00:10 | NUR ---
RESTING IN BED WITH EYES CLOSED.
[2016-09-16 04:00] VITALS: BP 165/83
--- NOTE | 2016-09-16 04:05 | NUR ---
PT IS RESTING QUIETLY IN BED WITH EYES CLOSED. NO ACUTE DISTRESS NOTED.
[2016-09-16 05:46] LABS: BASOPHILS 0.2 % (0-2); EOSINOPHILS 2.8 % (0-7); HEMATOCRIT 33.1 % (42.0-54.0); HEMOGLOBIN 9.8 g/dL (13.5-17.5); IMMATURE GRANULOCYTES 0.2 % (0-5); LYMPHOCYTES 12.8 % (15-50); MCH 25.3 pg (26.0-34.0); MCHC 29.6 g/dL (31.0-37.0); MCV 85.3 fL (80.0-100.0); MONOCYTES 12.6 % (2-11); NEUTROPHILS 71.4 % (40-80); PLATELET COUNT 149 10x3/uL (130-400); RBC 3.88 10x6/uL (4.20-6.10); RDW 14.8 % (11.5-14.5)
[2016-09-16 06:01] LABS: % SATURATION 6 % (15-55); IRON 22 ug/dl (35-150); TOTAL IRON BIND CAPACITY 335 ug/dl (260-445); UNSAT IRON BIND CAPACITY 313 ug/dl (150-375)
[2016-09-16 06:19] LABS: ALBUMIN 2.9 g/dL (3.4-5.0); ANION GAP 10.6 mmol/L (8-16); BILIRUBIN - TOTAL 0.4 mg/dL (0.2-1.3); CALCIUM 8.1 mg/dL (8.5-10.1); CREATININE - SERUM 1.4 mg/dL (0.6-1.3); POTASSIUM - SERUM 3.6 mmol/L (3.5-5.1); PROTEIN - SERUM 6.9 g/dL (6.4-8.2)
--- NOTE | 2016-09-16 07:36 | NUR ---
AM ROUNDS- PT IN BED, WITH EYES CLOSED. BED LOW AND WHEELS LOCKED, BED RAILS X2. CALL LIGHT IN REACH, NAD NOTED, WILL CONTINUE TO MONITOR.
--- NOTE | 2016-09-16 08:41 | NUR ---
AM MEDS GIVEN, PT UP TO SIDE OF BED, EATING BREAKFAST, DENIES ANY NEEDS AT THIS TIME. URINAL EMPTIED. CALL LIGHT IN REACH, NAD NOTED, WILL CONTINUE TO MONITOR.
[2016-09-16 09:34] VITALS: BP 154/78
--- NOTE | 2016-09-16 11:09 | NUR ---
BLOOD SUGAR OF 99, NO COVERAGE NEEDED PER S/S. PT IN BED, DENIES ANY NEEDS AT THIS TIME. FAMILY AT BEDSIDE, NAD NOTED, WILL CONTINUE TO MONITOR.
--- NOTE | 2016-09-16 11:48 | NUR ---
0.1MG OF BUPRENEX GIVEN FOR PAIN LEVEL OF 6/10. PT IN BED, DENIES ANY NEEDS AT THIS TIME. CALL LIGHT IN REACH, NAD NOTED, WILL CONTINUE TO MONITOR.
[2016-09-16 12:38] VITALS: BP 144/73
--- NOTE | 2016-09-16 16:34 | NUR ---
BLOOD SUGAR OF 138, NO COVERAGE NEEDED PER S/S. PT IN BED, DENIES ANY NEEDS AT THIS TIME. CALL LIGHT IN REACH,NAD NTOED, WILL CONTINUE TO MONITOR.
[2016-09-16 16:48] VITALS: BP 140/70
--- NOTE | 2016-09-16 19:04 | NUR ---
0.1MG OF BUPRENEX FOR PAIN LEVEL OF 7/10. NAD NOTED.
--- NOTE | 2016-09-16 19:30 | NUR ---
PT RESTING IN BED. 275ML OF CONCENTRATED YELLOW URINE IN URINAL. PT ON 4L O2 VIA NC. PT DENIES ANY NEEDS AT THIS TIME. NO S/S OF DISTRESS. WILL CPOC
[2016-09-16 20:00] VITALS: BP 160/82
--- NOTE | 2016-09-17 00:55 | NUR ---
PT A&O X4 BUT SEEMS TO BE CONFUSED WHEN SPEAKING ABOUT SITUATIONS. PT HAS A LARGE HERNIA ON RIGHT LOWER QUAD OF ABD. HAS 3 BRUISES ON ABD BY HERNIA. PT DENIES ANY PAIN AT THIS TIME. LEFT SINK LIGHT ON R/T PT CALLED AND STATED "I HAD A MOMENT WHEN I WOKE UP WHERE I WAS CONFUSED I DIDNT KNOW WHERE I WAS." PT WILL USE CALL LIGHT WHEN NEEDS ASSIST. PT DENIES ANY NEEDS AT THIS TIME. NO S/S OF DISTRESS WILL CPOC
[2016-09-17 04:00] VITALS: BP 95/68
--- NOTE | 2016-09-17 06:29 | NUR ---
PT SITTING ON SIDE OF BED. DENIES ANY NEEDS AT THIS TIME. NO S/S OF DISTRESS. BED LOW CALL LIGHT WITHIN REACH. WILL CPOC
[2016-09-17 07:14] LABS: BASOPHILS 0.3 % (0-2); EOSINOPHILS 3.5 % (0-7); HEMATOCRIT 32.8 % (42.0-54.0); HEMOGLOBIN 9.6 g/dL (13.5-17.5); IMMATURE GRANULOCYTES 0.2 % (0-5); LYMPHOCYTES 12.1 % (15-50); MCH 24.9 pg (26.0-34.0); MCHC 29.3 g/dL (31.0-37.0); MCV 85.2 fL (80.0-100.0); MONOCYTES 11.6 % (2-11); NEUTROPHILS 72.3 % (40-80); PLATELET COUNT 164 10x3/uL (130-400); RBC 3.85 10x6/uL (4.20-6.10); RDW 14.9 % (11.5-14.5); WBC 5.8 10x3/uL (4.8-10.8)
--- NOTE | 2016-09-17 07:24 | NUR ---
ASSESSMENT DONE. DENIES NEEDS.
[2016-09-17 07:32] LABS: ANION GAP 8.6 mmol/L (8-16); BILIRUBIN - TOTAL 0.48 mg/dL (0.2-1.3); CALCIUM 8.4 mg/dL (8.5-10.1); CREATININE - SERUM 1.3 mg/dL (0.6-1.3); POTASSIUM - SERUM 3.6 mmol/L (3.5-5.1); PROTEIN - SERUM 7.3 g/dL (6.4-8.2)
[2016-09-17 08:00] VITALS: BP 147/73
--- NOTE | 2016-09-17 10:09 | NUR ---
RESTS WITH EYES CLOSED. RESP UL ON . CALL LIGHT IN REACH. WILL CONT. PLAN OF CARE.
[2016-09-17 12:00] VITALS: BP 134/65
[2016-09-17 16:00] VITALS: BP 161/83
--- NOTE | 2016-09-17 17:47 | NUR ---
WITHOUT CHANGES OR DISTRESS NOTED AT THIS TIME. DENIES NEEDS.
--- NOTE | 2016-09-17 19:22 | NUR ---
PT RESTING IN BED. O2 ON AT 3.5L. PT DENIES ANY NEEDS. NO S/S OF DISTRESS. BED LOW AND CALL LIGHT WITHIN REACH. WILL CPOC
[2016-09-17 20:00] VITALS: BP 144/71
[2016-09-18] VITALS: BP 163/84
--- NOTE | 2016-09-18 02:43 | NUR ---
PT RESTING IN BED. RECIEVING A BREATHING TREATMENT. PT TALKS ABOUT BEING HAPPY ABOUT GOING HOME. PT C/O PAIN 07/22 GIVING ORDERED PAIN MED NOW,, PT DENIES ANY OTHER NEEDS NO S/S OF DISTRESS. BED LOW AND CALLLIGHT WITHIN REACH WILL CPOC
--- NOTE | 2016-09-18 04:54 | NUR ---
PT ASLEEP. RESPIRATIONS EVEN AND UNLABORED. NO S/S OF DISTRESS. BED LOW AND CALL LIGHT WITHIN REACH. WILL CPOC
--- NOTE | 2016-09-18 07:32 | NUR ---
AM ROUNDS- PT IN BED, ASKING WHAT TIME HE IS BEING D/C THIS AM. INFORMED PT THAT I DID NOT KNOW IF HE WAS GOING TO BE D/C TODAY BUT THAT I WOULD FIND OUT AND LET HIM KNOW. CALL LIGHT IN REACH, BED LOW AND WHEELS LOCKED, BEDSIDE RAILS X2. O2 AT 2.5L NC. NAD NOTED, WILL CONTINUE TO MONITOR.
[2016-09-18 08:00] VITALS: BP 144/56
--- NOTE | 2016-09-18 08:26 | NUR ---
AM MEDS GIVEN AT THIS TIME. PT UP TO SIDE OF BED, EATING BREAKFAST, DENIES ANY NEEDS AT THIS TIME. CALL LIGHT IN REACH, NAD NOTED, WILL CONTINUE TO MONITOR.
--- NOTE | 2016-09-18 11:15 | NUR ---
BLOOD SUGAR OF 90, NO COVERAGE NEEDED PER S/S. PT UP TO SIDE OF BED, DENIES ANY NEEDS AT THIS TIME. CALL LIGHT IN REACH, NAD NOTED, WILL CONTINUE TO MONITOR.
--- NOTE | 2016-09-18 13:37 | NUR ---
PROVIDED VERBAL AND WRITTEN DISCHARGE TEACHING TO PT. PT VERBALIZED UNDERSTANDING REGARDING DICHARGE TEACHING. PT WILL NOTIFY NURSE OR PATIENT CASE COORDINATOR WHEN RIDE IS HERE TO PICK HIM UP. PT DENIES ANY NEEDS AT THIS TIME. CALL LIGHT IN REACH, NAD NOTED, WILL CONTINUE TO MONITOR.
--- NOTE | 2016-09-18 13:59 | NUR ---
PT LEFT UNIT VIA WHEELCHAIR, NAD NOTED.
--- NOTE | 2016-09-20 11:21 | NUR ---
BRENDAN SPOKE WITH MEY MUELLER AT [facility] AND VERIFIED THAT THE AGENCY DID ADMIT PATIENT 09/19/16.
--- NOTE | 2016-09-20 11:35 | NUR ---
Patient Name: AMBROSE PADILLA Encounter No: [id number] : 1940 Primary Insurance: MEDICARE A & B Anticipated DC Date: Planned Disposition: Home with Home Health External Planned Provider: [facility] LATE ENTRY FROM 09-18-16, 1254 HOURS. DCP follow-up note: CM RECEIVED DISCHARGE ORDER; REVIEWED CHART, SPOKE TO HOMER BASS AND OBTAINED HOME HEALTH ORDER. CM MET WITH PT IN ROOM TO DISCUSS DISCHARGE NEEDS AND PLANNING. CM DISCUSSED AVAILABILITY OF HOME HEALTH, REHAB SERVICES AND MEDICAL EQUIPMENT. PT WANTS HOME HEALTH WITH [facility], REPORTS HIS BROTHER TO TRANSPORT HOME AT DISCHARGE TODAY. IMPORTANT MESSAGE FROM MEDICARE PROVIDED AND EXPLAINED. CM CALLED [facility], , SPOKE TO GUY AND PROVIDED REFERRAL INFORMATION FOR ADMIT TOMORROW. CM FAXED REFERRAL TO [facility] AT [phone]. PT NOTIFIED, DENIES FURTHER DISCHARGE NEEDS. Anthony Mc, CASE MANAGEMENT
== END 2016-09-18 14:08 | disposition home health service (06) | DRG 682 ==
LOC: D.ER 17:19 → D.CVICU 22:48 → D.M2 22:48
PROVIDERS: Emergency Medicine; Family Medicine; Internal Medicine Nephrology; ADMIT Family Medicine
DX: N17.0 Acute kidney failure with tubular necrosis (principal); I50.23 Acute on chronic systolic (congestive) heart failure; N39.0 Urinary tract infection, site not specified; G20 Parkinson's disease; F02.80 Dementia in other diseases classified elsewhere, unspecified severity, without behavioral disturbance, psychotic disturbance, mood disturbance, and anxiety; E11.9 Type 2 diabetes mellitus without complications; I11.0 Hypertensive heart disease with heart failure; J44.9 Chronic obstructive pulmonary disease, unspecified; I48.91 Unspecified atrial fibrillation; I25.10 Atherosclerotic heart disease of native coronary artery without angina pectoris; D64.9 Anemia, unspecified; E87.5 Hyperkalemia; E83.51 Hypocalcemia; Z91.81 History of falling; F32.9 Major depressive disorder, single episode, unspecified; F41.9 Anxiety disorder, unspecified; Z95.5 Presence of coronary angioplasty implant and graft; Z72.0 Tobacco use

== ENCOUNTER 2016-10-02 14:04 | Inpatient (IN) | payer MEDICARE ==
[~2016-10-02] VITALS: Ht 185.4 cm; Wt 127.0 kg
--- NOTE | ~2016-10-02 | EC ---
PATIENT:AMBROSE PADILLA DATE OF SERVICE: 10/04/16 SEX: M MEDICAL RECORD: [id number] DATE OF : [birth year] LOCATION:D.M2 D.211 AGE OF PATIENT: 75 ADMISSION DATE: 10/04/16 REFERRING PHYSICIAN: INTERPRETING PHYSICIAN: PAULINO FERNANDES MD ECHOCARDIOGRAM REPORT ECHO CHARGES 4 ECHO COMPLETE CLINICAL DIAGNOSIS: AFIB HX OF CAD/STENTS ECHOCARDIOGRAPHIC MEASUREMENTS (adult normal given) AC root (d.<3.7cm) 4.2 cm LV Septum d (<1.2 cm> 1.0 cm Valve Excursion 1.5 cm LV Septum (systole) 1.2 cm Left Atria (s.<4.0cm> 5.1 cm LVPW d(<1.2cm) 1.4 cm RV (d.<2.3cm) 4.7 cm LVPW (sytole) 1.5 cm LV diastole(<5.6CM) 6.7 cm MV E-F(>70mm/sec) cm LV systole 5.7 cm LVOT Diameter 1.4 cm MV exc.(>10mm) 1.3 cm Est.ejection fraction (50-75%) % Pericardial Effusion N DOPPLER: LVIT cm/sec A 44.0 cm/sec E 143 cm/sec LA cm/sec RVSP 72 mmHg LVOT 100 cm/sec AOP1/2T m/s Asc. Ao 192 cm/sec RVOT 90 cm/sec RA cm/sec PA 128 cm/sec AV Gradient Peak 14.41mmHg AV Mean 8.40 mmHg AV Area 0.3 cm MV Gradient Peak 12.20mmHg MV Mean 3.89 mmHg MV Area cm COMMENTS: Health Promotion Coordinator: Nicole ISAAC Express Manager: 4 Dr. Fernandes TAPE# PACS DATE OF SERVICE: 10/05/2016 PROCEDURE: Transthoracic echocardiogram. FINDINGS: 1. Image quality is adequate. 2. The left ventricle shows complex wall motion consistent with underlying bundle branch block and dyssynchronous wall motion; however, on top of that, he does have wall motion abnormalities and a dilated left ventricle. There appears to be some contractile reserve; however, given the patient is in AFib, he has ECHOCARDIOGRAM REPORT [id number] AMBROSE PADILLA had some periods of pauses of RR intervals and upon a long pause, he will have actually a return of some of his function. The overall ejection fraction is in the range of 30% to 40% depending on the RR interval. 3. The right ventricle is dilated and there is hypokinesis in the right ventricular free wall. 4. The tricuspid valve structurally appears to be normal. It is not as well visualized and there is moderate tricuspid regurgitation. There is a fairly good envelope on the tricuspid valve itself and we were looking at approximately 60 mmHg. Right ventricular systolic pressure is indicating moderate pulmonary hypertension. 5. The aortic valve is poorly visualized and the peak gradient is not significantly elevated. It is in the 14-20 mm range; however, the 2D planimetry of the valve does look possibly stenotic and would at least say there is moderate aortic stenosis. 6. The mitral valve, although difficult to visualize does not show any obvious structural abnormalities. There is severe eccentric posteriorly directed mitral regurgitation. 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 The patient's right-sided elevation of his pressures may be consistent with a left-sided failure. TRANSINT:[id number] Voice Confirmation ID: [id number] DOCUMENT ID: [id number] PAULINO FERNANDES MD CC: [id number] DICTATION DATE: 10/05/16 1620 FIELD CROP GROWER: 10/05/16 1569 ADM IN [facility] [address] [id number]
[~2016-10-02 14:04] MED LIST changes: +POTASSIUM CHLO10 ME1 PO
--- NOTE | 2016-10-02 14:16 | NUR ---
TRANSFER FROM ADMISSIONS BY W/[facility]. OREINTED TO ROOM. CALL LIGHT IN REACH. WILL CONT. PLAN OF CARE.
[2016-10-02] MEDS ORDERED: PRINIVIL20 MG PO (14:42)
[2016-10-02] MEDS ORDERED: LANTUS INSULIN10 ML SC (14:44)
[2016-10-02] MEDS ORDERED: HYDROCODONE-APA1 TAB PO (14:45)
[2016-10-02 14:54] VITALS: BP 156/77; BMI 37.0
[2016-10-02 15:40] LABS: BASOPHILS 0 % (0-2); EOSINOPHILS 1.5 % (0-7); HEMATOCRIT 31.8 % (42.0-54.0); HEMOGLOBIN 9.3 g/dL (13.5-17.5); IMMATURE GRANULOCYTES 0.2 % (0-5); MCH 24.6 pg (26.0-34.0); MCHC 29.2 g/dL (31.0-37.0); MCV 84.1 fL (80.0-100.0); MEAN PLATELET VOLUME 10.1 fL (7.4-10.4); MONOCYTES 7.4 % (2-11); NEUTROPHILS 79.9 % (40-80); RBC 3.78 10x6/uL (4.20-6.10); RDW 15.4 % (11.5-14.5); WBC 6.1 10x3/uL (4.8-10.8)
[2016-10-02 15:49] LABS: PLATELET COUNT 205 10x3/uL (130-400)
[2016-10-02 16:42] LABS: ALBUMIN 3.1 g/dL (3.4-5.0); ANION GAP 13.7 mmol/L (8-16); BILIRUBIN - TOTAL 0.38 mg/dL (0.2-1.3); CALCIUM 8.2 mg/dL (8.5-10.1); CARBON DIOXIDE 32.2 mmol/L (21.0-32.0); CREATININE - SERUM 1.9 mg/dL (0.6-1.3); DIGOXIN 0.27 ng/mL (0.90-2.00); POTASSIUM - SERUM 3.9 mmol/L (3.5-5.1); PROTEIN - SERUM 6.9 g/dL (6.4-8.2)
[2016-10-02 17:43] VITALS: BP 156/77
--- NOTE | 2016-10-02 18:13 | NUR ---
URINE COLECTED AND TAKEN TO LAB.
[2016-10-02 18:19] LABS: APPEARANCE CLEAR (CLEAR); BILIRUBIN NEGATIVE (NEGATIVE); COLOR YELLOW (YELLOW); GLUCOSE NEGATIVE (NEGATIVE); KETONE NEGATIVE (NEGATIVE); LEUKOCYTE ESTERASE NEGATIVE (NEGATIVE); NITRITE NEGATIVE (NEGATIVE); PROTEIN TRACE mg/dL (NEGATIVE); SPECIFIC GRAVITY 1.015 (1.005-1.020); UROBILINOGEN NORMAL (NORMAL)
[2016-10-02 20:00] VITALS: BP 139/86
--- NOTE | 2016-10-02 21:48 | NUR ---
PAGE AND RETURN CALL FROM BETH BASS APN. REPORTED PT'S RESTLESSNESS, FLAILING ARMS, UNABLE TO LAY STILL, PULLING OUT IV. DISCUSSED THAT PT NORMALLY TAKES HIS [place]IN[place]S MEDS THREE TIMES DAILY AND FAMIL HAS NO IDEA IF HE HAS EVEN HAD A DOSE TODAY. RECIEVED ORDERS FOR NOW DOSE OF SINEMET AND NOW DOSE OF IM ATIVAN TO HELP CALM PATIENT DOWN.
--- NOTE | 2016-10-03 04:56 | NUR ---
PT HAS BEEN RESTLESS AND HARD TO KEEP PUT IN HIS BED THE ENTIRE NIGHT. HIS DAUGHTER STAYED AT BEDSIDE TO KEEP HIM SAFE. BED ALARM ON BED ACTIVATED. PT WITH REPEAT EPISODES OF INVOLUNTAR MOVEMENTS THAT HE SEEMS TO HAVE NO CONTROL OVER. HE PULLED OUT HIS IV AND NO ATTEMPT HAS BEEN MADE TO RESITE DUE TO THE IMPULSIVE SWINGING OF ARMS/LEGS AND CONTSTANT MOVEMENT AND TRYING TO GET UP AND DOWN ALL OVER THE BED.
[2016-10-03 05:11] VITALS: BP 157/82
[2016-10-03 06:12] LABS: BASOPHILS 0.2 % (0-2); EOSINOPHILS 0.3 % (0-7); HEMATOCRIT 33.5 % (42.0-54.0); HEMOGLOBIN 9.7 g/dL (13.5-17.5); IMMATURE GRANULOCYTES 0.2 % (0-5); LYMPHOCYTES 10.5 % (15-50); MCH 24.4 pg (26.0-34.0); MCV 84.4 fL (80.0-100.0); MEAN PLATELET VOLUME 10.2 fL (7.4-10.4); MONOCYTES 5.4 % (2-11); NEUTROPHILS 83.4 % (40-80); PLATELET COUNT 242 10x3/uL (130-400); RBC 3.97 10x6/uL (4.20-6.10); RDW 15.4 % (11.5-14.5); WBC 6.3 10x3/uL (4.8-10.8)
[2016-10-03 06:20] LABS: HEMOGLOBIN A1C 6.3 % (4.8-6.0)
[2016-10-03 06:35] LABS: ALBUMIN 3.1 g/dL (3.4-5.0); BILIRUBIN - TOTAL 0.43 mg/dL (0.2-1.3); CALCIUM 8.3 mg/dL (8.5-10.1); CARBON DIOXIDE 33.7 mmol/L (21.0-32.0); CREATININE - SERUM 1.9 mg/dL (0.6-1.3); POTASSIUM - SERUM 3.7 mmol/L (3.5-5.1); PROTEIN - SERUM 7.4 g/dL (6.4-8.2)
--- NOTE | 2016-10-03 07:56 | NUR ---
PT IS AAOX4 AT THIS TIME RESP UNLABORED SKIN W/D COLOR WNL LARGE ABDOMINAL HERNIA NOTED PT DENIES ANY NEEDS AT THIS TIME NAD NOTED
[2016-10-03 09:27] VITALS: BP 164/95
--- NOTE | 2016-10-03 11:45 | NUR ---
FSBS 121
[2016-10-03 13:44] VITALS: Ht 185.4 cm; Wt 127.0 kg
[2016-10-03 16:31] VITALS: BP 105/46
--- NOTE | 2016-10-03 17:10 | NUR ---
FSBS 131
[2016-10-03 17:59] VITALS: BP 138/84
[2016-10-03 20:00] VITALS: BP 127/67
[2016-10-04 01:10] VITALS: BP 114/54
[2016-10-04 05:58] LABS: BASOPHILS 0 % (0-2); EOSINOPHILS 0.3 % (0-7); HEMOGLOBIN 9.5 g/dL (13.5-17.5); IMMATURE GRANULOCYTES 0.2 % (0-5); LYMPHOCYTES 11.3 % (15-50); MCH 24.3 pg (26.0-34.0); MCHC 28.8 g/dL (31.0-37.0); MCV 84.4 fL (80.0-100.0); MEAN PLATELET VOLUME 10.3 fL (7.4-10.4); MONOCYTES 10.1 % (2-11); NEUTROPHILS 78.1 % (40-80); PLATELET COUNT 212 10x3/uL (130-400); RBC 3.91 10x6/uL (4.20-6.10); RDW 15.3 % (11.5-14.5); WBC 6.6 10x3/uL (4.8-10.8)
[2016-10-04 06:10] LABS: ANION GAP 8.9 mmol/L (8-16); CALCIUM 8.3 mg/dL (8.5-10.1); CARBON DIOXIDE 34.9 mmol/L (21.0-32.0); CREATININE - SERUM 1.7 mg/dL (0.6-1.3); POTASSIUM - SERUM 3.8 mmol/L (3.5-5.1)
[2016-10-04 08:32] VITALS: BP 148/76
[2016-10-04 11:59] VITALS: BP 130/68
--- NOTE | 2016-10-04 14:03 | CN ---
PATIENT NAME:AMBROSE CORTES MEDICAL RECORD: [id number] : [birth year] LOCATION:[facility] D.2117 ADMIT DATE: 10/02/16 ACCOUNT: [id number] CONSULTING PHYSICIAN: BUBBA KANG MD REFERRING PHYSICIAN: PAULINO DONOVAN DO DATE OF CONSULTATION: 10/02/2016 Pulmonary Consultation CONSULT REQUESTING PHYSICIAN: Trey Cook MD. REASON FOR CONSULTATION: Pneumonia, acute exacerbation of chronic obstructive pulmonary disease and mental status changes. HISTORY OF PRESENT ILLNESS: Mr. Cortes is a 75-year-old gentleman, who is now very confused. The history was taken by talking to the patient's daughter. According to the daughter, he was not wearing his oxygen then he was confused and agitated, taken to Dr. Donovan's office. The patient has worsening swelling of the lower extremities. He was also coughing with white color sputum production. There were no fever and chills noted. PAST MEDICAL HISTORY: 1. COPD. 2. Congestive heart failure, possible diastolic dysfunction. 3. Parkinson disease. 4. Hypertension. 5. Gastroesophageal reflux disease. 6. Peripheral neuropathy. 7. Type 2 diabetes mellitus. 8. Hyperlipidemia. 9. Morbid obesity. PAST SURGICAL HISTORY: 1. Cholecystectomy. 2. Herniorrhaphy. 3. Knee replacement. ALLERGIES: ALLERGIC TO CODEINE AND ROCEPHIN. PRESENT MEDICATIONS: On FiveCubitstech was reviewed. PERSONAL AND SOCIAL HISTORY: The patient lives alone. He is an ex-smoker. He is a nondrinker. FAMILY HISTORY: Noncontributory. REVIEW OF SYSTEMS: The details are not obtainable. PHYSICAL EXAMINATION: GENERAL: Now, the patient is lying comfortably in bed. He is not in acute distress, but the patient is very confused. VITAL SIGNS: The blood pressure is 156/77, pulse is 112, respirations 20, temperature 97.3 and SpO2 is 93% on 4 liters nasal cannula. HEENT: Conjunctivae pink, sclerae nonicteric. NECK: Supple. No JVD. CONSULT REPORT [id number] AMBROSE CORTES CHEST: Excursion is minimal on both sides. There are bilateral crackles. No wheezing. HEART: Rhythm regular, normal sound, no murmur. ABDOMEN: Soft. Bowel sounds present. No hepatosplenomegaly. RECTAL: Deferred. EXTREMITIES: No cyanosis and no clubbing. There is 2+ pedal edema. SKIN: Warm, normal turgor. CENTRAL NERVOUS SYSTEM: The patient is awake and alert, but he is very confused and agitated. There is no obvious cranial nerve abnormality. LABORATORY DATA: CBC: The WBC is 6.1, hemoglobin 9.3, hematocrit 31.8 and platelet count 205. Chemistry: Sodium 144, potassium 3.9, BUN is 47, creatinine 1.9 and glucose 122. AST 33, ALT 17 and albumin is 3.1. IMPRESSION: 1. Dluia-ef-fipdjhy hypoxic respiratory failure. 2. Pulmonary edema, possible bilateral pneumonia, possible community-acquired pneumonia, possible aspiration. 3. Acute mental status changes, possible metabolic encephalopathy. 4. Acute exacerbation of chronic obstructive pulmonary disease. 5. History of congestive heart failure, possible chronic diastolic dysfunction. 6. Chronic kidney disease. 7. Parkinson disease. 8. Gastroesophageal reflux disease. RECOMMENDATION: Continue supplemental oxygen. Start him on albuterol and ipratropium nebulizer, Brovana, budesonide nebulizer and methylprednisolone IV. Start him on Levaquin IV. Change the Bumex to 2 mg IV q.12 hourly. Check the proBNP and ammonia level. Follow up the CT scan of the head. Dr. Cook, thank you for involving me in the care of Mr. Cortes. TRANSINT:[id number] Voice Confirmation ID: [id number] DOCUMENT ID: [id number] BUBBA KANG MD at 1403 CC: TREY COOK MD [id number] DICTATION DATE: 10/02/161757 EXTENSION SERVICE ADVISOR: 10/02/16 190 ADM IN [facility] [address] [place] [address]
--- NOTE | 2016-10-04 14:44 | NUR ---
TELEMETRY CAF. UD CONT. PER RT. WILL CONT. PLAN OF CARE.
[2016-10-04 15:24] VITALS: BP 146/54
--- NOTE | 2016-10-04 19:27 | NUR ---
RESUMED CARE OF PT, LYING IN BED RESPIRATIONS EVEN AND UNLABORED ON 4LPM VIA NC. 112 UCAF ON TELEMETRY. LEFT HAND SALINE LOCKED. NO NEEDS AT THIS TIME, CALL LIGHT IN REACH. WILL CONTINUE TO MONITOR. SEE NURSE ASSESSMENT.
[2016-10-04 20:00] VITALS: BP 145/71
--- NOTE | 2016-10-05 01:07 | NUR ---
CALL LIGHT IN REACH. WILL CONTINUE TO MONITOR.
[2016-10-05 05:11] VITALS: BP 132/77
[2016-10-05 05:52] LABS: BASOPHILS 0 % (0-2); EOSINOPHILS 0 % (0-7); HEMATOCRIT 31.9 % (42.0-54.0); HEMOGLOBIN 9.3 g/dL (13.5-17.5); IMMATURE GRANULOCYTES 0.3 % (0-5); LYMPHOCYTES 8.6 % (15-50); MCH 24.3 pg (26.0-34.0); MCHC 29.2 g/dL (31.0-37.0); MCV 83.5 fL (80.0-100.0); MEAN PLATELET VOLUME 10.8 fL (7.4-10.4); MONOCYTES 9.3 % (2-11); NEUTROPHILS 81.8 % (40-80); PLATELET COUNT 211 10x3/uL (130-400); RBC 3.82 10x6/uL (4.20-6.10); RDW 15.2 % (11.5-14.5); WBC 7.2 10x3/uL (4.8-10.8)
[2016-10-05 06:15] LABS: ANION GAP 8.5 mmol/L (8-16); CALCIUM 8.5 mg/dL (8.5-10.1); CARBON DIOXIDE 36.9 mmol/L (21.0-32.0); CREATININE - SERUM 1.8 mg/dL (0.6-1.3)
[2016-10-05 06:17] LABS: POTASSIUM - SERUM 4.4 mmol/L (3.5-5.1)
[2016-10-05 08:33] VITALS: BP 147/81
--- NOTE | 2016-10-05 09:59 | NUR ---
TELEMETRY UCAF. HR 111. RESP UL ON 02 4L NC. CALL LIGHT IN REACH. WILL CONT. PLAN OF CARE.
[2016-10-05 12:01] VITALS: BP 143/82
--- NOTE | 2016-10-05 12:57 | NUR ---
Nutrition follow-up: Diet: consistent CHO mechanical soft with nectar thick liquids PO intake 100% of last 3 meals Labs reviewed Wt: 280# Pt working with speech; not happy with nectar thick liquids. RDN following.
--- NOTE | 2016-10-05 13:22 | NUR ---
Patient Name: AMBROSE PADILLA Encounter No: [id number] : 1940 Primary Insurance: MEDICARE A & B Anticipated DC Date: 10-06-2016 Planned Disposition: Prison Facility External Planned Provider: [facility], MEDICARE REHAB BED DCP follow-up note: CM RECEIVED CALL FROM TANISHA OF [facility], , WHO REPORTS THEY HAVE AVAILABLE BED AND WILL ACCEPT PT TOMORROW 10-06-16, FOR REHAB SERVICES. PT AND BROTHER DON IN ROOM NOTIFIED. PT IN AGREEMENT WITH DISCHARGE PLAN. IMPORTANT MESSAGE FROM MEDICARE PROVIDED AND EXPLAINED. FOR DISCHARGE ON OR AFTER 10-06-16, NURSE REPORT TO BE CALLED TO [facility], , FAX DISCHARGE INFORMATION TO [facility] AT [phone]. [facility] TO ARRANGE VAN TRANSPORTATION. Anthony Mc, CASE MANAGEMENT
[2016-10-05 15:32] VITALS: BP 134/72
[2016-10-05 19:00] VITALS: BP 124/67
--- NOTE | 2016-10-05 19:35 | NUR ---
RESUMED CARE OF PT, LYING IN BED RESPIRATIONS EVEN AND UNLABORED ON 4LPM VIA NC. 106 UCAF ON TELEMETRY. LEFT HAND SALINE LOCKED. NO NEEDS AT THIS TIME. WILL CONTINUE TO MONITOR. SEE NURSE ASSESSMENT.
[2016-10-06] VITALS: BP 145/75
[2016-10-06 05:33] LABS: BASOPHILS 0 % (0-2); EOSINOPHILS 0 % (0-7); HEMATOCRIT 32.1 % (42.0-54.0); HEMOGLOBIN 9.2 g/dL (13.5-17.5); IMMATURE GRANULOCYTES 0.2 % (0-5); LYMPHOCYTES 8.4 % (15-50); MCH 23.8 pg (26.0-34.0); MCHC 28.7 g/dL (31.0-37.0); MCV 82.9 fL (80.0-100.0); MEAN PLATELET VOLUME 10.4 fL (7.4-10.4); MONOCYTES 9.2 % (2-11); NEUTROPHILS 82.2 % (40-80); PLATELET COUNT 180 10x3/uL (130-400); RBC 3.87 10x6/uL (4.20-6.10); WBC 6.1 10x3/uL (4.8-10.8)
[2016-10-06 05:47] LABS: ANION GAP 8.1 mmol/L (8-16); CALCIUM 8.2 mg/dL (8.5-10.1); CARBON DIOXIDE 36.7 mmol/L (21.0-32.0); CREATININE - SERUM 1.8 mg/dL (0.6-1.3); POTASSIUM - SERUM 3.8 mmol/L (3.5-5.1)
[2016-10-06 08:00] VITALS: BP 158/90
[2016-10-06] MEDS ORDERED: COREG6.25 MG PO (10:33)
[2016-10-06] MEDS ORDERED: BROVANA15 MCG/2 M INH (10:33)
[2016-10-06] MEDS ORDERED: IPRAT-ALBUT 0.5-3 ML UPD (10:33)
[2016-10-06] MEDS ORDERED: SINEMET CR 50-1 EACH PO (10:34)
[2016-10-06] MEDS ORDERED: PULMICORT0.5 MG/21 UPD (10:35)
[2016-10-06] MEDS ORDERED: LEVAQUIN500 MG PO (10:37)
[2016-10-06] MEDS ORDERED: PREDNISONE10 MG PO (10:37)
--- NOTE | 2016-10-06 11:36 | NUR ---
Patient Name: AMBROSE PADILLA Encounter No: [id number] : 1940 Primary Insurance: MEDICARE A & B Anticipated DC Date: 10-06-2016 Planned Disposition: Longterm Facility External Planned Provider: :[facility], MEDICARE REHAB BED DCP follow-up note: CM RECEIVED DISCHARGE ORDER, SPOKE TO PT WHO REPORTED THAT HE IS WILLING FOR DISCHARGE TODAY, FAMILY IS AWARE. CM CALLED JORDAN OF [facility], THEY WILL ARRANGE VAN TRANSPORT. CM FAXED DISCHARGE INFORMATION TO [facility] AT [phone]. NURSE REPORT TO BE CALLED TO SHARLA OF [facility], , [facility] TO ARRANGE VAN TRANSPORTATION. Anthony Mc, CASE MANAGEMENT
--- NOTE | 2016-10-06 11:46 | NUR ---
IV AND TELEMETRY DCD. DC PLANS CALLED TO [facility]. UNDERSTANDING VOICED.
--- NOTE | 2016-10-06 13:19 | NUR ---
LEAVING FOR [facility] BY W/C.
== END 2016-10-06 13:19 | DRG 189 ==
LOC: D.M2 14:04 → OBSVTIME 19:00 → D.M2 10-04 13:39
PROVIDERS: Family Medicine; Internal Medicine Pulmonary Disease; ADMIT Family Medicine
DX: J96.21 Acute and chronic respiratory failure with hypoxia (principal); J18.9 Pneumonia, unspecified organism; G93.41 Metabolic encephalopathy; I50.43 Acute on chronic combined systolic (congestive) and diastolic (congestive) heart failure; J44.0 Chronic obstructive pulmonary disease with (acute) lower respiratory infection; J44.1 Chronic obstructive pulmonary disease with (acute) exacerbation; F05 Delirium due to known physiological condition; I13.0 Hypertensive heart and chronic kidney disease with heart failure and stage 1 through stage 4 chronic kidney disease, or unspecified chronic kidney disease; I42.9 Cardiomyopathy, unspecified; E78.5 Hyperlipidemia, unspecified; E11.40 Type 2 diabetes mellitus with diabetic neuropathy, unspecified; K21.9 Gastro-esophageal reflux disease without esophagitis; I48.91 Unspecified atrial fibrillation; I27.2 Other secondary pulmonary hypertension; I34.0 Nonrheumatic mitral (valve) insufficiency; G20 Parkinson's disease; I16.0 Hypertensive urgency; N18.9 Chronic kidney disease, unspecified; E11.22 Type 2 diabetes mellitus with diabetic chronic kidney disease; R51 Headache; I25.10 Atherosclerotic heart disease of native coronary artery without angina pectoris

== ENCOUNTER 2016-11-02 14:58 | Outpatient (CLI) | payer MEDICARE ==
[~2016-11-02] VITALS: Ht 185.4 cm; Wt 127.3 kg
[~2016-11-02 14:58] MED LIST changes: +BROVANA15 MCG/2 M INH; +COREG6.25 MG PO; +LEVAQUIN500 MG PO; +PREDNISONE10 MG PO; +PRINIVIL20 MG PO; +PULMICORT0.5 MG/21 UPD
[2016-11-02 15:42] VITALS: BP 121/63; Ht 185.4 cm; Wt 127.3 kg
--- NOTE | 2016-11-02 19:42 | NUR ---
BLOOD INFUSING TRANFER TO [id number] REPORT CALLED
--- NOTE | 2016-11-02 19:44 | NUR ---
BLOOD STILL INFUSING UNIT ONE NO REACTION NOTED
--- NOTE | 2016-11-03 07:23 | NUR ---
RECEIVED INFORMATION FROM THE VP [employer] THAT THE LONG TERM WOULD NOT ACCEPT THE PATIENT BACK AFTER HIS OUTPATIENT BLOOD INFUSION. CALLED AND SPOKE TO CHANDU AT [facility] ([phone]) AND AFTER BEING ON HOLD FOR 5 MINUTES, SHE CAME BACK ON THE LINE AND SAID THAT I WOULD HAVE TO CALL BACK AND TALK TO THE SUPERVISOR [employer] AFTER 0800.
--- NOTE | 2016-11-03 07:24 | NUR ---
PT RECIVED 1 UNIT OF BLOOD UNDER MY CARE. BLOOD ENDED AT 2245. PT TOLERATED WELL. UPON COMPLETION OF BLOOD PT WAS READY TO BE DISCHARGED. SPOKE WITH STAFF AT [facility] ABOUT PT TRANSPORT AND WAS TOLD THAT THEIR CHAIRMAN & CEO WAS SICK AND UNABLE TO COMPLETE THE TRANSFER. INFORMED STAFF THAT PT COULD BE TRANSFERRED BY AMBULANCE BUT ARRANGEMENTS WOULD HAVE TO BE MADE BY THEM. WAS TOLD BY [facility] STAFF THAT THEY WERE NOT WILLING TO ARRANGE TRANSPORT VIA AMBULANCE. [facility] STAFF INFORMED THAT PT COULD STAY HERE AT THE HOSPITAL UNTIL 0800. [facility] STAFF SAID THAT WAS ACCEPTABLE AND THAT THEY WOULD BE HERE TO PICK HIM UP THEN.
--- NOTE | 2016-11-03 08:07 | NUR ---
NATALIA CALLED FROM [facility] STATING PT WAS SUPPOSED TO BE TRANSFERRED BACK LAST NIGHT AFTER TRANSFUSION HOWEVER THERE WAS SOME KIND OF MISCOMMUNICATION AND IT DIDNT HAPPEN. SHE NOW STATES THEIR TRANSPORTATION VAN IS IN [place] AND HE WILL NEED TO GO BACK VIA AMBULANCE AND THEY HAVE HIM QUALIFIED. D/C PTS L.FA PIV WITH CATHETER TIP FULLY INTACT. OUTPATIENT DISCHARGE TEACHING PROVIDED AND COPY WAS HANDED TO PT AND OUR COPY HAS BEEN SIGNED AND PLACED IN CHART. RR NONLABORED WITH NC @4L PT STATES HE CHRONICALLY WEARS AND HE HAS HIS OWN PORTABLE TANK ALONG WITH HIS W/C FROM DC. WILL CALL [facility] FOR TRANSPORTATION. NO FURTHER NEEDS.
--- NOTE | 2016-11-03 08:14 | NUR ---
CALLED [employer] AND SPOKE WITH IRENA SHE STATES SHE WILL CALL [facility] AND VERIFY THEY ARE PAYING FOR IT PT IS AMBULATORY AND DOESNT MEET REQUIREMENTS THEN SHE WILL SEND ONE OUR WAY. PT HAS BELONGINGS COLLECTED AND IS READY TO GO.
--- NOTE | 2016-11-03 08:49 | NUR ---
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 NO FURTHER NEEDS.
== END 2016-11-03 08:50 ==
LOC: D.OPS 14:58 → D.M2 20:00 → D.OPS 11-03 08:50
DX: D64.9 Anemia, unspecified (principal)

== ENCOUNTER 2016-11-13 03:49 | Inpatient (IN) | payer MEDICARE ==
[2016-11-13] VITALS (19 sets, daily range): BP systolic 87–157; BP diastolic 47–75; BMI 40.9
[2016-11-13 04:55] LABS: BASOPHILS 0.2 % (0-2); EOSINOPHILS 0.9 % (0-7); HEMATOCRIT 28.3 % (42.0-54.0); HEMOGLOBIN 8.3 g/dL (13.5-17.5); IMMATURE GRANULOCYTES 0.2 % (0-5); LYMPHOCYTES 9.6 % (15-50); MCH 24.4 pg (26.0-34.0); MCHC 29.3 g/dL (31.0-37.0); MCV 83.2 fL (80.0-100.0); MEAN PLATELET VOLUME 10.2 fL (7.4-10.4); MONOCYTES 8.1 % (2-11); PLATELET COUNT 172 10x3/uL (130-400); RDW 17.8 % (11.5-14.5); WBC 5.8 10x3/uL (4.8-10.8)
[2016-11-13 05:09] LABS: ALBUMIN 2.8 g/dL (3.4-5.0); ANION GAP 10.9 mmol/L (8-16); BILIRUBIN - TOTAL 0.4 mg/dL (0.2-1.3); CALCIUM 8.1 mg/dL (8.5-10.1); CREATININE - SERUM 3.2 mg/dL (0.6-1.3); POTASSIUM - SERUM 5.9 mmol/L (3.5-5.1); PROTEIN - SERUM 6.2 g/dL (6.4-8.2)
[2016-11-13 05:17] LABS: TROPONIN-I 0.018 ng/mL (0.000-0.060)
[2016-11-13 05:42] LABS: APPEARANCE CLEAR (CLEAR); BILIRUBIN NEGATIVE (NEGATIVE); COLOR YELLOW (YELLOW); GLUCOSE NEGATIVE (NEGATIVE); KETONE NEGATIVE (NEGATIVE); NITRITE NEGATIVE (NEGATIVE); PROTEIN NEGATIVE (NEGATIVE); SPECIFIC GRAVITY 1.015 (1.005-1.020); UROBILINOGEN NORMAL (NORMAL)
[2016-11-13 05:51] LABS: UDS - AMPHET NEGATIVE QUAL (NEGATIVE); UDS - BARB NEGATIVE QUAL (NEGATIVE); UDS - BENZO NEGATIVE QUAL (NEGATIVE); UDS - COCAINE NEGATIVE QUAL (NEGATIVE); UDS - OPIATE POSITIVE QUAL (NEGATIVE); UDS - PCP NEGATIVE QUAL (NEGATIVE); UDS - THC NEGATIVE QUAL (NEGATIVE)
[2016-11-13] MEDS ORDERED: LANTUS INSULIN10 ML SC (09:55)
--- NOTE | 2016-11-13 10:10 | NUR ---
0805-REC'D PT TO ICU, INTUBATED 100% FI02 BVM. VENT SETTINGS PER RT. FSBS 134 AT PRESENT, D10 AT 50CC;HR L WRIST INFUSING W/O PROBLEMS. DIPROVAN AT 40MCG/KG/MIN. DR KANG AT BS. WILL REPETE K IN [address] KANG SPOKE TO PT'S BROTHER AND BROTHER STATES THAT PT IS A DNR.
--- NOTE | 2016-11-13 19:13 | NUR ---
PATIENT WAS ADMITTED FROM [facility] THIS AM. ADMITTED W/ CHF, RESPIRATORY FAILURE, ARF AND HYPOGLYCEMIA. INTUBATED IN THE ER. ??? OF DNR STATUS. PLAN TO WEAN OFF VENTILATOR. PATIENT WAS ADMITTED TO [facility] 10/06/16 TO A SKILLED BED. FAMILY CONTACTS MAGEN PADILLA- BROTHER- [phone] ABIMAEL- DAUGHTER - [phone] JHONATHAN SON- [phone] CM TO FOLLOW TO ASSIST W/ DISCHARGE PLANNING.
--- NOTE | 2016-11-13 19:20 | NUR ---
SHIFT ASSESSMENT COMPLETE. PT IS INTUBATED WITH DIPRIVAN INFUSING @ 55 MCG/KG/MIN. HE IS ABLE TO OPEN HIS EYES TO SPEECH, BUT UNABLE TO FOLLOW COMMANDS. ETT 8.0, 24 CM LIP LINE LEFT. VENT SETTINGS: A/C RATE 14, TIDAL VOLUME 600, FIO2 35%, PEEP 5.0. O2 SAT IS 98%. PERRLA, 3 MM, BRISK REACTION TO LIGHT. OGT IN PLACE, SUPLENA INFUSING @ 20 ML/HR, RESIDUAL OF 10 ML. S1S2 AUDIBLE, HR 95, CONTROLLED A-FIB. CRACKLES HEARD BILAT THROUGHOUT ALL LOBES. RADIAL AND PEDAL PULSES PALP WITH GENERALIZED EDEMA NOTED. BS HYPOACTIVE X4, BULDGING ON THE R SIDE. RODRIGUEZ CATH INTACT DRAINING CONCENTRATED URINE. SKIN IS WARM, DRY, AND PALE. BUTTOCKS AND L LATERAL CHEST HAS BRUISING NOTED. L FOOT 2-3RD TOE HAS SCABS/SORES WITH BANDAGES AND R FOOT 2-5TH TOE HAS SCABS/SORES WITH BANDAGES. L WRIST PIV INFUSING DIPRIVAN, D10 @ 75 ML/HR, AND AN ABX. R WRIST INFUSING DOBUTAMINE @ 5 MCG/KG/MIN. VSS. ORAL CARE PROVIDED. REPOSITIONED FOR COMFORT. WILL CONT WITH POC.
--- NOTE | 2016-11-13 21:00 | NUR ---
NO CHANGES NOTED. VSS. ORAL CARE PROVIDED. REPOSITIONED FOR COMFORT. WILL CONT WITH POC.
--- NOTE | 2016-11-13 23:10 | NUR ---
REASSESSMENT COMPLETE. BS 130. PT IS ABLE TO OPEN EYES WHEN CALLED BY NAME. HE IS UNABLE TO FOLLOW COMMANDS AT THIS TIME. REPOSITIONED FOR COMFORT. ORAL CARE PROVIDED. HR 84 CONTROLLED A-FIB, BP 112/57. NO ACUTE DISTRESS NOTED. WILL CONT TO MONITOR.
[2016-11-14] VITALS (25 sets, daily range): BP systolic 102–157; BP diastolic 46–96
--- NOTE | 2016-11-14 01:10 | NUR ---
PT RESTING WITH NO SIGNS OF ACUTE DISTRESS NOTED. ORAL CARE PROVIDED, REPOSITIONED FOR COMFORT. FSBS 155. WILL CONT WITH POC.
--- NOTE | 2016-11-14 03:30 | NUR ---
REASSESSMENT COMPLETE. BP 124/55, HR 84 CONTROLLED A-FIB, TEMP 99.4 AXILLARY. PT FEELS WARM TO TOUCH. FOLDED BACK BLANKETS AND REPOSITIONED FOR COMFORT. ORAL CARE PROVIDED. BLOOD SUGAR 134. SUPLENA INFUSING @ 30 ML/HR. HE IS NO LONGER ABLE TO OPEN HIS EYES TO SPEECH. DECREASED DIPRIVAN TO 45 MCG/KG/MIN. PT IS TOLERATING IT WELL. NO SIGNS OF ACUTE DISTRESS NOTED. WILL CONT WITH POC.
[2016-11-14 04:02] LABS: BASOPHILS 0 % (0-2); EOSINOPHILS 0.2 % (0-7); HEMATOCRIT 27.1 % (42.0-54.0); HEMOGLOBIN 8.1 g/dL (13.5-17.5); IMMATURE GRANULOCYTES 0.1 % (0-5); LYMPHOCYTES 6.5 % (15-50); MCH 24.3 pg (26.0-34.0); MCHC 29.9 g/dL (31.0-37.0); MEAN PLATELET VOLUME 10.3 fL (7.4-10.4); MONOCYTES 9.2 % (2-11); PLATELET COUNT 166 10x3/uL (130-400); RBC 3.34 10x6/uL (4.20-6.10)
[2016-11-14 04:11] LABS: MCV 81.1 fL (80.0-100.0); WBC 8.6 10x3/uL (4.8-10.8)
[2016-11-14 04:20] LABS: ALBUMIN 2.2 g/dL (3.4-5.0); ANION GAP 13.3 mmol/L (8-16); BILIRUBIN - TOTAL 0.45 mg/dL (0.2-1.3); CALCIUM 7.7 mg/dL (8.5-10.1); CARBON DIOXIDE 25.9 mmol/L (21.0-32.0); CREATININE - SERUM 2.8 mg/dL (0.6-1.3); MAGNESIUM - SERUM 2.4 mg/dL (1.8-2.4); POTASSIUM - SERUM 5.2 mmol/L (3.5-5.1); PROTEIN - SERUM 5.5 g/dL (6.4-8.2)
--- NOTE | 2016-11-14 05:00 | NUR ---
VSS. REPOSITIONED FOR COMFORT. PARITAL BED BATH GIVEN. RODRIGUEZ CARE PROVIDED. ORAL CARE PROVIDED. NO SIGNS OF ACUTE DISCOMFORT. BED IN LOWEST POSITION. WILL CONT WITH POC.
--- NOTE | 2016-11-14 06:14 | NUR ---
BROTHER AT BEDSIDE. UPDATED ON PT STATUS. HE HAS NO FURTHER QUESTIONS AT THIS TIME. WILL CONT WITH POC.
--- NOTE | 2016-11-14 07:00 | NUR ---
SHIFT ASSESSMENT COMPLETED, SEDATED ON VENT, VSS, PUPILS EQUAL AND REACTIVE, ON PROPOFOL AT 35MCG, DOBUTAMINE 5MCG, NS AT 10, PIV TO RIGHT WRIST, OGT IN PLACE SUPLENA AT 30ML/HR, WILL CONTINUE TO MONITOR
--- NOTE | 2016-11-14 09:00 | NUR ---
PT EUNICEED, KERRY, SPOKE WITH PT NATHALIA IN ROOM WHO REQUESTS TO TALK TO DR BARRON, HE IS AWARE, NO SINGS OF PAIN, WILL CONTINUE TO MONITOR
--- NOTE | 2016-11-14 10:50 | NUR ---
Wound care: Primary RN requestion evaluation of wounds on toes. Noted Right #2,3 and Left #2 wrapped with Xeroform gauze. Removed and cleansed well with wound shallot cleaner/patted dry. R #2 - 1cm x 1cm x 0.2cm Wound bed yellow and white no drainage/odor noted R #3 - 2cm x 2cm Wound bed 50% yellow 50% scab -no drainage/odor R #5 - 1.5cm x 1.5cm dry scab L #2 - upper 1cm x 1cm yellow wound bed L #2 - lower 1cm x 0.5cm yellow wound bed L #3 - scab After cleansing and drying, applied Xeroform gauze to all areas. Will continue monitoring as needed.
--- NOTE | 2016-11-14 11:00 | NUR ---
PT REPOSITIONED, VSS, NO SIGNS OF PAIN, DR KANG SPOKE WITH FAMILY, DAUGHTER STATED SHE WOULD TALK WITH HER BROTHER AND DISCUSS TERMINAL EXTUBATION, WILL CONTINUE TO MONTJAYSHREE
--- NOTE | 2016-11-14 13:04 | NUR ---
PT REPOSITIONED, VSS, NO SIGNS OF PAIN, WILL CONTINUE TO MONITOR
--- NOTE | 2016-11-14 15:02 | NUR ---
PT REPOSITIONED, BED BATH AND TOTAL LINEN CHANGE, VSS, NO SIGNS OF PAIN, WILL CONTINUE TO MONITOR
--- NOTE | 2016-11-14 17:17 | NUR ---
PT REPOSITIONED, VSS, NO SIGNS OF PAIN, DAUGHTER, SON AND BROTHER DISCUSSING TERMINAL EXTUBATION PT DID NOT WISH TO "LIVE ON MACHINES", WILL CONTNUE TO MONITOR
--- NOTE | 2016-11-14 19:30 | NUR ---
REPORT RECIEVED ASSESSMENT COMPLETED. SEE FLOW SHEET FOR FURTHER DETAILS. ORAL CARE DONE. PT POSITIONED FOR COMFORT WILL CONTINUE TO MONITOR.
--- NOTE | 2016-11-14 21:00 | NUR ---
PT FAMILY AT BEDSIDE UPDATE PROVIDED. PT POSITIONED FOR COMFORT WILL CONTINUE TO MONITOR.
--- NOTE | 2016-11-14 23:00 | NUR ---
REASSESSMENT COMPLETED. NO ACUTE CHANGES AT THIS TIME. ORAL CARE DONE. PT POSITIONED FOR COMFORT WILL CONTINUE TO MONITOR PT.
[2016-11-15] VITALS (17 sets, daily range): BP systolic 93–152; BP diastolic 54–81
--- NOTE | 2016-11-15 01:00 | NUR ---
ORAL CAARE DONE. PT POSITIONED FOR COMFORT WILL CONTINUE TO MONITOR PT.
--- NOTE | 2016-11-15 03:00 | NUR ---
REASSSESSMENT COMPLETED. SEE FLOW SHEET FOR FURTHER DETAILS.
--- NOTE | 2016-11-15 05:00 | NUR ---
PT REPOSITIONED FOR COMFORT ORAL CARE DONE. WILL CONTINUE TO MONITOR PT.
[2016-11-15 05:06] LABS: BASOPHILS 0.1 % (0-2); EOSINOPHILS 0.6 % (0-7); HEMATOCRIT 26.9 % (42.0-54.0); HEMOGLOBIN 8.6 g/dL (13.5-17.5); IMMATURE GRANULOCYTES 0.3 % (0-5); LYMPHOCYTES 8.6 % (15-50); MCH 25.7 pg (26.0-34.0); MCV 80.3 fL (80.0-100.0); MEAN PLATELET VOLUME 10.5 fL (7.4-10.4); MONOCYTES 11.4 % (2-11); PLATELET COUNT 150 10x3/uL (130-400); RBC 3.35 10x6/uL (4.20-6.10); RDW 18.3 % (11.5-14.5); WBC 7.3 10x3/uL (4.8-10.8)
[2016-11-15 05:37] LABS: ALBUMIN 2.1 g/dL (3.4-5.0); ANION GAP 12.5 mmol/L (8-16); BILIRUBIN - TOTAL 0.8 mg/dL (0.2-1.3); CALCIUM 7.6 mg/dL (8.5-10.1); CARBON DIOXIDE 26.1 mmol/L (21.0-32.0); CREATININE - SERUM 2.4 mg/dL (0.6-1.3); MAGNESIUM - SERUM 2.2 mg/dL (1.8-2.4); POTASSIUM - SERUM 4.6 mmol/L (3.5-5.1); PROTEIN - SERUM 5.5 g/dL (6.4-8.2)
--- NOTE | 2016-11-15 07:15 | NUR ---
PT SEDATED ON VENTILATOR, VSS, NO SIGNS OF PAIN, OGT WITH SUPLENA AT 30ML/HR, PIV TO LEFT AND RIGHT WRIST, PROPOFOL AT 40MCG, DOBUTAMINE AT 5MCG, NS KVO, RODRIGUEZ DRAINING CONCENTRATED URINE, REPOSITIONED, WILL CONTINUE TO MONITOR
--- NOTE | 2016-11-15 09:19 | NUR ---
TOTAL BED BATH AND LINEN CHANGE, REPOSITIONED SPOKE WITH FAMILY WHO WISH TO EXTUBATE PT,
--- NOTE | 2016-11-15 10:29 | NUR ---
SPOKE WITH DAUGHTER, SON AND BROTHER IN DETAIL AND THEY SAID THAT PT WOULD NOT WANT TO BE INTUBATED AND THEY WANT TERMINAL EXTUBATION, DR KANG SPOKE WITH FAMILY WELL,
--- NOTE | 2016-11-15 10:55 | NUR ---
restraints removed upon extubation
--- NOTE | 2016-11-15 10:58 | NUR ---
pt extubated 1055 per family request
--- NOTE | 2016-11-15 11:53 | NUR ---
IV MEDICATIONS OFF, FAMILY AT BEDSIDE, SPO2 DROPPING INTO 70S
--- NOTE | 2016-11-15 13:19 | NUR ---
PT HEART RATE DROPPED INTO 20S, SPO2 DROPPING INTO 50-60S, FAMILY AT BEDSIDE, WILL CONTINUE GIVING ATIVAN PER FAMILY REQUEST TO KEEP PT COMFORTABLE
--- NOTE | 2016-11-15 13:28 | NUR ---
PT WITH NO RESPIRATIONS, NO HEART RATE ON MONITOR, NO PULSE AT 1325, PAGED DR NOGUEIRA
--- NOTE | 2016-11-15 14:17 | NUR ---
PRONOUNCED BY DR NOGUEIRA AT 5375, SPOKE WITH CORONERS OFFICE, AMANUEL WINCHESTER, MAGGIE AND FAMILY AWARE, LEFT WITH AMANUEL WINCHESTER AT THIS TIME
--- NOTE | 2016-11-16 10:57 | NUR ---
Per CMS protocol, restraint report logged into data base.
--- NOTE | 2016-11-17 13:09 | CN ---
PATIENT NAME:AMBROSE PADILLA MEDICAL RECORD: [id number] : 38 LOCATION:[id number] ADMIT DATE: 11/13/16 ACCOUNT: [id number] CONSULTING PHYSICIAN: NARINDER SOUZA MD REFERRING PHYSICIAN: JA NOGUEIRA MD DATE OF CONSULTATION: 11/13/2016 CARDIOLOGY CONSULTATION DIAGNOSES: 1. Respiratory failure. 2. Congestive heart failure, chronic systolic dysfunction. 3. Coronary artery disease. 4. Renal failure. 5. Anemia. HISTORY: Mr. Padilla presents with respiratory failure, requiring mechanical intubation. He is in renal failure with creatinine of 3.2 and BUN of 84. He is anemic with hemoglobin of 8.0 and decreasing. His proBNP is elevated. Troponin is normal. He does have history of coronary artery disease with multivessel PTCA and stent, the last being in June of this year. He has a history of cardiomyopathy. Ejection fraction last by echocardiogram in September was in the 30% range. REVIEW OF SYSTEMS: The patient reports easy bruising but reports no swollen glands. The patient reports no fever, no night sweats, no significant weight gain, no significant weight loss. No significant exercise tolerance. The patient reports no dry eyes, no irritation, no vision change. Patient reports no difficulty hearing and no ear pain. Patient reports no frequent nose bleeds or nose and sinus problems. Patient reports on arm pain on exertion. No shortness of breath while lying down. No history of heart murmur. Patient reports no cough, no wheezing or coughing up blood. Patient reports no abdominal pain, no vomiting. Normal appetite. No diarrhea and not vomiting blood. No nausea and no constipation. Patient reports no incontinence. No difficulty urinating. No hematuria. No increased frequency. Patient reports no muscle aches. No weakness, no arthralgias, no back pain. No swelling of the extremities. Patient reports no abnormal mole, no jaundice, no rashes. Reports no loss of consciousness. No weakness and no numbness. No seizures, dizziness, or headaches. The patient reports no depression, no sleep disturbance, feeling safe in a relationship and no alcohol abuse. Patient reports on fatigue. Reports no runny nose or sinus pressure. No itching, no hives, and no frequent sneezing. PHYSICAL EXAMINATION: GENERAL APPEARANCE: Well-nourished, well-developed, appears stated age. Level of distress, comfortable. PSYCHIATRIC: Mental status, alert, normal affect. Orientation, oriented to time, place and person. EYES: Lids and conjunctivae, noninjected. No discharge, no pallor. ENT: Lips, teeth, gums, normal dentition. Oropharynx, no cyanosis, no pallor. NECK: Carotid arteries, bilateral normal upstroke, no bruits, no thrills. JUGULAR VEINS: No jugular venous pressure or distention. CERVICAL LYMPH NODES: Nontender, nonenlarged. THYROID: Not enlarged. Nontender. No nodules. LUNGS: Respiratory effort, unlabored. CONSULT REPORT [id number] AMBROSE PADILLA CHEST: Normal curvature. No thoracic deformity. No chest wall tenderness. Percussion, resonant. Auscultation, clear. No wheezes, no rales, no rhonchi. CARDIOVASCULAR: Precordial exam, nondisplaced. No heaves or pericardial thrills. Rate and rhythm, regular. Heart sounds, normal S1, normal S2. No S3, no gallop, no rub. Systolic murmur, not heard. Diastolic murmur, not heard. EXTREMITIES: No cyanosis, no edema. Peripheral pulses, full and equal in all extremities, except as noted. No bruits appreciated. ABDOMEN: Soft, nondistended. Normal aorta. No bruit. Nontender. No masses. Liver, nontender, no hepatomegaly. Spleen, nontender, no splenomegaly. MUSCULOSKELETAL: No joint tenderness. No joint swelling. No erythema. NEUROLOGICAL: Normal gait, normal strength, normal tone. SKIN: Warm and dry. OVERALL IMPRESSION: Respiratory failure. Unsure if heart failure is playing a contributing role in this. I do not think gross ischemia is at this point. He would benefit from dobutamine from a cardiac standpoint. He has multiple other issues including the renal failure and the anemia. Dobutamine will help with all these issues. We will start him on dobutamine fixed rate at 5 mcg per kilogram per minute. Other than that, from a cardiac standpoint, no other workup or treatment is necessary at this point. TRANSINT:[id number] Voice Confirmation ID: [id number] DOCUMENT ID: [id number] NARINDER SOUZA MD at 1303 CC: [id number] DICTATION DATE: 11/13/16 1227 STOREHOUSE CLERK: 11/13/16 1245 DIS IN 11/15/16 [facility] [address] [id number]
--- NOTE | 2016-11-27 11:43 | CN ---
PATIENT NAME:AMBROSE CORTES MEDICAL RECORD: [id number] : 38 LOCATION:[facility].2309 ADMIT DATE: 11/13/16 ACCOUNT: [id number] CONSULTING PHYSICIAN: BUBBA KANG MD REFERRING PHYSICIAN: LILLIAN NOGUEIRA MD DATE OF CONSULTATION: 11/13/2016 Pulmonary Consultation CONSULT REQUESTING PHYSICIAN: Lillian Nogueira MD REASON FOR CONSULTATION: Vent management, acute hypoxic hypercapnic respiratory failure. HISTORY OF PRESENT ILLNESS: Mr. Cortes is a 76-year-old gentleman. He was admitted to the hospital in September with pneumonia. The patient was brought from the assisted with acute mental status changes, found out the patient is on acute renal failure, congestive heart failure, acute respiratory failure. The history is now taken by reviewing the patient's note as well as talking to the nursing staff. PAST MEDICAL HISTORY: 1. Congestive heart failure, chronic systolic dysfunction. 2. Severe pulmonary hypertension secondary to congestive heart failure. 3. Chronic obstructive pulmonary disease. 4. Parkinson disease. 5. Hypertension. 6. Gastroesophageal reflux disease. 7. Peripheral vascular disease. 8. Peripheral neuropathy. 9. Diabetes mellitus type 2. 10. Hyperlipidemia. 11. Morbid obesity. PAST SURGICAL HISTORY: 1. Cholecystectomy. 2. Herniorrhaphy. 3. Keen replacement surgery. ALLERGIES: HE IS ALLERGIC TO CODEINE AND ROCEPHIN. PRESENT MEDICATIONS: On ThromboGenicstech was reviewed. PERSONAL AND SOCIAL HISTORY: The patient is a assisted resident. He is an ex-smoker. He is a nondrinker. FAMILY HISTORY: Noncontributory. REVIEW OF SYSTEMS: As in history of present illness. PHYSICAL EXAMINATION: GENERAL: Now, the patient is orally intubated and sedated. VITAL SIGNS: The blood pressure 122/68, pulse is 73, respirations 14, temperature 97.7, SpO2 is 100%. He is on assist control mechanical ventilation, tidal volume of 550. CONSULT REPORT [id number] AMBROSE CORTES HEENT: Conjunctiva is pale. Sclerae nonicteric. NECK: Supple. There is elevated JVD. CHEST: There are bilateral crackles. There is wheeze with expiration. HEART: Rate and rhythm regular with a grade II/ systolic murmur. ABDOMEN: Soft. Bowel sounds present. RECTAL: Deferred. EXTREMITIES: No cyanosis, no clubbing. There is 3+ pedal edema. SKIN: Warm, normal turgor. CENTRAL NERVOUS SYSTEM: The patient is orally intubated and sedated. There is no obvious cranial nerve abnormality. IMAGING: Chest radiograph, there is bilateral infiltrate, increased interstitial marking. OTHER LABORATORY DATA: CBC: WBC 5.8, hemoglobin 8.3, hematocrit 28.3, the platelet 172. Chemistry: Sodium is 140, potassium 5.9, chloride 107, bicarb is 28, BUN is 24, creatinine 3.2. Liver enzymes within normal range. ProBNP 9255. ABG: The pH was 7.2, pCO2 was 70, bicarb 27.5. IMPRESSION: 1. Acute hypoxic hypercapnic respiratory failure, which is multifactorial. 2. Respiratory acidosis secondary to acute hypoxic hypercapnic respiratory failure, which is multifactorial. 3. Pulmonary edema. 4. Bilateral pneumonia, most likely hospital-acquired pneumonia with the patient's recent hospitalization and assisted resident. 5. Acute exacerbation of chronic obstructive pulmonary disease. 6. Congestive heart failure with a chronic systolic dysfunction. 7. Severe pulmonary hypertension, most likely secondary to congestive heart failure. 8. Hyperkalemia. 9. Uueqq-pd-yusnbhm renal failure, most likely acute tubular necrosis. RECOMMENDATION: 1. We will continue mechanical ventilation, adjust the setting. 2. DVT and GI stress ulcer prevention. 3. Nebulizer. 4. Start him on antibiotics to cover for Gram-negative rods, possible MRSA. 5. Lasix IV. 6. Dr. Wray, cardiology consulted. We will consult nephrology. 7. Discussed with the patient's brother. According to the brother, he should not be intubated. Now, the patient is DNR, the family will decide regarding terminal extubation. 8. Follow up labs and chest radiograph. Dr. Nogueira, thank you for involving me in the care of Mr. Cortes. The critical care time is 50 minutes. TRANSINT:[id number] Voice Confirmation ID: [id number] DOCUMENT ID: [id number] CONSULT REPORT [id number] AMBROSE CORTES MUSHTAQ MD at 1143 CC: [id number] DICTATION DATE: 11/13/16 1030 SENIOR SALES MANAGER: 11/13/16 1151 DIS IN 11/15/16 [id number] [place] [address]
--- NOTE | 2016-12-04 15:54 | DS ---
PATIENT:AMBROSE PADILLA :38 MEDICAL RECORD: [id number] DISCHARGE SUMMARY ADMISSION DATE: 11/13/16 DISCHARGE DATE: 11/15/16 SUMMARY DATE OF ADMISSION: 11/13/2016 DATE OF DISCHARGE: 11/15/2016 This 76-year-old patient was admitted to the inpatient setting with acute respiratory failure, requiring mechanical ventilation, with several other abnormalities including acute kidney failure, hyperkalemia, anemia, pleural effusions, and hypoglycemia. The patient had some decompensated heart failure as well. He was placed on a D10 drip due to the hypoglycemia. He was on aggressive IV hydration, Dobutrex drip, and numerous antibiotics. The patient's clinical condition continued to decline despite aggressive medical therapy. He was made a DNR and he was pronounced on 11/15/2016. CAUSE OF : Acute respiratory failure secondary to CHF and pneumonia. TRANSINT:[id number] Voice Confirmation ID: [id number] DOCUMENT ID: [id number] Dictated By: DEBO GAMINO I have interviewed/examined the above patient and agree with these documented findings. JA NOGUEIRA MD at 1110 at 1553 CC: [id number] DICTATION DATE: 11/29/16915 SUPERVISOR [employer]NATIONAL RESERVATIONS: 11/29/16 1427 DIS IN 11/15/16 [facility] [address] [place] [address]
== END 2016-11-15 14:19 | DRG 208 ==
LOC: D.ER 03:49 → D.M2 06:10 → D.ICU 06:10
PROVIDERS: Family Medicine; Internal Medicine Pulmonary Disease; ADMIT Family Medicine
PROC: 0T9B70Z Drainage of Bladder with Drainage Device, Via Natural or Artificial Opening (ICD-10-PCS; principal; 2016-11-13)
PROC: 5A1945Z Respiratory Ventilation, 24-96 Consecutive Hours (ICD-10-PCS; 2016-11-13)
PROC: 0BH17EZ Insertion of Endotracheal Airway into Trachea, Via Natural or Artificial Opening (ICD-10-PCS; 2016-11-13)
DX: J96.02 Acute respiratory failure with hypercapnia (principal); I50.23 Acute on chronic systolic (congestive) heart failure; N17.0 Acute kidney failure with tubular necrosis; J18.1 Lobar pneumonia, unspecified organism; I13.0 Hypertensive heart and chronic kidney disease with heart failure and stage 1 through stage 4 chronic kidney disease, or unspecified chronic kidney disease; J44.0 Chronic obstructive pulmonary disease with (acute) lower respiratory infection; J44.1 Chronic obstructive pulmonary disease with (acute) exacerbation; E87.2 Acidosis; I42.9 Cardiomyopathy, unspecified; Z68.41 Body mass index [BMI] 40.0-44.9, adult; J96.01 Acute respiratory failure with hypoxia; N18.9 Chronic kidney disease, unspecified; E11.22 Type 2 diabetes mellitus with diabetic chronic kidney disease; Z79.4 Long term (current) use of insulin; E11.649 Type 2 diabetes mellitus with hypoglycemia without coma; E11.40 Type 2 diabetes mellitus with diabetic neuropathy, unspecified; D64.9 Anemia, unspecified; G20 Parkinson's disease; K21.9 Gastro-esophageal reflux disease without esophagitis; E78.5 Hyperlipidemia, unspecified; E66.01 Morbid (severe) obesity due to excess calories; E83.51 Hypocalcemia; E87.5 Hyperkalemia; I48.91 Unspecified atrial fibrillation; I95.9 Hypotension, unspecified; Z87.891 Personal history of nicotine dependence